=== PATIENT | male | born 1955 | race African-American/Black ===

== ENCOUNTER 2018-12-10 23:14 | Inpatient (IN) ==
[2018-12-10] MEDS: NOREPINEPHRINE 8 MG in SODIUM CHLORIDE 0.9% 242 ML IV PRN (23:37)
[2018-12-10] MEDS ORDERED: fentaNYL INJ 1,250 MCG in SODIUM CHLORIDE 0.9% 225 ML IV PRN (23:49)
[2018-12-10] MEDS ORDERED: SODIUM CHLORIDE 0.9% 500 ML IV STA (23:59)
[2018-12-11 00:20] LABS: ABG Oxygen Saturation 99.1 % (95-100); ABG PCO2 31.3 MM HG (35-48); ABG PH 7.444 (7.35-7.45); ABG PO2 181.8 MM HG (80-95); ABG TCO2 21.9 MMOL/L (23-27)
[2018-12-11] MEDS ORDERED: ASPIRIN 300 MG SUPP RECTAL ONE (00:48)
[2018-12-11] MEDS ORDERED: ASPIRIN 300 MG SUPP RECTAL STA (00:53)
[2018-12-11 00:58] LABS: Apearance,Urine Slightly Hazy (Clear); Bilirubin,Urine Negative (Negative); Blood, Urine Negative (Negative); Glucose,Urine (UA) >=500 mg/dL (Negative); Hyaline Casts,Urine 4 /LPF (0-3); Ketones,Urine 5 mg/dL (Negative); Mucus,Urine Occasional /LPF (Occasional); Nitrite,Urine Negative (Negative); Protein,Urine 30 MG/DL; RBC,Urine 1 /HPF (0-4); Squamous Epithelial Cell,Urine Occasional /HPF (0-10); Urine Color Yellow (Yellow); Urine Specific Gravity 1.026 (1.001-1.035); Urine Urobilinogen < 2.0 EU/DL (0.2-1.0); WBC,Urine 2 /HPF (0-6)
[2018-12-11] MEDS ORDERED: INSULIN LISPRO 100 UNIT/ML IV STA (01:01)
[2018-12-11] MEDS ORDERED: INSULIN LISPRO 100 UNIT/ML ONE (01:06)
[2018-12-11 01:17] LABS: Basophils % 0.3 % (0.0-0.8); Hematocrit 51.6 VOL% (42.0-52.0); Hemoglobin 15.5 GM/DL (14.0-18.0); Immature Granulocytes % 0.3 %; Immature Granulocytes Absolute 0.04 #; Lymphocytes # 1.5 10*3/uL (1.4-4.0); Lymphocytes % 12.3 % (21.2-54.2); Mean Corpuscular Hemoglobin 30 PG (27-34); Mean Corpuscular Volume 98.9 FL (87-102); Mean Platelet Volume 11.2 FL (9.6-12.0); Monocytes # 1.2 10*3/uL (0.11-0.8); Monocytes % 10.2 % (1.7-12.7); NRBC # 0.03 10*3/uL; Neutrophils # 9.3 10*3/uL (1.4-7.4); Neutrophils % 76.9 % (38.7-73.9); Platelet Count 426 T/CUMM (130-400); Red Blood Count 5.22 MC/CUMM (3.8-5.5); Red Cell Distribution Width 13.2 % (9.3-17.3); White Blood Count 12.2 T/CUMM (4-12)
[2018-12-11] MEDS ORDERED: LIDOCAINE 1% 20 ML VIAL ONE (01:19)
[2018-12-11 01:58] LABS: INR 1.1; PT Patient Result 11.4 SECS; Partial Thromboplastin Time 24.4 SECS (0-40)
[2018-12-11] MEDS ORDERED: ENOXAPARIN 30 MG/0.3 ML SYRINGE ONE (01:58)
[2018-12-11 02:06] LABS: Band Neutrophils 5 % (0-10); Lymphocytes 16 % (20-55); Metamyelocytes 1 %; Myelocytes 1 %; Segmented Neutrophils 68 % (50-85)
[2018-12-11 02:07] LABS: Platelet Estimate Increased
[2018-12-11 02:08] LABS: Total Cells Counted 100
[2018-12-11 02:15] LABS: Albumin 2.9 G/DL (3.4-5.0); Bilirubin,Total 0.5 MG/DL (0.2-1.0); Calcium 8.4 MG/DL (8.5-10.1); Osmolality,Calculated 336.3 MOS/KG (273-304); Thyroid Stimulating Hormone 4.03 uIU/ml (0.358-3.74); Total Protein 7.1 G/DL (6.4-8.3)
[2018-12-11] MEDS ORDERED: ALBUTEROL/IPRATROPIUM 3 ML NEB RESP TX PRN (02:17)
[2018-12-11 03:27] LABS: Risk Ratio 6.16; VLDL CHOLESTEROL 42.8 MG/DL
[2018-12-11 03:43] LABS: Troponin I 0.475 NG/ML (0.00-0.045)
[2018-12-11 03:44] LABS: ABG Base Excess -2.9 MMOL/L (-2.5-2.5); ABG Oxygen Saturation 99.7 % (95-100); ABG PCO2 32.4 MM HG (35-48); ABG PH 7.413 (7.35-7.45); ABG TCO2 17.7 MMOL/L (23-27)
[2018-12-11 04:06] LABS: Troponin I 0.491 NG/ML (0.00-0.045)
[2018-12-11 04:16] LABS: Basophils % 0.3 % (0.0-0.8); Eosinophils % 0.1 % (0.00-10.9); Hematocrit 45.6 VOL% (42.0-52.0); Hemoglobin 13.9 GM/DL (14.0-18.0); Immature Granulocytes % 0.4 %; Immature Granulocytes Absolute 0.05 #; Lymphocytes # 1.8 10*3/uL (1.4-4.0); Lymphocytes % 15.7 % (21.2-54.2); Mean Corpuscular HGB Conc 30.5 GM/DL (32-36); Mean Corpuscular Hemoglobin 30 PG (27-34); Mean Corpuscular Volume 99.6 FL (87-102); Mean Platelet Volume 10.7 FL (9.6-12.0); Monocytes # 1.1 10*3/uL (0.11-0.8); Monocytes % 9.9 % (1.7-12.7); NRBC # 0.03 10*3/uL; Neutrophils # 8.4 10*3/uL (1.4-7.4); Neutrophils % 73.6 % (38.7-73.9); Platelet Count 327 T/CUMM (130-400); Red Blood Count 4.58 MC/CUMM (3.8-5.5); Red Cell Distribution Width 12.8 % (9.3-17.3); White Blood Count 11.5 T/CUMM (4-12)
[2018-12-11 04:25] LABS: Albumin 2.8 G/DL (3.4-5.0); Bilirubin,Total 0.6 MG/DL (0.2-1.0); Calcium 7.9 MG/DL (8.5-10.1); Osmolality,Calculated 329.7 MOS/KG (273-304); Potassium 3.9 MMOL/L (3.5-5.1); Total Protein 6.8 G/DL (6.4-8.3)
[2018-12-11 04:30] LABS: Band Neutrophils 9 % (0-10); Lymphocytes 25 % (20-55); Segmented Neutrophils 60 % (50-85); Total Cells Counted 100
[2018-12-11] MEDS: SODIUM CHLORIDE 0.9% 1,000 ML IV SCH ×2 (04:30→13:31)
[2018-12-11 04:34] LABS: Platelet Estimate Normal; Polychromasia Few
[2018-12-11] MEDS ORDERED: INSULIN LISPRO 100 UNIT/ML SUBCUT SCH (06:00)
[2018-12-11 06:13] LABS: Apearance,Urine CLEAR (Clear); Bilirubin,Urine Negative (Negative); Blood, Urine Small mg/dL (Negative); Glucose,Urine (UA) >=500 mg/dL (Negative); Ketones,Urine Negative (Negative); Nitrite,Urine Negative (Negative); Protein,Urine 30 MG/DL; RBC,Urine 23 /HPF (0-4); Renal Epithelial Cells,Urine Occasional /HPF (<1); Urine Color Yellow (Yellow); Urine Specific Gravity > 1.060 (1.001-1.035); WBC,Urine 4 /HPF (0-6)
[2018-12-11] MEDS ORDERED: ASPIRIN EC 81 MG TABLET PO SCH (09:00)
[2018-12-11] MEDS ORDERED: DORZOLAMIDE/TIMOLOL OPH SOLN 10 ML BOTTLE BOTH EYES SCH (09:00)
[2018-12-11] MEDS ORDERED: CLINDAMYCIN 300 MG CAPSULE PO SCH (09:00)
[2018-12-11] MEDS ORDERED: CEFUROXIME 500 MG TABLET PO SCH (09:00)
[2018-12-11] MEDS: CLINDAMYCIN INJ 600 MG in PREMIX 1 EACH IV SCH ×3 (09:06→18:30)
[2018-12-11] MEDS: PIPERACILLIN/TAZOBACTAM 3,375 MG in SODIUM CHLORIDE 0.9% 100 ML IV SCH ×2 (09:07→17:36)
[2018-12-11] MEDS: methylPREDNISolone SOD SUC 40 MG/1 ML VIAL IV SCH ×2 (09:07→21:30)
[2018-12-11] MEDS: INSULIN GLARGINE 100 UNIT/ML SUBCUT SCH (09:07)
[2018-12-11] MEDS: ATORVASTATIN 80 MG TABLET PO SCH (09:08)
[2018-12-11] MEDS: OMEGA 3 ACID ETHYL ESTERS 1 GM CAPSULE PO SCH ×2 (09:08→21:30)
[2018-12-11] MEDS: PANTOPRAZOLE 40 MG VIAL IV SCH (09:08)
[2018-12-11] MEDS: METOPROLOL TARTRATE 25 MG TABLET PO SCH ×2 (09:08→21:30)
[2018-12-11 09:50] LABS: Calcium 7.9 MG/DL (8.5-10.1); Osmolality,Calculated 326.7 MOS/KG (273-304); Potassium 3.7 MMOL/L (3.5-5.1)
[2018-12-11] MEDS: INSULIN REGULAR DRIP 100 ML IV PRN (10:14)
[2018-12-11] MEDS: NOREPINEPHRINE 8 MG in SODIUM CHLORIDE 0.9% 242 ML IV PRN (10:56)
[2018-12-11] MEDS: INSULIN REGULAR 100 UNIT/ML IV PRN ×3 (11:51→16:15)
[2018-12-11] MEDS: ENOXAPARIN 30 MG/0.3 ML SYRINGE SUBCUT SCH (13:30)
[2018-12-11] MEDS: BRIMONIDINE 0.15% OPH SOLN 1 DROP/DROPS BOTTLE BOTH EYES SCH ×2 (13:30→21:30)
[2018-12-11] MEDS ORDERED: HEPARIN/NACL 0.9% 2 UNITS/ML 500 ML IV ONE (15:15)
[2018-12-11] MEDS: fentaNYL INJ 1,250 MCG in SODIUM CHLORIDE 0.9% 225 ML IV PRN (18:04)
[2018-12-11] MEDS: BIMATOPROST 0.01% OPH SOLN 2.5 ML BOTTLE BOTH EYES SCH (21:30)
[2018-12-12] MEDS: SODIUM CHLORIDE 0.9% 1,000 ML IV SCH
[2018-12-12] MEDS: PIPERACILLIN/TAZOBACTAM 3,375 MG in SODIUM CHLORIDE 0.9% 100 ML IV SCH ×4 (00:30→23:34)
[2018-12-12] MEDS: CLINDAMYCIN INJ 600 MG in PREMIX 1 EACH IV SCH ×4 (01:30→20:20)
[2018-12-12] MEDS: INSULIN REGULAR DRIP 100 ML IV PRN (05:58)
[2018-12-12] MEDS ORDERED: ADENOSINE 6 MG/2 ML VIAL ONE ×2 (06:34→06:43)
[2018-12-12] MEDS ORDERED: ADENOSINE 6 MG/2 ML VIAL IV ONE ×2 (06:41→06:44)
[2018-12-12 06:47] LABS: ABG Base Excess -1.7 MMOL/L (-2.5-2.5); ABG HCO3 22.9 MMOL/L (20-26); ABG Oxygen Saturation 94.4 % (95-100); ABG PCO2 29.8 MM HG (35-48); ABG PO2 65.7 MM HG (80-95)
[2018-12-12 07:10] LABS: Basophils % 0.2 % (0.0-0.8); Hematocrit 41.4 VOL% (42.0-52.0); Immature Granulocytes % 0.6 %; Immature Granulocytes Absolute 0.07 #; Lymphocytes # 2.3 10*3/uL (1.4-4.0); Lymphocytes % 18.5 % (21.2-54.2); Mean Corpuscular HGB Conc 29.7 GM/DL (32-36); Mean Corpuscular Hemoglobin 30 PG (27-34); Mean Platelet Volume 10.9 FL (9.6-12.0); Monocytes # 0.9 10*3/uL (0.11-0.8); Monocytes % 6.7 % (1.7-12.7); NRBC # 0.05 10*3/uL; Neutrophils # 9.4 10*3/uL (1.4-7.4); Platelet Count 205 T/CUMM (130-400); Red Cell Distribution Width 13.2 % (9.3-17.3); White Blood Count 12.6 T/CUMM (4-12)
[2018-12-12 07:11] LABS: Hemoglobin 12.3 GM/DL (14.0-18.0)
[2018-12-12 07:15] LABS: Albumin 2.1 G/DL (3.4-5.0); Bilirubin,Total 1.3 MG/DL (0.2-1.0); Calcium 7.5 MG/DL (8.5-10.1); Osmolality,Calculated 329.5 MOS/KG (273-304); Potassium 3.7 MMOL/L (3.5-5.1); Total Protein 6.3 G/DL (6.4-8.3)
[2018-12-12 07:30] LABS: Band Neutrophils 1 % (0-10); Hypochromasia Slight; Lymphocytes 16 % (20-55); Platelet Estimate Adequate; Segmented Neutrophils 79 % (50-85); Total Cells Counted 100
[2018-12-12] MEDS ORDERED: AMIODARONE 450 MG/9 ML VIAL IV ONE (07:44)
[2018-12-12] MEDS ORDERED: AMIODARONE INJ 150 MG in DEXTROSE 5% 100 ML IV ONE ×2 (07:45→07:49)
[2018-12-12] MEDS ORDERED: AMIODARONE 150 MG/3 ML VIAL ONE (07:58)
[2018-12-12] MEDS ORDERED: AMIODARONE INJ 450 MG in DEXTROSE 5% 241 ML IV SCH ×3 (08:00→14:00)
[2018-12-12] MEDS ORDERED: SODIUM CHLORIDE 0.45% 1,000 ML IV SCH (08:00)
[2018-12-12] MEDS ORDERED: ASPIRIN CHEW 81 MG TABLET PO ONE (08:02)
[2018-12-12] MEDS: METOPROLOL TARTRATE 25 MG TABLET PO SCH ×2 (08:13→21:10)
[2018-12-12] MEDS: ASPIRIN CHEW 81 MG TABLET PO SCH (08:14)
[2018-12-12] MEDS: ATORVASTATIN 80 MG TABLET PO SCH (08:14)
[2018-12-12] MEDS: OMEGA 3 ACID ETHYL ESTERS 1 GM CAPSULE PO SCH ×2 (08:14→21:10)
[2018-12-12] MEDS: methylPREDNISolone SOD SUC 40 MG/1 ML VIAL IV SCH ×2 (08:15→20:20)
[2018-12-12] MEDS: ENOXAPARIN 30 MG/0.3 ML SYRINGE SUBCUT SCH (08:15)
[2018-12-12] MEDS: INSULIN GLARGINE 100 UNIT/ML SUBCUT SCH (08:15)
[2018-12-12] MEDS: BRIMONIDINE 0.15% OPH SOLN 1 DROP/DROPS BOTTLE BOTH EYES SCH ×2 (08:16→21:10)
[2018-12-12] MEDS: PANTOPRAZOLE 40 MG VIAL IV SCH (08:18)
[2018-12-12] MEDS ORDERED: GLUCAGON 1 MG VIAL IM PRN (09:25)
[2018-12-12] MEDS ORDERED: DEXTROSE 5% 1,000 ML IV SCH (09:30)
[2018-12-12] MEDS: fentaNYL INJ 1,250 MCG in SODIUM CHLORIDE 0.9% 225 ML IV PRN (09:39)
[2018-12-12] MEDS: ACETAMINOPHEN 325 MG/10.15 ML UDCUP PO PRN ×2 (09:45→13:35)
[2018-12-12] MEDS ORDERED: DEXTROSE 50% 25 GM/50 ML VIAL IV PRN (11:23)
[2018-12-12] MEDS: INSULIN REGULAR 100 UNIT/ML SUBCUT SCH ×2 (11:51→18:09)
[2018-12-12] MEDS ORDERED: IBUPROFEN 100 MG/5 ML UDCUP PO ONE (14:09)
[2018-12-12] MEDS: AMIODARONE INJ 450 MG in DEXTROSE 5% 241 ML IV SCH (14:58)
[2018-12-12] MEDS: MENTHOL/ZINC OXIDE OINT 71 GM JAR TOP SCH ×2 (16:11→21:10)
[2018-12-12] MEDS: SODIUM CHLORIDE 0.45% 1,000 ML IV SCH (18:19)
[2018-12-12] MEDS ORDERED: INSULIN REGULAR 100 UNIT/ML SUBCUT ONE (21:08)
[2018-12-12] MEDS: BIMATOPROST 0.01% OPH SOLN 2.5 ML BOTTLE BOTH EYES SCH (21:22)
[2018-12-13] MEDS: INSULIN REGULAR 100 UNIT/ML SUBCUT SCH (00:13)
[2018-12-13] MEDS: INSULIN GLARGINE 100 UNIT/ML SUBCUT SCH ×3 (00:14→20:03)
[2018-12-13] MEDS: CLINDAMYCIN INJ 600 MG in PREMIX 1 EACH IV SCH ×4 (01:41→20:03)
[2018-12-13] MEDS: fentaNYL INJ 1,250 MCG in SODIUM CHLORIDE 0.9% 225 ML IV PRN ×2 (02:46→15:05)
[2018-12-13] MEDS: INSULIN REGULAR DRIP 100 ML IV PRN ×4 (04:36→23:13)
[2018-12-13 04:58] LABS: ABG Base Excess -5.4 MMOL/L (-2.5-2.5); ABG HCO3 18.5 MMOL/L (20-26); ABG Oxygen Saturation 97.5 % (95-100); ABG PCO2 30.5 MM HG (35-48); ABG PO2 107.2 MM HG (80-95); ABG TCO2 19.4 MMOL/L (23-27)
[2018-12-13 05:08] LABS: Albumin 1.9 G/DL (3.4-5.0); Bilirubin,Total 1.2 MG/DL (0.2-1.0); Calcium 6.6 MG/DL (8.5-10.1)
[2018-12-13 05:43] LABS: Basophils % 0.2 % (0.0-0.8); Immature Granulocytes % 1.1 %; Immature Granulocytes Absolute 0.13 #; Lymphocytes # 0.8 10*3/uL (1.4-4.0); Lymphocytes % 6.7 % (21.2-54.2); Mean Corpuscular HGB Conc 29.7 GM/DL (32-36); Mean Corpuscular Hemoglobin 31 PG (27-34); Mean Corpuscular Volume 102.7 FL (87-102); Monocytes # 0.7 10*3/uL (0.11-0.8); Monocytes % 5.9 % (1.7-12.7); NRBC # 0.12 10*3/uL; Neutrophils # 10.5 10*3/uL (1.4-7.4); Neutrophils % 86.1 % (38.7-73.9); Platelet Count 167 T/CUMM (130-400); Red Blood Count 3.31 MC/CUMM (3.8-5.5); Red Cell Distribution Width 13.3 % (9.3-17.3); White Blood Count 12.2 T/CUMM (4-12)
[2018-12-13 05:47] LABS: Hemoglobin 10.1 GM/DL (14.0-18.0)
[2018-12-13 05:57] LABS: Band Neutrophils 1 % (0-10); Hypochromasia 1+; Lymphocytes 7 % (20-55); Nucleated Red Blood Cells 1 (0-5); Platelet Estimate Adequate; Segmented Neutrophils 87 % (50-85); Total Cells Counted 100
[2018-12-13] MEDS: AMIODARONE INJ 450 MG in DEXTROSE 5% 241 ML IV SCH (06:14)
[2018-12-13] MEDS: PANTOPRAZOLE 40 MG VIAL IV SCH (08:04)
[2018-12-13] MEDS: ENOXAPARIN 30 MG/0.3 ML SYRINGE SUBCUT SCH (08:04)
[2018-12-13] MEDS: ACETAMINOPHEN 325 MG/10.15 ML UDCUP PO PRN ×4 (08:05→20:04)
[2018-12-13] MEDS: ASPIRIN CHEW 81 MG TABLET PO SCH (08:06)
[2018-12-13] MEDS: ATORVASTATIN 80 MG TABLET PO SCH (08:06)
[2018-12-13] MEDS: OMEGA 3 ACID ETHYL ESTERS 1 GM CAPSULE PO SCH ×2 (08:06→20:04)
[2018-12-13] MEDS: methylPREDNISolone SOD SUC 40 MG/1 ML VIAL IV SCH (08:07)
[2018-12-13] MEDS: METOPROLOL TARTRATE 25 MG TABLET PO SCH ×2 (08:07→20:10)
[2018-12-13] MEDS: BRIMONIDINE 0.15% OPH SOLN 1 DROP/DROPS BOTTLE BOTH EYES SCH ×2 (08:11→20:10)
[2018-12-13] MEDS: MENTHOL/ZINC OXIDE OINT 71 GM JAR TOP SCH ×2 (08:11→20:07)
[2018-12-13] MEDS: PIPERACILLIN/TAZOBACTAM 3,375 MG in SODIUM CHLORIDE 0.9% 100 ML IV SCH ×3 (08:16→23:20)
[2018-12-13] MEDS: SODIUM CHLORIDE 0.45% 1,000 ML IV SCH (09:39)
[2018-12-13] MEDS ORDERED: NOREPINEPHRINE 4 MG/4 ML VIAL IV ONE (09:51)
[2018-12-13] MEDS: NOREPINEPHRINE 8 MG in SODIUM CHLORIDE 0.9% 242 ML IV PRN ×2 (09:59→18:42)
[2018-12-13] MEDS: AMIODARONE 200 MG TABLET PO SCH (20:07)
[2018-12-13] MEDS: BIMATOPROST 0.01% OPH SOLN 2.5 ML BOTTLE BOTH EYES SCH (20:08)
[2018-12-14] MEDS: SODIUM CHLORIDE 0.45% 1,000 ML IV SCH ×2 (00:04→19:13)
[2018-12-14] MEDS: METOPROLOL TARTRATE 25 MG TABLET PO SCH ×3 (01:54→20:50)
[2018-12-14] MEDS ORDERED: IBUPROFEN 800 MG TABLET PO ONE (01:55)
[2018-12-14] MEDS: CLINDAMYCIN INJ 600 MG in PREMIX 1 EACH IV SCH ×4 (02:12→21:13)
[2018-12-14] MEDS: INSULIN REGULAR DRIP 100 ML IV PRN (03:30)
[2018-12-14 04:24] LABS: ABG HCO3 18.7 MMOL/L (20-26); ABG Oxygen Saturation 96.7 % (95-100); ABG PCO2 29.9 MM HG (35-48); ABG PH 7.415 (7.35-7.45); ABG PO2 90.8 MM HG (80-95); ABG TCO2 19.7 MMOL/L (23-27)
[2018-12-14 04:26] LABS: Basophils % 0.1 % (0.0-0.8); Hematocrit 29.8 VOL% (42.0-52.0); Hemoglobin 8.8 GM/DL (14.0-18.0); Immature Granulocytes % 0.8 %; Immature Granulocytes Absolute 0.11 #; Lymphocytes # 1.9 10*3/uL (1.4-4.0); Mean Corpuscular HGB Conc 29.5 GM/DL (32-36); Mean Corpuscular Hemoglobin 30 PG (27-34); Mean Corpuscular Volume 101.4 FL (87-102); Mean Platelet Volume 12.1 FL (9.6-12.0); Monocytes # 0.8 10*3/uL (0.11-0.8); NRBC # 0.03 10*3/uL; Neutrophils # 10.9 10*3/uL (1.4-7.4); Neutrophils % 79.1 % (38.7-73.9); Platelet Count 187 T/CUMM (130-400); Red Blood Count 2.94 MC/CUMM (3.8-5.5); Red Cell Distribution Width 12.9 % (9.3-17.3); White Blood Count 13.8 T/CUMM (4-12)
[2018-12-14 04:54] LABS: Albumin 1.9 G/DL (3.4-5.0); Band Neutrophils 1 % (0-10); Bilirubin,Total 1.1 MG/DL (0.2-1.0); Calcium 6.4 MG/DL (8.5-10.1); Hypochromasia 1+; Lymphocytes 23 % (20-55); Osmolality,Calculated 318.6 MOS/KG (273-304); Platelet Estimate Adequate; Potassium 3.6 MMOL/L (3.5-5.1); Segmented Neutrophils 72 % (50-85); Total Cells Counted 100; Total Protein 5.6 G/DL (6.4-8.3)
[2018-12-14] MEDS: PIPERACILLIN/TAZOBACTAM 3,375 MG in SODIUM CHLORIDE 0.9% 100 ML IV SCH ×2 (08:24→16:58)
[2018-12-14] MEDS: AMIODARONE 200 MG TABLET PO SCH ×2 (08:30→21:12)
[2018-12-14] MEDS: ASPIRIN CHEW 81 MG TABLET PO SCH (08:30)
[2018-12-14] MEDS: ATORVASTATIN 80 MG TABLET PO SCH (08:30)
[2018-12-14] MEDS: NOREPINEPHRINE 8 MG in SODIUM CHLORIDE 0.9% 242 ML IV PRN ×2 (08:31→17:55)
[2018-12-14] MEDS: OMEGA 3 ACID ETHYL ESTERS 1 GM CAPSULE PO SCH ×2 (08:33→21:12)
[2018-12-14] MEDS: PANTOPRAZOLE 40 MG VIAL IV SCH (08:51)
[2018-12-14] MEDS: ENOXAPARIN 30 MG/0.3 ML SYRINGE SUBCUT SCH (08:52)
[2018-12-14] MEDS: INSULIN GLARGINE 100 UNIT/ML SUBCUT SCH ×2 (08:53→21:13)
[2018-12-14] MEDS: BRIMONIDINE 0.15% OPH SOLN 1 DROP/DROPS BOTTLE BOTH EYES SCH ×2 (08:56→21:12)
[2018-12-14] MEDS: MENTHOL/ZINC OXIDE OINT 71 GM JAR TOP SCH ×2 (08:57→21:13)
[2018-12-14] MEDS: DEXTROSE 5% 1,000 ML IV SCH ×3 (12:55→23:15)
[2018-12-14] MEDS ORDERED: DIGOXIN 0.5 MG/2 ML AMP IV ONE (13:11)
[2018-12-14] MEDS ORDERED: ETOMIDATE 40 MG/20 ML VIAL IV ONE (15:14)
[2018-12-14] MEDS ORDERED: SUCCINYLCHOLINE 200 MG/10 ML VIAL ONE (15:15)
[2018-12-14] MEDS ORDERED: PROPOFOL 200 MG/20 ML VIAL IV ONE (15:30)
[2018-12-14] MEDS: fentaNYL INJ 1,250 MCG in SODIUM CHLORIDE 0.9% 225 ML IV PRN ×2 (15:30→20:49)
[2018-12-14] MEDS ORDERED: PROPOFOL 1,000 MG/100 ML BOTTLE IV ONE (15:32)
[2018-12-14 16:23] LABS: ABG Base Excess -6.7 MMOL/L (-2.5-2.5); ABG HCO3 18.9 MMOL/L (20-26); ABG Oxygen Saturation 98.6 % (95-100); ABG PH 7.315 (7.35-7.45); ABG PO2 179.3 MM HG (80-95); ABG TCO2 20.1 MMOL/L (23-27)
[2018-12-14] MEDS ORDERED: DEXTROSE 5% 500 ML IV SCH (17:00)
[2018-12-14] MEDS: PROPOFOL 1,000 MG/100 ML BOTTLE IV SCH ×2 (17:01→19:40)
[2018-12-14] MEDS: BIMATOPROST 0.01% OPH SOLN 2.5 ML BOTTLE BOTH EYES SCH (21:12)
[2018-12-14] MEDS: NOREPINEPHRINE 16 MG in SODIUM CHLORIDE 0.9% 234 ML IV PRN (21:57)
[2018-12-15] MEDS: PIPERACILLIN/TAZOBACTAM 3,375 MG in SODIUM CHLORIDE 0.9% 100 ML IV SCH ×3 (00:30→17:40)
[2018-12-15] MEDS: CLINDAMYCIN INJ 600 MG in PREMIX 1 EACH IV SCH ×4 (01:11→19:51)
[2018-12-15] MEDS: fentaNYL INJ 1,250 MCG in SODIUM CHLORIDE 0.9% 225 ML IV PRN ×3 (02:47→20:29)
[2018-12-15] MEDS: PROPOFOL 1,000 MG/100 ML BOTTLE IV SCH ×4 (04:41→22:36)
[2018-12-15 04:50] LABS: ABG Base Excess -5.1 MMOL/L (-2.5-2.5); ABG HCO3 20.2 MMOL/L (20-26); ABG PCO2 27.8 MM HG (35-48); ABG PH 7.422 (7.35-7.45); ABG TCO2 16.2 MMOL/L (23-27)
[2018-12-15 05:05] LABS: Basophils % 0.1 % (0.0-0.8); Eosinophils % 0.3 % (0.00-10.9); Hematocrit 24.6 VOL% (42.0-52.0); Hemoglobin 7.2 GM/DL (14.0-18.0); Immature Granulocytes % 1.8 %; Immature Granulocytes Absolute 0.21 #; Lymphocytes # 1.4 10*3/uL (1.4-4.0); Lymphocytes % 11.6 % (21.2-54.2); Mean Corpuscular HGB Conc 29.3 GM/DL (32-36); Mean Corpuscular Hemoglobin 30 PG (27-34); Mean Corpuscular Volume 103.4 FL (87-102); Mean Platelet Volume 12.8 FL (9.6-12.0); Monocytes # 0.7 10*3/uL (0.11-0.8); Monocytes % 6.1 % (1.7-12.7); Neutrophils # 9.3 10*3/uL (1.4-7.4); Neutrophils % 80.1 % (38.7-73.9); Platelet Count 172 T/CUMM (130-400); Red Blood Count 2.38 MC/CUMM (3.8-5.5); Red Cell Distribution Width 13.1 % (9.3-17.3); White Blood Count 11.6 T/CUMM (4-12)
[2018-12-15 05:29] LABS: Hypochromasia 1+; Lymphocytes 16 % (20-55); Nucleated Red Blood Cells 1 (0-5); Platelet Estimate Adequate; Segmented Neutrophils 80 % (50-85); Total Cells Counted 100
[2018-12-15 05:36] LABS: Albumin 1.6 G/DL (3.4-5.0); Bilirubin,Total 1.6 MG/DL (0.2-1.0); Calcium 6.8 MG/DL (8.5-10.1); Osmolality,Calculated 318.7 MOS/KG (273-304); Potassium 4.4 MMOL/L (3.5-5.1); Total Protein 5.1 G/DL (6.4-8.3)
[2018-12-15] MEDS ORDERED: SODIUM CHLORIDE 0.9% 1,000 ML IV PRN ×2 (07:22→09:43)
[2018-12-15] MEDS: METOPROLOL TARTRATE 25 MG TABLET PO SCH ×2 (09:22→20:13)
[2018-12-15] MEDS: ATORVASTATIN 80 MG TABLET PO SCH (09:22)
[2018-12-15] MEDS: OMEGA 3 ACID ETHYL ESTERS 1 GM CAPSULE PO SCH ×2 (09:22→20:27)
[2018-12-15] MEDS: AMIODARONE 200 MG TABLET PO SCH ×2 (09:22→20:27)
[2018-12-15] MEDS: ASPIRIN CHEW 81 MG TABLET PO SCH (09:23)
[2018-12-15] MEDS: BRIMONIDINE 0.15% OPH SOLN 1 DROP/DROPS BOTTLE BOTH EYES SCH ×2 (09:23→20:27)
[2018-12-15] MEDS: ENOXAPARIN 30 MG/0.3 ML SYRINGE SUBCUT SCH (09:23)
[2018-12-15] MEDS: MENTHOL/ZINC OXIDE OINT 71 GM JAR TOP SCH ×2 (09:24→20:27)
[2018-12-15] MEDS: PANTOPRAZOLE 40 MG VIAL IV SCH (09:24)
[2018-12-15] MEDS: INSULIN GLARGINE 100 UNIT/ML SUBCUT SCH ×2 (09:25→20:27)
[2018-12-15] MEDS: SODIUM CHLORIDE 0.9% 1,000 ML IV SCH (13:15)
[2018-12-15] MEDS: DEXTROSE 5% 1,000 ML IV SCH (14:54)
[2018-12-15] MEDS: NOREPINEPHRINE 16 MG in SODIUM CHLORIDE 0.9% 234 ML IV PRN (14:55)
[2018-12-15] MEDS ORDERED: INSULIN LISPRO 100 UNIT/ML SUBCUT SCH (18:00)
[2018-12-15] MEDS: BIMATOPROST 0.01% OPH SOLN 2.5 ML BOTTLE BOTH EYES SCH (20:27)
[2018-12-15] MEDS: INSULIN LISPRO 100 UNIT/ML SUBCUT SCH (20:27)
[2018-12-16] MEDS: PIPERACILLIN/TAZOBACTAM 3,375 MG in SODIUM CHLORIDE 0.9% 100 ML IV SCH ×4 (00:11→23:17)
[2018-12-16] MEDS: INSULIN LISPRO 100 UNIT/ML SUBCUT SCH ×7 (00:20→23:17)
[2018-12-16] MEDS: SODIUM CHLORIDE 0.9% 1,000 ML IV SCH (01:44)
[2018-12-16] MEDS: CLINDAMYCIN INJ 600 MG in PREMIX 1 EACH IV SCH ×3 (01:44→13:03)
[2018-12-16 04:13] LABS: ABG Base Excess -6.1 MMOL/L (-2.5-2.5); ABG HCO3 19.3 MMOL/L (20-26); ABG Oxygen Saturation 93.8 % (95-100); ABG PCO2 31.3 MM HG (35-48); ABG PH 7.375 (7.35-7.45); ABG PO2 67.4 MM HG (80-95); ABG TCO2 17.2 MMOL/L (23-27)
[2018-12-16] MEDS: fentaNYL INJ 1,250 MCG in SODIUM CHLORIDE 0.9% 225 ML IV PRN ×4 (04:19→21:50)
[2018-12-16 04:26] LABS: Basophils % 0.1 % (0.0-0.8); Eosinophils # 0.1 10*3/uL (0.0-0.87); Eosinophils % 0.7 % (0.00-10.9); Hematocrit 27.3 VOL% (42.0-52.0); Hemoglobin 8.3 GM/DL (14.0-18.0); Immature Granulocytes % 2.1 %; Immature Granulocytes Absolute 0.22 #; Lymphocytes # 1.7 10*3/uL (1.4-4.0); Lymphocytes % 15.8 % (21.2-54.2); Mean Corpuscular HGB Conc 30.4 GM/DL (32-36); Mean Corpuscular Hemoglobin 30 PG (27-34); Mean Corpuscular Volume 99.6 FL (87-102); Mean Platelet Volume 12.3 FL (9.6-12.0); Monocytes # 0.8 10*3/uL (0.11-0.8); Monocytes % 7.2 % (1.7-12.7); Neutrophils # 7.8 10*3/uL (1.4-7.4); Neutrophils % 74.1 % (38.7-73.9); Platelet Count 175 T/CUMM (130-400); Red Blood Count 2.74 MC/CUMM (3.8-5.5); White Blood Count 10.5 T/CUMM (4-12)
[2018-12-16 04:41] LABS: Calcium 7.1 MG/DL (8.5-10.1); Osmolality,Calculated 316.6 MOS/KG (273-304); Potassium 4.4 MMOL/L (3.5-5.1)
[2018-12-16 04:49] LABS: Hypochromasia 1+; Platelet Estimate Adequate
[2018-12-16] MEDS: PROPOFOL 1,000 MG/100 ML BOTTLE IV SCH ×3 (06:40→19:18)
[2018-12-16] MEDS: ACETAMINOPHEN 325 MG/10.15 ML UDCUP PO PRN (08:17)
[2018-12-16] MEDS: BRIMONIDINE 0.15% OPH SOLN 1 DROP/DROPS BOTTLE BOTH EYES SCH ×2 (08:17→20:00)
[2018-12-16] MEDS: ASPIRIN CHEW 81 MG TABLET PO SCH (08:17)
[2018-12-16] MEDS: PANTOPRAZOLE 40 MG VIAL IV SCH (08:17)
[2018-12-16] MEDS: OMEGA 3 ACID ETHYL ESTERS 1 GM CAPSULE PO SCH ×2 (08:18→21:06)
[2018-12-16] MEDS: AMIODARONE 200 MG TABLET PO SCH (08:18)
[2018-12-16] MEDS: ENOXAPARIN 30 MG/0.3 ML SYRINGE SUBCUT SCH (08:18)
[2018-12-16] MEDS: ATORVASTATIN 80 MG TABLET PO SCH (08:18)
[2018-12-16] MEDS: METOPROLOL TARTRATE 25 MG TABLET PO SCH ×2 (08:19→21:06)
[2018-12-16] MEDS: INSULIN GLARGINE 100 UNIT/ML SUBCUT SCH ×2 (08:19→20:03)
[2018-12-16] MEDS: MENTHOL/ZINC OXIDE OINT 71 GM JAR TOP SCH ×2 (08:19→20:00)
[2018-12-16] MEDS ORDERED: VANCOMYCIN INJ 1,000 MG in SODIUM CHLORIDE 0.9% 250 ML IV SCH (13:00)
[2018-12-16] MEDS: SODIUM CHLORIDE 0.45% 1,000 ML IV SCH (13:38)
[2018-12-16] MEDS: VANCOMYCIN INJ 1,500 MG in SODIUM CHLORIDE 0.9% 500 ML IV SCH (13:43)
[2018-12-16] MEDS: NOREPINEPHRINE 16 MG in SODIUM CHLORIDE 0.9% 234 ML IV PRN (15:32)
[2018-12-16] MEDS: DESITIN 4OZ/NYSTATIN 15 GRAM MIXTURE PASTE TOP SCH ×2 (16:28→20:00)
[2018-12-16] MEDS ORDERED: HEPARIN/NACL 0.9% 2 UNITS/ML 500 ML IV ONE (19:19)
[2018-12-16] MEDS: BIMATOPROST 0.01% OPH SOLN 2.5 ML BOTTLE BOTH EYES SCH (20:00)
[2018-12-16] MEDS: fentaNYL INJ 2,500 MCG in SODIUM CHLORIDE 0.9% 450 ML IV PRN (21:53)
[2018-12-17] MEDS: ACETAMINOPHEN 325 MG/10.15 ML UDCUP PO PRN ×2 (00:27→03:50)
[2018-12-17] MEDS: SODIUM CHLORIDE 0.45% 1,000 ML IV SCH ×2 (03:01→15:51)
[2018-12-17] MEDS: fentaNYL INJ 2,500 MCG in SODIUM CHLORIDE 0.9% 450 ML IV PRN ×3 (03:02→15:50)
[2018-12-17] MEDS: INSULIN LISPRO 100 UNIT/ML SUBCUT SCH ×5 (03:25→20:15)
[2018-12-17 03:46] LABS: ABG HCO3 19.5 MMOL/L (20-26); ABG Oxygen Saturation 95.5 % (95-100); ABG PCO2 36.9 MM HG (35-48); ABG PH 7.328 (7.35-7.45); ABG TCO2 17.5 MMOL/L (23-27)
[2018-12-17 04:12] LABS: Basophils % 0.2 % (0.0-0.8); Eosinophils # 0.1 10*3/uL (0.0-0.87); Eosinophils % 1.1 % (0.00-10.9); Hematocrit 34.7 VOL% (42.0-52.0); Hemoglobin 10.5 GM/DL (14.0-18.0); Immature Granulocytes % 1.3 %; Immature Granulocytes Absolute 0.11 #; Lymphocytes # 1.3 10*3/uL (1.4-4.0); Lymphocytes % 15.7 % (21.2-54.2); Mean Corpuscular HGB Conc 30.3 GM/DL (32-36); Mean Corpuscular Hemoglobin 30 PG (27-34); Mean Corpuscular Volume 99.1 FL (87-102); Mean Platelet Volume 11.8 FL (9.6-12.0); Monocytes # 0.6 10*3/uL (0.11-0.8); Monocytes % 7.6 % (1.7-12.7); Neutrophils # 6.2 10*3/uL (1.4-7.4); Neutrophils % 74.1 % (38.7-73.9); Platelet Count 186 T/CUMM (130-400); Red Cell Distribution Width 15.3 % (9.3-17.3); White Blood Count 8.4 T/CUMM (4-12)
[2018-12-17 04:21] LABS: Calcium 7.4 MG/DL (8.5-10.1); Osmolality,Calculated 315.9 MOS/KG (273-304); Potassium 4.2 MMOL/L (3.5-5.1)
[2018-12-17 06:20] LABS: Anisocytosis 1+; Band Neutrophils 2 % (0-10); Lymphocytes 13 % (20-55); Platelet Estimate Adequate; Segmented Neutrophils 78 % (50-85); Total Cells Counted 100
[2018-12-17] MEDS: METOPROLOL TARTRATE 25 MG TABLET PO SCH ×2 (08:33→20:17)
[2018-12-17] MEDS: AMIODARONE 200 MG TABLET PO SCH (08:34)
[2018-12-17] MEDS: ASPIRIN CHEW 81 MG TABLET PO SCH (08:34)
[2018-12-17] MEDS: OMEGA 3 ACID ETHYL ESTERS 1 GM CAPSULE PO SCH ×2 (08:34→20:17)
[2018-12-17] MEDS: ATORVASTATIN 80 MG TABLET PO SCH (08:34)
[2018-12-17] MEDS: INSULIN GLARGINE 100 UNIT/ML SUBCUT SCH ×2 (08:35→20:16)
[2018-12-17] MEDS: PANTOPRAZOLE 40 MG VIAL IV SCH (08:36)
[2018-12-17] MEDS: PIPERACILLIN/TAZOBACTAM 3,375 MG in SODIUM CHLORIDE 0.9% 100 ML IV SCH ×3 (08:36→22:32)
[2018-12-17] MEDS: ENOXAPARIN 30 MG/0.3 ML SYRINGE SUBCUT SCH (08:36)
[2018-12-17] MEDS: BRIMONIDINE 0.15% OPH SOLN 1 DROP/DROPS BOTTLE BOTH EYES SCH ×2 (08:37→20:16)
[2018-12-17] MEDS: DESITIN 4OZ/NYSTATIN 15 GRAM MIXTURE PASTE TOP SCH ×2 (08:38→20:19)
[2018-12-17] MEDS: MENTHOL/ZINC OXIDE OINT 71 GM JAR TOP SCH ×2 (08:38→21:40)
[2018-12-17] MEDS ORDERED: VECURONIUM 10 MG VIAL IV ONE (09:23)
[2018-12-17] MEDS ORDERED: ETOMIDATE 20 MG/10 ML VIAL IV ONE (09:23)
[2018-12-17] MEDS: VANCOMYCIN INJ 1,500 MG in SODIUM CHLORIDE 0.9% 500 ML IV SCH (13:22)
[2018-12-17] MEDS: PROPOFOL 1,000 MG/100 ML BOTTLE IV SCH (16:00)
[2018-12-17] MEDS: BIMATOPROST 0.01% OPH SOLN 2.5 ML BOTTLE BOTH EYES SCH (20:16)
[2018-12-18] MEDS: INSULIN LISPRO 100 UNIT/ML SUBCUT SCH ×6 (00:25→20:25)
[2018-12-18] MEDS: fentaNYL INJ 2,500 MCG in SODIUM CHLORIDE 0.9% 450 ML IV PRN ×4 (00:53→23:05)
[2018-12-18 04:02] LABS: ABG Base Excess -3.6 MMOL/L (-2.5-2.5); ABG HCO3 19.4 MMOL/L (20-26); ABG PCO2 29.7 MM HG (35-48); ABG PH 7.432 (7.35-7.45); ABG PO2 108.6 MM HG (80-95); ABG TCO2 20.3 MMOL/L (23-27)
[2018-12-18 04:07] LABS: Basophils % 0.1 % (0.0-0.8); Eosinophils # 0.2 10*3/uL (0.0-0.87); Eosinophils % 1.4 % (0.00-10.9); Hematocrit 23.5 VOL% (42.0-52.0); Hemoglobin 6.9 GM/DL (14.0-18.0); Immature Granulocytes % 1.4 %; Immature Granulocytes Absolute 0.17 #; Lymphocytes # 1.4 10*3/uL (1.4-4.0); Lymphocytes % 11.4 % (21.2-54.2); Mean Corpuscular HGB Conc 29.4 GM/DL (32-36); Mean Corpuscular Hemoglobin 30 PG (27-34); Mean Corpuscular Volume 101.7 FL (87-102); Mean Platelet Volume 11.2 FL (9.6-12.0); Monocytes # 0.8 10*3/uL (0.11-0.8); Monocytes % 6.2 % (1.7-12.7); Neutrophils # 9.8 10*3/uL (1.4-7.4); Neutrophils % 79.5 % (38.7-73.9); Platelet Count 318 T/CUMM (130-400); Red Blood Count 2.31 MC/CUMM (3.8-5.5); Red Cell Distribution Width 15.5 % (9.3-17.3); White Blood Count 12.3 T/CUMM (4-12)
[2018-12-18 04:22] LABS: Calcium 7.4 MG/DL (8.5-10.1); Osmolality,Calculated 311.7 MOS/KG (273-304); Potassium 4.4 MMOL/L (3.5-5.1)
[2018-12-18] MEDS: SODIUM CHLORIDE 0.45% 1,000 ML IV SCH ×2 (04:31→19:00)
[2018-12-18 04:32] LABS: Band Neutrophils 3 % (0-10); Eosinophils 2 % (0-10); Lymphocytes 8 % (20-55); Segmented Neutrophils 86 % (50-85); Total Cells Counted 100
[2018-12-18 04:33] LABS: Anisocytosis 1+; Hypochromasia 1+; Microcytosis 1+; Platelet Estimate Adequate
[2018-12-18 04:55] LABS: ABG Oxygen Saturation 98.2 % (95-100)
[2018-12-18 06:56] LABS: Hematocrit 21.9 VOL% (42.0-52.0); Hemoglobin 6.5 GM/DL (14.0-18.0)
[2018-12-18] MEDS: ENOXAPARIN 30 MG/0.3 ML SYRINGE SUBCUT SCH (08:06)
[2018-12-18] MEDS: INSULIN GLARGINE 100 UNIT/ML SUBCUT SCH ×2 (08:06→21:28)
[2018-12-18] MEDS: ACETAMINOPHEN 325 MG/10.15 ML UDCUP PO PRN (08:06)
[2018-12-18] MEDS: METOPROLOL TARTRATE 25 MG TABLET PO SCH ×2 (08:07→21:27)
[2018-12-18] MEDS: ATORVASTATIN 80 MG TABLET PO SCH (08:07)
[2018-12-18] MEDS: PANTOPRAZOLE 40 MG VIAL IV SCH (08:07)
[2018-12-18] MEDS: PIPERACILLIN/TAZOBACTAM 3,375 MG in SODIUM CHLORIDE 0.9% 100 ML IV SCH ×2 (08:07→14:41)
[2018-12-18] MEDS: AMIODARONE 200 MG TABLET PO SCH (08:07)
[2018-12-18] MEDS: OMEGA 3 ACID ETHYL ESTERS 1 GM CAPSULE PO SCH ×2 (08:07→21:27)
[2018-12-18] MEDS: BRIMONIDINE 0.15% OPH SOLN 1 DROP/DROPS BOTTLE BOTH EYES SCH ×2 (08:08→21:42)
[2018-12-18] MEDS: MENTHOL/ZINC OXIDE OINT 71 GM JAR TOP SCH ×2 (08:08→21:42)
[2018-12-18] MEDS: ASPIRIN CHEW 81 MG TABLET PO SCH (08:08)
[2018-12-18] MEDS: DESITIN 4OZ/NYSTATIN 15 GRAM MIXTURE PASTE TOP SCH ×2 (08:08→21:42)
[2018-12-18] MEDS ORDERED: NOREPINEPHRINE 4 MG/4 ML VIAL IV ONE (08:49)
[2018-12-18] MEDS: VANCOMYCIN INJ 1,500 MG in SODIUM CHLORIDE 0.9% 500 ML IV SCH (13:46)
[2018-12-18 15:12] LABS: Hematocrit 29.7 VOL% (42.0-52.0)
[2018-12-18 15:14] LABS: Hemoglobin 9.3 GM/DL (14.0-18.0)
[2018-12-18] MEDS: PROPOFOL 1,000 MG/100 ML BOTTLE IV SCH (16:32)
[2018-12-18] MEDS: BIMATOPROST 0.01% OPH SOLN 2.5 ML BOTTLE BOTH EYES SCH (21:42)
[2018-12-19] MEDS: INSULIN LISPRO 100 UNIT/ML SUBCUT SCH ×6 (00:42→20:25)
[2018-12-19] MEDS: ACETAMINOPHEN 325 MG/10.15 ML UDCUP PO PRN (00:42)
[2018-12-19] MEDS: SODIUM CHLORIDE 0.45% 1,000 ML IV SCH ×2 (04:07→20:25)
[2018-12-19] MEDS: fentaNYL INJ 2,500 MCG in SODIUM CHLORIDE 0.9% 450 ML IV PRN ×4 (04:43→21:20)
[2018-12-19 04:48] LABS: ABG Base Excess -4.4 MMOL/L (-2.5-2.5); ABG HCO3 20.8 MMOL/L (20-26); ABG Oxygen Saturation 93.2 % (95-100); ABG PCO2 35.8 MM HG (35-48); ABG PH 7.362 (7.35-7.45); ABG PO2 67.2 MM HG (80-95); ABG TCO2 16.7 MMOL/L (23-27)
[2018-12-19 05:07] LABS: Basophils % 0.1 % (0.0-0.8); Eosinophils # 0.2 10*3/uL (0.0-0.87); Eosinophils % 1.5 % (0.00-10.9); Hematocrit 28.4 VOL% (42.0-52.0); Hemoglobin 8.8 GM/DL (14.0-18.0); Immature Granulocytes % 2.1 %; Immature Granulocytes Absolute 0.27 #; Lymphocytes # 1.6 10*3/uL (1.4-4.0); Lymphocytes % 12.7 % (21.2-54.2); Mean Corpuscular Hemoglobin 30 PG (27-34); Mean Corpuscular Volume 98.3 FL (87-102); Monocytes # 0.7 10*3/uL (0.11-0.8); Monocytes % 5.3 % (1.7-12.7); NRBC # 0.02 10*3/uL; Neutrophils # 9.9 10*3/uL (1.4-7.4); Neutrophils % 78.3 % (38.7-73.9); Platelet Count 386 T/CUMM (130-400); Red Blood Count 2.89 MC/CUMM (3.8-5.5); Red Cell Distribution Width 16.5 % (9.3-17.3); White Blood Count 12.6 T/CUMM (4-12)
[2018-12-19 05:32] LABS: Prealbumin 12.1 MG/DL (20-40)
[2018-12-19 05:35] LABS: Hypochromasia 1+
[2018-12-19 05:36] LABS: Platelet Estimate Adequate
[2018-12-19 06:00] LABS: Calcium 7.4 MG/DL (8.5-10.1); Potassium 4.3 MMOL/L (3.5-5.1)
[2018-12-19] MEDS: LEVOFLOXACIN INJ 750 MG in PREMIX 1 EACH IV SCH (09:05)
[2018-12-19] MEDS: PANTOPRAZOLE 40 MG VIAL IV SCH (09:06)
[2018-12-19] MEDS: INSULIN GLARGINE 100 UNIT/ML SUBCUT SCH ×2 (09:07→23:13)
[2018-12-19] MEDS: ENOXAPARIN 40 MG/0.4 ML SYRINGE SUBCUT SCH (09:08)
[2018-12-19] MEDS: ASPIRIN CHEW 81 MG TABLET PO SCH (09:08)
[2018-12-19] MEDS: AMIODARONE 200 MG TABLET PO SCH (09:09)
[2018-12-19] MEDS: METOPROLOL TARTRATE 25 MG TABLET PO SCH ×2 (09:09→21:52)
[2018-12-19] MEDS: ATORVASTATIN 80 MG TABLET PO SCH (09:09)
[2018-12-19] MEDS: OMEGA 3 ACID ETHYL ESTERS 1 GM CAPSULE PO SCH ×2 (09:09→21:52)
[2018-12-19] MEDS: MENTHOL/ZINC OXIDE OINT 71 GM JAR TOP SCH ×2 (10:11→21:52)
[2018-12-19] MEDS: BRIMONIDINE 0.15% OPH SOLN 1 DROP/DROPS BOTTLE BOTH EYES SCH ×2 (10:11→21:50)
[2018-12-19] MEDS: DESITIN 4OZ/NYSTATIN 15 GRAM MIXTURE PASTE TOP SCH ×2 (12:20→21:52)
[2018-12-19] MEDS: POLYVINYL ALCOHOL 1.4% OPH SOLN 15 ML BOTTLE BOTH EYES PRN ×2 (16:00→17:22)
[2018-12-19] MEDS: VANCOMYCIN INJ 1,250 MG in SODIUM CHLORIDE 0.9% 250 ML IV SCH (16:00)
[2018-12-19] MEDS: PROPOFOL 1,000 MG/100 ML BOTTLE IV SCH (17:18)
[2018-12-19 18:21] LABS: ABG Base Excess -4.5 MMOL/L (-2.5-2.5); ABG HCO3 20.6 MMOL/L (20-26); ABG Oxygen Saturation 93.1 % (95-100); ABG PCO2 33.6 MM HG (35-48); ABG PH 7.383 (7.35-7.45); ABG PO2 64.5 MM HG (80-95); ABG TCO2 18.5 MMOL/L (23-27)
[2018-12-19] MEDS: POLYVINYL ALCOHOL 1.4% OPH SOLN 15 ML BOTTLE BOTH EYES SCH ×2 (19:41→21:52)
[2018-12-19] MEDS: BIMATOPROST 0.01% OPH SOLN 2.5 ML BOTTLE BOTH EYES SCH (21:52)
[2018-12-20] MEDS: INSULIN LISPRO 100 UNIT/ML SUBCUT SCH ×7 (00:49→20:35)
[2018-12-20] MEDS: fentaNYL INJ 2,500 MCG in SODIUM CHLORIDE 0.9% 450 ML IV PRN ×4 (03:00→19:45)
[2018-12-20 05:18] LABS: Basophils % 0.1 % (0.0-0.8); Eosinophils # 0.1 10*3/uL (0.0-0.87); Eosinophils % 0.9 % (0.00-10.9); Hematocrit 25.8 VOL% (42.0-52.0); Hemoglobin 7.8 GM/DL (14.0-18.0); Immature Granulocytes % 1.6 %; Immature Granulocytes Absolute 0.17 #; Lymphocytes # 1.9 10*3/uL (1.4-4.0); Lymphocytes % 18.1 % (21.2-54.2); Mean Corpuscular HGB Conc 30.2 GM/DL (32-36); Mean Corpuscular Hemoglobin 30 PG (27-34); Mean Corpuscular Volume 99.6 FL (87-102); Mean Platelet Volume 10.5 FL (9.6-12.0); Monocytes # 0.6 10*3/uL (0.11-0.8); Monocytes % 5.5 % (1.7-12.7); NRBC # 0.04 10*3/uL; Neutrophils # 7.8 10*3/uL (1.4-7.4); Neutrophils % 73.8 % (38.7-73.9); Platelet Count 428 T/CUMM (130-400); Red Blood Count 2.59 MC/CUMM (3.8-5.5); White Blood Count 10.5 T/CUMM (4-12)
[2018-12-20 05:31] LABS: Calcium 7.3 MG/DL (8.5-10.1)
[2018-12-20 05:32] LABS: Osmolality,Calculated 304.9 MOS/KG (273-304); Potassium 4.2 MMOL/L (3.5-5.1)
[2018-12-20 05:48] LABS: Band Neutrophils 1 % (0-10); Hypochromasia 1+; Lymphocytes 17 % (20-55); Nucleated Red Blood Cells 1 (0-5); Platelet Estimate Adequate; Segmented Neutrophils 77 % (50-85); Total Cells Counted 100
[2018-12-20 05:49] LABS: Microcytosis Slight
[2018-12-20] MEDS: VANCOMYCIN INJ 1,500 MG in SODIUM CHLORIDE 0.9% 500 ML IV SCH (07:28)
[2018-12-20] MEDS: LEVOFLOXACIN INJ 750 MG in PREMIX 1 EACH IV SCH (09:33)
[2018-12-20] MEDS: INSULIN GLARGINE 100 UNIT/ML SUBCUT SCH ×2 (09:53→20:58)
[2018-12-20] MEDS: PANTOPRAZOLE 40 MG VIAL IV SCH (09:54)
[2018-12-20] MEDS: ENOXAPARIN 40 MG/0.4 ML SYRINGE SUBCUT SCH (09:54)
[2018-12-20] MEDS: ATORVASTATIN 80 MG TABLET PO SCH (09:59)
[2018-12-20] MEDS: METOPROLOL TARTRATE 25 MG TABLET PO SCH ×2 (09:59→21:38)
[2018-12-20] MEDS: AMIODARONE 200 MG TABLET PO SCH (10:00)
[2018-12-20] MEDS: ASPIRIN CHEW 81 MG TABLET PO SCH (10:00)
[2018-12-20] MEDS: OMEGA 3 ACID ETHYL ESTERS 1 GM CAPSULE PO SCH ×2 (10:02→21:38)
[2018-12-20 10:11] LABS: ABG Base Excess -3.8 MMOL/L (-2.5-2.5); ABG HCO3 19.9 MMOL/L (20-26); ABG PCO2 31.1 MM HG (35-48); ABG PH 7.424 (7.35-7.45); ABG TCO2 20.9 MMOL/L (23-27); Allen Test Positive; Pt O2 Delivery Device Ventilator
[2018-12-20] MEDS: MENTHOL/ZINC OXIDE OINT 71 GM JAR TOP SCH ×2 (10:20→20:58)
[2018-12-20] MEDS: POLYVINYL ALCOHOL 1.4% OPH SOLN 15 ML BOTTLE BOTH EYES PRN (10:21)
[2018-12-20] MEDS: DESITIN 4OZ/NYSTATIN 15 GRAM MIXTURE PASTE TOP SCH ×2 (10:21→20:58)
[2018-12-20] MEDS: POLYVINYL ALCOHOL 1.4% OPH SOLN 15 ML BOTTLE BOTH EYES SCH ×3 (10:22→20:58)
[2018-12-20] MEDS: BRIMONIDINE 0.15% OPH SOLN 1 DROP/DROPS BOTTLE BOTH EYES SCH ×2 (10:23→20:58)
[2018-12-20] MEDS: PROPOFOL 1,000 MG/100 ML BOTTLE IV SCH ×2 (10:31→23:00)
[2018-12-20] MEDS ORDERED: SODIUM CHLORIDE 0.9% 250 ML IV PRN (12:51)
[2018-12-20] MEDS: VANCOMYCIN INJ 1,250 MG in SODIUM CHLORIDE 0.9% 250 ML IV SCH (16:54)
[2018-12-20] MEDS ORDERED: FUROSEMIDE 40 MG/4 ML VIAL IV ONE (18:25)
[2018-12-20] MEDS: SODIUM CHLORIDE 0.45% 1,000 ML IV SCH (18:53)
[2018-12-20] MEDS: DEXTROSE 50% 25 GM/50 ML SYRINGE IV PRN (20:36)
[2018-12-20] MEDS: BIMATOPROST 0.01% OPH SOLN 2.5 ML BOTTLE BOTH EYES SCH (20:58)
[2018-12-21] MEDS: fentaNYL INJ 2,500 MCG in SODIUM CHLORIDE 0.9% 450 ML IV PRN ×4 (00:15→16:04)
[2018-12-21] MEDS: INSULIN LISPRO 100 UNIT/ML SUBCUT SCH ×6 (00:37→20:49)
[2018-12-21] MEDS ORDERED: FUROSEMIDE 40 MG/4 ML VIAL IV ONE (01:00)
[2018-12-21 03:33] LABS: ABG Base Excess -5.4 MMOL/L (-2.5-2.5); ABG HCO3 19.9 MMOL/L (20-26); ABG Oxygen Saturation 95.7 % (95-100); ABG PCO2 37.3 MM HG (35-48); ABG PH 7.336 (7.35-7.45); ABG PO2 79.9 MM HG (80-95); ABG TCO2 18.2 MMOL/L (23-27); Allen Test Positive; Pt O2 Delivery Device Ventilator
[2018-12-21] MEDS: PROPOFOL 1,000 MG/100 ML BOTTLE IV SCH ×3 (05:00→19:00)
[2018-12-21] MEDS: PANTOPRAZOLE 40 MG VIAL IV SCH (08:39)
[2018-12-21] MEDS: INSULIN GLARGINE 100 UNIT/ML SUBCUT SCH ×2 (08:40→20:53)
[2018-12-21] MEDS: ENOXAPARIN 40 MG/0.4 ML SYRINGE SUBCUT SCH (08:41)
[2018-12-21] MEDS: ATORVASTATIN 80 MG TABLET PO SCH (08:43)
[2018-12-21] MEDS: OMEGA 3 ACID ETHYL ESTERS 1 GM CAPSULE PO SCH ×2 (08:43→20:54)
[2018-12-21] MEDS: METOPROLOL TARTRATE 25 MG TABLET PO SCH ×2 (08:44→20:54)
[2018-12-21] MEDS: ASPIRIN CHEW 81 MG TABLET PO SCH (08:44)
[2018-12-21] MEDS: AMIODARONE 200 MG TABLET PO SCH (08:44)
[2018-12-21 08:45] LABS: Basophils % 0.2 % (0.0-0.8); Eosinophils # 0.1 10*3/uL (0.0-0.87); Eosinophils % 0.9 % (0.00-10.9); Hematocrit 35.4 VOL% (42.0-52.0); Hemoglobin 10.5 GM/DL (14.0-18.0); Immature Granulocytes Absolute 0.13 #; Lymphocytes # 1.4 10*3/uL (1.4-4.0); Lymphocytes % 10.9 % (21.2-54.2); Mean Corpuscular HGB Conc 29.7 GM/DL (32-36); Mean Corpuscular Hemoglobin 29 PG (27-34); Mean Corpuscular Volume 98.9 FL (87-102); Mean Platelet Volume 9.7 FL (9.6-12.0); Monocytes # 0.7 10*3/uL (0.11-0.8); Monocytes % 5.2 % (1.7-12.7); NRBC # 0.02 10*3/uL; Neutrophils # 10.3 10*3/uL (1.4-7.4); Neutrophils % 81.8 % (38.7-73.9); Platelet Count 465 T/CUMM (130-400); Red Blood Count 3.58 MC/CUMM (3.8-5.5); White Blood Count 12.6 T/CUMM (4-12)
[2018-12-21] MEDS: BRIMONIDINE 0.15% OPH SOLN 1 DROP/DROPS BOTTLE BOTH EYES SCH ×2 (08:45→20:50)
[2018-12-21] MEDS: POLYVINYL ALCOHOL 1.4% OPH SOLN 15 ML BOTTLE BOTH EYES PRN ×2 (08:45→16:05)
[2018-12-21] MEDS: LEVOFLOXACIN INJ 750 MG in PREMIX 1 EACH IV SCH (08:55)
[2018-12-21] MEDS: MENTHOL/ZINC OXIDE OINT 71 GM JAR TOP SCH (09:11)
[2018-12-21] MEDS: DESITIN 4OZ/NYSTATIN 15 GRAM MIXTURE PASTE TOP SCH ×2 (09:11→20:55)
[2018-12-21 09:12] LABS: Calcium 7.6 MG/DL (8.5-10.1); Osmolality,Calculated 293.7 MOS/KG (273-304); Potassium 4.2 MMOL/L (3.5-5.1)
[2018-12-21 09:18] LABS: Anisocytosis 1+; Band Neutrophils 14 % (0-10); Lymphocytes 8 % (20-55); Nucleated Red Blood Cells 1 (0-5); Platelet Estimate Normal; Polychromasia Slight; Segmented Neutrophils 71 % (50-85); Total Cells Counted 100
[2018-12-21] MEDS: POLYVINYL ALCOHOL 1.4% OPH SOLN 15 ML BOTTLE BOTH EYES SCH ×3 (10:58→20:51)
[2018-12-21] MEDS: FUROSEMIDE 40 MG/4 ML VIAL IV SCH ×2 (12:17→16:20)
[2018-12-21] MEDS: VANCOMYCIN INJ 1,250 MG in SODIUM CHLORIDE 0.9% 250 ML IV SCH (16:21)
[2018-12-21] MEDS: BIMATOPROST 0.01% OPH SOLN 2.5 ML BOTTLE BOTH EYES SCH (20:51)
[2018-12-21] MEDS: ACETAMINOPHEN 325 MG/10.15 ML UDCUP PO PRN (20:57)
[2018-12-21] MEDS: VANCOMYCIN INJ 1,000 MG in SODIUM CHLORIDE 0.9% 250 ML IV SCH (21:09)
[2018-12-22] MEDS: INSULIN LISPRO 100 UNIT/ML SUBCUT SCH ×6 (00:18→20:40)
[2018-12-22] MEDS: fentaNYL INJ 2,500 MCG in SODIUM CHLORIDE 0.9% 450 ML IV PRN ×2 (00:48→14:04)
[2018-12-22] MEDS: SODIUM CHLORIDE 0.45% 1,000 ML IV SCH (00:49)
[2018-12-22] MEDS: PROPOFOL 1,000 MG/100 ML BOTTLE IV SCH ×5 (03:40→21:46)
[2018-12-22 04:17] LABS: Basophils % 0.1 % (0.0-0.8); Eosinophils # 0.1 10*3/uL (0.0-0.87); Eosinophils % 0.9 % (0.00-10.9); Hematocrit 31.3 VOL% (42.0-52.0); Hemoglobin 9.2 GM/DL (14.0-18.0); Immature Granulocytes Absolute 0.09 #; Lymphocytes # 1.3 10*3/uL (1.4-4.0); Lymphocytes % 13.8 % (21.2-54.2); Mean Corpuscular HGB Conc 29.4 GM/DL (32-36); Mean Corpuscular Hemoglobin 29 PG (27-34); Mean Corpuscular Volume 98.4 FL (87-102); Mean Platelet Volume 10.4 FL (9.6-12.0); Monocytes # 0.5 10*3/uL (0.11-0.8); Monocytes % 5.3 % (1.7-12.7); NRBC # 0.02 10*3/uL; Neutrophils # 7.4 10*3/uL (1.4-7.4); Neutrophils % 78.9 % (38.7-73.9); Platelet Count 343 T/CUMM (130-400); Red Blood Count 3.18 MC/CUMM (3.8-5.5); Red Cell Distribution Width 16.7 % (9.3-17.3); White Blood Count 9.4 T/CUMM (4-12)
[2018-12-22 04:37] LABS: Calcium 8.1 MG/DL (8.5-10.1); Osmolality,Calculated 295.6 MOS/KG (273-304); Potassium 3.9 MMOL/L (3.5-5.1)
[2018-12-22 04:45] LABS: Anisocytosis 1+; Platelet Estimate Normal
[2018-12-22 04:48] LABS: Prealbumin 13.3 MG/DL (20-40)
[2018-12-22 04:58] LABS: ABG Base Excess -3.5 MMOL/L (-2.5-2.5); ABG HCO3 21.2 MMOL/L (20-26); ABG Oxygen Saturation 77.8 % (95-100); ABG PCO2 31.4 MM HG (35-48); ABG PH 7.418 (7.35-7.45); ABG PO2 41.8 MM HG (80-95); ABG TCO2 18.5 MMOL/L (23-27); Allen Test Positive; Pt O2 Delivery Device Ventilator
[2018-12-22] MEDS: ATORVASTATIN 80 MG TABLET PO SCH (08:34)
[2018-12-22] MEDS: LEVOFLOXACIN INJ 750 MG in PREMIX 1 EACH IV SCH (08:34)
[2018-12-22] MEDS: ENOXAPARIN 40 MG/0.4 ML SYRINGE SUBCUT SCH (08:35)
[2018-12-22] MEDS: OMEGA 3 ACID ETHYL ESTERS 1 GM CAPSULE PO SCH ×2 (08:35→22:04)
[2018-12-22] MEDS: PANTOPRAZOLE 40 MG VIAL IV SCH (08:35)
[2018-12-22] MEDS: ASPIRIN CHEW 81 MG TABLET PO SCH (08:35)
[2018-12-22] MEDS: INSULIN GLARGINE 100 UNIT/ML SUBCUT SCH ×2 (08:40→21:56)
[2018-12-22] MEDS: METOPROLOL TARTRATE 25 MG TABLET PO SCH ×2 (08:40→20:53)
[2018-12-22] MEDS: POLYVINYL ALCOHOL 1.4% OPH SOLN 15 ML BOTTLE BOTH EYES SCH ×3 (08:41→21:57)
[2018-12-22] MEDS: AMIODARONE 200 MG TABLET PO SCH (08:42)
[2018-12-22] MEDS: BRIMONIDINE 0.15% OPH SOLN 1 DROP/DROPS BOTTLE BOTH EYES SCH ×2 (08:43→21:54)
[2018-12-22] MEDS: FUROSEMIDE 40 MG/4 ML VIAL IV SCH ×2 (09:24→16:12)
[2018-12-22] MEDS: DESITIN 4OZ/NYSTATIN 15 GRAM MIXTURE PASTE TOP SCH ×2 (09:28→21:58)
[2018-12-22] MEDS ORDERED: GLUCAGON 1 MG VIAL IM PRN (11:34)
[2018-12-22] MEDS ORDERED: DEXTROSE 50% 25 GM/50 ML VIAL IV PRN (11:34)
[2018-12-22] MEDS: BIMATOPROST 0.01% OPH SOLN 2.5 ML BOTTLE BOTH EYES SCH (21:54)
[2018-12-22] MEDS: DEXTROSE 50% 25 GM/50 ML SYRINGE IV PRN (21:54)
[2018-12-22] MEDS: VANCOMYCIN INJ 1,000 MG in SODIUM CHLORIDE 0.9% 250 ML IV SCH (21:55)
[2018-12-22] MEDS: POLYVINYL ALCOHOL 1.4% OPH SOLN 15 ML BOTTLE BOTH EYES PRN (21:57)
[2018-12-23] MEDS: INSULIN LISPRO 100 UNIT/ML SUBCUT SCH ×4 (00:41→13:03)
[2018-12-23] MEDS: fentaNYL INJ 2,500 MCG in SODIUM CHLORIDE 0.9% 450 ML IV PRN (02:27)
[2018-12-23 04:16] LABS: ABG Base Excess -0.8 MMOL/L (-2.5-2.5); ABG HCO3 23.7 MMOL/L (20-26); ABG Oxygen Saturation 92.8 % (95-100); ABG PCO2 34.5 MM HG (35-48); ABG PO2 64.9 MM HG (80-95); ABG TCO2 19.9 MMOL/L (23-27)
[2018-12-23 04:17] LABS: Allen Test Positive; Pt O2 Delivery Device Ventilator
[2018-12-23 04:55] LABS: Basophils % 0.2 % (0.0-0.8); Eosinophils # 0.1 10*3/uL (0.0-0.87); Eosinophils % 0.9 % (0.00-10.9); Hematocrit 30.5 VOL% (42.0-52.0); Hemoglobin 9.2 GM/DL (14.0-18.0); Immature Granulocytes % 0.9 %; Lymphocytes # 1.4 10*3/uL (1.4-4.0); Lymphocytes % 11.7 % (21.2-54.2); Mean Corpuscular HGB Conc 30.2 GM/DL (32-36); Mean Corpuscular Hemoglobin 29 PG (27-34); Mean Corpuscular Volume 97.1 FL (87-102); Mean Platelet Volume 9.5 FL (9.6-12.0); Monocytes # 0.6 10*3/uL (0.11-0.8); Monocytes % 5.3 % (1.7-12.7); Neutrophils # 9.4 10*3/uL (1.4-7.4); Platelet Count 462 T/CUMM (130-400); Red Blood Count 3.14 MC/CUMM (3.8-5.5); Red Cell Distribution Width 16.2 % (9.3-17.3); White Blood Count 11.6 T/CUMM (4-12)
[2018-12-23 04:57] LABS: Osmolality,Calculated 298.4 MOS/KG (273-304); Potassium 3.5 MMOL/L (3.5-5.1)
[2018-12-23] MEDS: PROPOFOL 1,000 MG/100 ML BOTTLE IV SCH (05:30)
[2018-12-23 06:06] VITALS: BP 92/63
[2018-12-23 06:15] LABS: Anisocytosis 1+; Eosinophils 2 % (0-10); Lymphocytes 16 % (20-55); Macrocytosis 1+; Platelet Estimate Increased; Segmented Neutrophils 74 % (50-85); Total Cells Counted 100
[2018-12-23] MEDS ORDERED: MULTIVITAMIN LIQUID (CENTRUM) 60 ML BOTTLE PO SCH (09:00)
[2018-12-23] MEDS: LEVOFLOXACIN INJ 750 MG in PREMIX 1 EACH IV SCH (09:27)
[2018-12-23] MEDS: OMEGA 3 ACID ETHYL ESTERS 1 GM CAPSULE PO SCH (09:28)
[2018-12-23] MEDS: ENOXAPARIN 40 MG/0.4 ML SYRINGE SUBCUT SCH (09:28)
[2018-12-23] MEDS: ASPIRIN CHEW 81 MG TABLET PO SCH (09:29)
[2018-12-23] MEDS: AMIODARONE 200 MG TABLET PO SCH (09:29)
[2018-12-23] MEDS: POLYVINYL ALCOHOL 1.4% OPH SOLN 15 ML BOTTLE BOTH EYES PRN (09:29)
[2018-12-23] MEDS: ATORVASTATIN 80 MG TABLET PO SCH (09:29)
[2018-12-23] MEDS: BRIMONIDINE 0.15% OPH SOLN 1 DROP/DROPS BOTTLE BOTH EYES SCH (09:29)
[2018-12-23] MEDS: DESITIN 4OZ/NYSTATIN 15 GRAM MIXTURE PASTE TOP SCH (09:30)
[2018-12-23] MEDS: PANTOPRAZOLE 40 MG VIAL IV SCH (09:31)
[2018-12-23] MEDS: FUROSEMIDE 40 MG/4 ML VIAL IV SCH (09:33)
[2018-12-23] MEDS: POLYVINYL ALCOHOL 1.4% OPH SOLN 15 ML BOTTLE BOTH EYES SCH (09:38)
[2018-12-23] MEDS: INSULIN GLARGINE 100 UNIT/ML SUBCUT SCH (09:39)
[2018-12-23] MEDS: METOPROLOL TARTRATE 25 MG TABLET PO SCH (09:40)
== END 2018-12-23 12:18 | DRG 207 ==
LOC: EDUNIT# → EDBD → N.ED 23:14 → N.ICU 12-11 01:10 → SUATTDRO 12-11 02:17 → N.EDINP 12-11 02:17 → N.ICU 12-11 02:44
PROVIDERS: ADMIT Internal Medicine Cardiovascular Disease; ATTEND Internal Medicine Cardiovascular Disease
PROC: CLCCHCL (ICD-10-PCS; 2018-12-11 01:45)

== ENCOUNTER 2019-02-04 11:12 | Inpatient (IN) ==
[2019-02-04] MEDS ORDERED: SODIUM CHLORIDE 0.9% 500 ML IV STA (11:37)
[2019-02-04] MEDS ORDERED: VANCOMYCIN INJ 1,000 MG in SODIUM CHLORIDE 0.9% 250 ML IV STA (11:39)
[2019-02-04] MEDS ORDERED: MEROPENEM 1,000 MG in SODIUM CHLORIDE 0.9% 100 ML IV STA (11:39)
[2019-02-04 11:56] LABS: Albumin 3.3 G/DL (3.4-5.0); Bilirubin,Total 0.9 MG/DL (0.2-1.0); Calcium 9.6 MG/DL (8.5-10.1); Osmolality,Calculated 343.4 MOS/KG (273-304); Total Protein 8.9 G/DL (6.4-8.3)
[2019-02-04 12:04] LABS: ABG Base Excess 4.3 MMOL/L (-2.5-2.5); ABG HCO3 26.9 MMOL/L (20-26); ABG Oxygen Saturation 98.2 % (95-100); ABG PH 7.516 (7.35-7.45); ABG TCO2 27.9 MMOL/L (23-27); Allen Test Positive
[2019-02-04] MEDS ORDERED: SODIUM CHLORIDE 0.9% 1,000 ML IV STA (12:24)
[2019-02-04] MEDS ORDERED: MEROPENEM 1,000 MG VIAL IV ONE (12:24)
[2019-02-04 12:27] LABS: Basophils % 0.2 % (0.0-0.8); Immature Granulocytes % 0.6 %; Immature Granulocytes Absolute 0.11 #; Lymphocytes # 2.3 10*3/uL (1.4-4.0); Lymphocytes % 12.4 % (21.2-54.2); Mean Corpuscular HGB Conc 29.4 GM/DL (32-36); Mean Corpuscular Volume 96.3 FL (87-102); Mean Platelet Volume 11.2 FL (9.6-12.0); Monocytes % 7.4 % (1.7-12.7); Neutrophils % 79.4 % (38.7-73.9); Platelet Count 304 T/CUMM (130-400); Red Blood Count 4.88 MC/CUMM (3.8-5.5); Red Cell Distribution Width 16.6 % (9.3-17.3); White Blood Count 18.4 T/CUMM (4-12)
[2019-02-04 12:34] LABS: Hemoglobin 13.8 GM/DL (14.0-18.0)
[2019-02-04] MEDS ORDERED: INSULIN LISPRO 100 UNIT/ML SUBCUT STA (12:44)
[2019-02-04 12:47] LABS: Hypochromasia 1+; Platelet Estimate Normal
[2019-02-04 13:28] LABS: Apearance,Urine CLOUDY (Clear); Bacteria,Urine Many /HPF (Few); Bilirubin,Urine Negative (Negative); Blood, Urine Small mg/dL (Negative); Glucose,Urine (UA) >=500 mg/dL (Negative); Ketones,Urine Negative (Negative); Mucus,Urine Occasional /LPF (Occasional); Nitrite,Urine Negative (Negative); Protein,Urine 100 MG/DL; Squamous Epithelial Cell,Urine Occasional /HPF (0-10); Urine Color Yellow (Yellow); Urine Specific Gravity 1.022 (1.001-1.035); Urine Urobilinogen < 2.0 EU/DL (0.2-1.0); WBC,Urine 4094 /HPF (0-6)
[2019-02-04] MEDS ORDERED: ALBUTEROL 2.5 MG/3 ML NEB RESP TX PRN (13:59)
[2019-02-04] MEDS ORDERED: ACETAMINOPHEN 325 MG TABLET PO PRN (14:05)
[2019-02-04] MEDS ORDERED: ONDANSETRON 4 MG/2 ML VIAL IV PRN (14:05)
[2019-02-04] MEDS ORDERED: NOREPINEPHRINE 8 MG in SODIUM CHLORIDE 0.9% 242 ML IV PRN (14:11)
[2019-02-04] MEDS ORDERED: INSULIN REGULAR DRIP 100 ML IV PRN (15:30)
[2019-02-04] MEDS: ALBUTEROL/IPRATROPIUM 3 ML NEB RESP TX SCH ×2 (15:35→19:56)
[2019-02-04] MEDS: ENOXAPARIN 30 MG/0.3 ML SYRINGE SUBCUT SCH (15:41)
[2019-02-04] MEDS: SODIUM CHLORIDE 0.9% 1,000 ML IV SCH (15:41)
[2019-02-04] MEDS: PANTOPRAZOLE 40 MG VIAL IV SCH (15:42)
[2019-02-04] MEDS: LINEZOLID INJ 600 MG in PREMIX 1 EACH IV SCH (17:28)
[2019-02-04] MEDS: NYSTATIN 500,000 UNIT/5 ML UDCUP PO SCH ×2 (17:28→20:04)
[2019-02-04 17:49] LABS: Apearance,Urine CLOUDY (Clear); Bacteria,Urine Many /HPF (Few); Bilirubin,Urine Negative (Negative); Blood, Urine Large mg/dL (Negative); Glucose,Urine (UA) >=500 mg/dL (Negative); Ketones,Urine Negative (Negative); Nitrite,Urine Negative (Negative); Protein,Urine 30 MG/DL; RBC,Urine 86 /HPF (0-4); Urine Color Amber (Yellow); Urine Specific Gravity 1.014 (1.001-1.035); Urine Urobilinogen < 2.0 EU/DL (0.2-1.0); WBC,Urine 1210 /HPF (0-6)
[2019-02-04] MEDS: BRIMONIDINE 0.15% OPH SOLN 1 DROP/DROPS BOTTLE BOTH EYES SCH (18:16)
[2019-02-04] MEDS: LATANOPROST 0.005% OPH SOLN 2.5 ML BOTTLE BOTH EYES SCH (18:16)
[2019-02-04] MEDS: TIMOLOL 0.5% OPH SOLN 5 ML BOTTLE BOTH EYES SCH (20:04)
[2019-02-04] MEDS ORDERED: GLUCAGON 1 MG VIAL IM PRN (23:02)
[2019-02-04] MEDS ORDERED: DEXTROSE 50% 25 GM/50 ML SYRINGE IV PRN (23:02)
[2019-02-05] MEDS: MEROPENEM 1,000 MG in SODIUM CHLORIDE 0.9% 100 ML IV SCH ×2 (00:24→13:47)
[2019-02-05] MEDS: INSULIN REGULAR 100 UNIT/ML SUBCUT SCH ×6 (00:24→20:09)
[2019-02-05] MEDS: ALBUTEROL/IPRATROPIUM 3 ML NEB RESP TX SCH ×7 (00:26→23:45)
[2019-02-05] MEDS: SODIUM CHLORIDE 0.9% 1,000 ML IV SCH ×2 (01:41→11:28)
[2019-02-05 04:56] LABS: Calcium 8.6 MG/DL (8.5-10.1); Osmolality,Calculated 328.2 MOS/KG (273-304); Risk Ratio 2.72; Thyroid Stimulating Hormone 2.92 uIU/ml (0.358-3.74); VLDL CHOLESTEROL 29.2 MG/DL
[2019-02-05 05:08] LABS: Basophils % 0.2 % (0.0-0.8); Eosinophils % 0.1 % (0.00-10.9); Hematocrit 37.4 VOL% (42.0-52.0); Immature Granulocytes % 0.3 %; Immature Granulocytes Absolute 0.04 #; Mean Corpuscular HGB Conc 29.4 GM/DL (32-36); Mean Corpuscular Volume 97.4 FL (87-102); Mean Platelet Volume 11.1 FL (9.6-12.0); Monocytes % 7.5 % (1.7-12.7); Neutrophils % 70.9 % (38.7-73.9); Red Cell Distribution Width 16.5 % (9.3-17.3); White Blood Count 14.1 T/CUMM (4-12)
[2019-02-05 05:09] LABS: Platelet Count 222 T/CUMM (130-400); Red Blood Count 3.84 MC/CUMM (3.8-5.5)
[2019-02-05] MEDS: LINEZOLID INJ 600 MG in PREMIX 1 EACH IV SCH ×2 (05:54→17:35)
[2019-02-05] MEDS: NYSTATIN 500,000 UNIT/5 ML UDCUP PO SCH ×4 (09:30→20:10)
[2019-02-05] MEDS: MULTIVITAMIN LIQUID (CENTRUM) 60 ML BOTTLE PEG SCH (09:31)
[2019-02-05] MEDS: BRIMONIDINE 0.15% OPH SOLN 1 DROP/DROPS BOTTLE BOTH EYES SCH ×2 (09:31→20:06)
[2019-02-05] MEDS: TIMOLOL 0.5% OPH SOLN 5 ML BOTTLE BOTH EYES SCH ×2 (09:31→20:10)
[2019-02-05] MEDS: ASPIRIN CHEW 81 MG TABLET PO SCH (09:31)
[2019-02-05] MEDS: ASCORBIC ACID 500 MG TABLET PEG SCH (09:31)
[2019-02-05] MEDS: AMIODARONE 200 MG TABLET PEG SCH (09:31)
[2019-02-05 11:45] LABS: ABG Base Excess 3.9 MMOL/L (-2.5-2.5); ABG HCO3 27.8 MMOL/L (20-26); ABG Oxygen Saturation 93.5 % (95-100); ABG PCO2 40.6 MM HG (35-48); ABG PO2 65.8 MM HG (80-95); ABG TCO2 24.8 MMOL/L (23-27); Allen Test Positive
[2019-02-05] MEDS: ENOXAPARIN 30 MG/0.3 ML SYRINGE SUBCUT SCH (13:48)
[2019-02-05] MEDS: PANTOPRAZOLE 40 MG VIAL IV SCH (13:48)
[2019-02-05] MEDS: LATANOPROST 0.005% OPH SOLN 2.5 ML BOTTLE BOTH EYES SCH (20:06)
[2019-02-06] MEDS: INSULIN REGULAR 100 UNIT/ML SUBCUT SCH ×6 (02:03→20:43)
[2019-02-06] MEDS: MEROPENEM 1,000 MG in SODIUM CHLORIDE 0.9% 100 ML IV SCH ×2 (02:03→12:55)
[2019-02-06] MEDS: ALBUTEROL/IPRATROPIUM 3 ML NEB RESP TX SCH ×6 (03:17→23:37)
[2019-02-06 04:08] LABS: Basophils % 0.2 % (0.0-0.8); Eosinophils # 0.1 10*3/uL (0.0-0.87); Eosinophils % 0.9 % (0.00-10.9); Hematocrit 41.4 VOL% (42.0-52.0); Hemoglobin 11.5 GM/DL (14.0-18.0); Immature Granulocytes % 0.4 %; Immature Granulocytes Absolute 0.04 #; Lymphocytes # 2.8 10*3/uL (1.4-4.0); Lymphocytes % 28.1 % (21.2-54.2); Mean Corpuscular HGB Conc 27.8 GM/DL (32-36); Monocytes % 6.3 % (1.7-12.7); Neutrophils % 64.1 % (38.7-73.9); Platelet Count 187 T/CUMM (130-400); Red Blood Count 4.06 MC/CUMM (3.8-5.5); Red Cell Distribution Width 16.1 % (9.3-17.3); White Blood Count 9.8 T/CUMM (4-12)
[2019-02-06 04:28] LABS: Calcium 8.8 MG/DL (8.5-10.1); Osmolality,Calculated 319.4 MOS/KG (273-304)
[2019-02-06 04:56] LABS: Anisocytosis 1+; Hypochromasia 1+; Microcytosis 1+; Platelet Estimate Normal
[2019-02-06 06:06] LABS: ABG Base Excess 2.7 MMOL/L (-2.5-2.5); ABG HCO3 26.1 MMOL/L (20-26); ABG Oxygen Saturation 94.5 % (95-100); ABG PCO2 35.7 MM HG (35-48); ABG PH 7.482 (7.35-7.45); ABG PO2 72.7 MM HG (80-95); ABG TCO2 27.2 MMOL/L (23-27)
[2019-02-06] MEDS: LINEZOLID INJ 600 MG in PREMIX 1 EACH IV SCH ×2 (06:56→17:18)
[2019-02-06] MEDS: AMIODARONE 200 MG TABLET PEG SCH (09:57)
[2019-02-06] MEDS: ASCORBIC ACID 500 MG TABLET PEG SCH (09:57)
[2019-02-06] MEDS: ASPIRIN CHEW 81 MG TABLET PO SCH (09:57)
[2019-02-06] MEDS: NYSTATIN 500,000 UNIT/5 ML UDCUP PO SCH ×4 (09:59→20:44)
[2019-02-06] MEDS: TIMOLOL 0.5% OPH SOLN 5 ML BOTTLE BOTH EYES SCH ×2 (10:06→20:44)
[2019-02-06] MEDS: BRIMONIDINE 0.15% OPH SOLN 1 DROP/DROPS BOTTLE BOTH EYES SCH ×2 (10:06→18:26)
[2019-02-06] MEDS: MULTIVITAMIN LIQUID (CENTRUM) 60 ML BOTTLE PEG SCH (10:10)
[2019-02-06] MEDS: DESITIN 4OZ/NYSTATIN 15 GRAM MIXTURE PASTE TOP SCH ×2 (12:55→21:32)
[2019-02-06] MEDS: PANTOPRAZOLE 40 MG VIAL IV SCH (16:14)
[2019-02-06] MEDS: ENOXAPARIN 30 MG/0.3 ML SYRINGE SUBCUT SCH (16:14)
[2019-02-06] MEDS: DEXTROSE 5% 1,000 ML IV SCH (17:07)
[2019-02-06] MEDS: LATANOPROST 0.005% OPH SOLN 2.5 ML BOTTLE BOTH EYES SCH (18:26)
[2019-02-07] MEDS: MEROPENEM 1,000 MG in SODIUM CHLORIDE 0.9% 100 ML IV SCH ×2 (01:03→13:29)
[2019-02-07] MEDS: INSULIN REGULAR 100 UNIT/ML SUBCUT SCH ×4 (01:03→13:29)
[2019-02-07] MEDS: ALBUTEROL/IPRATROPIUM 3 ML NEB RESP TX SCH ×4 (02:01→14:44)
[2019-02-07] MEDS: LINEZOLID INJ 600 MG in PREMIX 1 EACH IV SCH ×2 (05:05→18:30)
[2019-02-07 06:00] LABS: Calcium 8.4 MG/DL (8.5-10.1); Osmolality,Calculated 302.4 MOS/KG (273-304)
[2019-02-07 06:16] LABS: Prealbumin 16.7 MG/DL (20-40)
[2019-02-07] MEDS: DEXTROSE 5% 1,000 ML IV SCH ×2 (06:25→21:19)
[2019-02-07] MEDS: AMIODARONE 200 MG TABLET PEG SCH (09:39)
[2019-02-07] MEDS: NYSTATIN 500,000 UNIT/5 ML UDCUP PO SCH ×4 (09:39→21:18)
[2019-02-07] MEDS: MULTIVITAMIN LIQUID (CENTRUM) 60 ML BOTTLE PEG SCH (09:40)
[2019-02-07] MEDS: ASPIRIN CHEW 81 MG TABLET PO SCH (09:40)
[2019-02-07] MEDS: ASCORBIC ACID 500 MG TABLET PEG SCH (09:40)
[2019-02-07] MEDS: BRIMONIDINE 0.15% OPH SOLN 1 DROP/DROPS BOTTLE BOTH EYES SCH ×3 (09:41→21:29)
[2019-02-07] MEDS: TIMOLOL 0.5% OPH SOLN 5 ML BOTTLE BOTH EYES SCH ×2 (09:41→21:28)
[2019-02-07] MEDS: DESITIN 4OZ/NYSTATIN 15 GRAM MIXTURE PASTE TOP SCH ×2 (09:41→21:19)
[2019-02-07] MEDS ORDERED: ACETAMINOPHEN 325 MG TABLET PEG PRN (11:53)
[2019-02-07] MEDS ORDERED: ACETAMINOPHEN 640 MG PO PRN (11:53)
[2019-02-07] MEDS ORDERED: ALBUTEROL/IPRATROPIUM 3 ML NEB RESP TX PRN (13:00)
[2019-02-07] MEDS: INSULIN LISPRO 100 UNIT/ML SUBCUT SCH ×2 (13:23→18:25)
[2019-02-07] MEDS: ENOXAPARIN 30 MG/0.3 ML SYRINGE SUBCUT SCH (15:00)
[2019-02-07] MEDS: POTASSIUM PHOS/SOD PHOS POWDER 250 MG PACK PO SCH ×2 (15:59→21:19)
[2019-02-07] MEDS: METOPROLOL TARTRATE 50 MG TABLET PEG SCH (17:24)
[2019-02-07] MEDS: INSULIN GLARGINE 100 UNIT/ML SUBCUT SCH (18:20)
[2019-02-07] MEDS: LATANOPROST 0.005% OPH SOLN 2.5 ML BOTTLE BOTH EYES SCH ×2 (21:19→21:29)
[2019-02-07] MEDS: POLYVINYL ALCOHOL 1.4% OPH SOLN 15 ML BOTTLE BOTH EYES PRN (21:19)
[2019-02-08] MEDS: MEROPENEM 1,000 MG in SODIUM CHLORIDE 0.9% 100 ML IV SCH ×3 (01:18→18:02)
[2019-02-08 06:01] LABS: Calcium 7.8 MG/DL (8.5-10.1); Osmolality,Calculated 286.4 MOS/KG (273-304)
[2019-02-08] MEDS: INSULIN LISPRO 100 UNIT/ML SUBCUT SCH ×4 (06:27→18:03)
[2019-02-08] MEDS: INSULIN GLARGINE 100 UNIT/ML SUBCUT SCH ×2 (06:27→22:48)
[2019-02-08] MEDS: LINEZOLID INJ 600 MG in PREMIX 1 EACH IV SCH (06:30)
[2019-02-08] MEDS: LANSOPRAZOLE ODT 30 MG TABLET PEG SCH (09:29)
[2019-02-08] MEDS: AMIODARONE 200 MG TABLET PEG SCH (09:29)
[2019-02-08] MEDS: ASPIRIN CHEW 81 MG TABLET PO SCH (09:29)
[2019-02-08] MEDS: METOPROLOL TARTRATE 50 MG TABLET PEG SCH ×2 (09:30→18:05)
[2019-02-08] MEDS: NYSTATIN 500,000 UNIT/5 ML UDCUP PO SCH ×4 (09:30→22:50)
[2019-02-08] MEDS: POTASSIUM CHLORIDE 20 MEQ PACK PEG SCH (09:30)
[2019-02-08] MEDS: TIMOLOL 0.5% OPH SOLN 5 ML BOTTLE BOTH EYES SCH ×2 (09:31→22:51)
[2019-02-08] MEDS: ENOXAPARIN 40 MG/0.4 ML SYRINGE SUBCUT SCH (09:33)
[2019-02-08] MEDS: FUROSEMIDE 40 MG/5 ML UDCUP PEG SCH (11:04)
[2019-02-08] MEDS: ASCORBIC ACID 500 MG TABLET PEG SCH (12:15)
[2019-02-08] MEDS: DESITIN 4OZ/NYSTATIN 15 GRAM MIXTURE PASTE TOP SCH ×2 (12:23→22:50)
[2019-02-08] MEDS: BRIMONIDINE 0.15% OPH SOLN 1 DROP/DROPS BOTTLE BOTH EYES SCH ×2 (12:24→22:51)
[2019-02-08] MEDS: POTASSIUM PHOS/SOD PHOS POWDER 250 MG PACK PO SCH ×3 (15:18→22:50)
[2019-02-08] MEDS: MULTIVITAMIN LIQUID (CENTRUM) 60 ML BOTTLE PEG SCH (15:57)
[2019-02-08] MEDS: LATANOPROST 0.005% OPH SOLN 2.5 ML BOTTLE BOTH EYES SCH (22:52)
[2019-02-09] MEDS: MEROPENEM 1,000 MG in SODIUM CHLORIDE 0.9% 100 ML IV SCH ×3 (01:09→16:35)
[2019-02-09] MEDS: INSULIN LISPRO 100 UNIT/ML SUBCUT SCH ×4 (01:10→17:50)
[2019-02-09 06:08] LABS: Calcium 8.2 MG/DL (8.5-10.1); Osmolality,Calculated 290.1 MOS/KG (273-304); Prealbumin 17.9 MG/DL (20-40)
[2019-02-09] MEDS: INSULIN GLARGINE 100 UNIT/ML SUBCUT SCH ×2 (09:45→21:58)
[2019-02-09] MEDS: FUROSEMIDE 40 MG/5 ML UDCUP PEG SCH (09:45)
[2019-02-09] MEDS: NYSTATIN 500,000 UNIT/5 ML UDCUP PO SCH ×2 (09:46→13:23)
[2019-02-09] MEDS: POTASSIUM CHLORIDE 20 MEQ PACK PEG SCH (09:46)
[2019-02-09] MEDS: LANSOPRAZOLE ODT 30 MG TABLET PEG SCH (09:46)
[2019-02-09] MEDS: ASPIRIN CHEW 81 MG TABLET PO SCH (09:46)
[2019-02-09] MEDS: ASCORBIC ACID 500 MG TABLET PEG SCH (09:47)
[2019-02-09] MEDS: MULTIVITAMIN LIQUID (CENTRUM) 60 ML BOTTLE PEG SCH (09:48)
[2019-02-09] MEDS: DESITIN 4OZ/NYSTATIN 15 GRAM MIXTURE PASTE TOP SCH ×2 (09:48→21:10)
[2019-02-09] MEDS: POLYVINYL ALCOHOL 1.4% OPH SOLN 15 ML BOTTLE BOTH EYES PRN ×2 (09:49→21:58)
[2019-02-09] MEDS: BRIMONIDINE 0.15% OPH SOLN 1 DROP/DROPS BOTTLE BOTH EYES SCH ×2 (09:49→21:58)
[2019-02-09] MEDS: POTASSIUM PHOS/SOD PHOS POWDER 250 MG PACK PO SCH ×3 (09:54→21:57)
[2019-02-09] MEDS: ENOXAPARIN 40 MG/0.4 ML SYRINGE SUBCUT SCH (09:55)
[2019-02-09] MEDS: AMIODARONE 200 MG TABLET PEG SCH (10:03)
[2019-02-09] MEDS: METOPROLOL TARTRATE 50 MG TABLET PEG SCH ×2 (10:03→16:34)
[2019-02-09] MEDS: TIMOLOL 0.5% OPH SOLN 5 ML BOTTLE BOTH EYES SCH ×2 (13:19→21:58)
[2019-02-09] MEDS: LATANOPROST 0.005% OPH SOLN 2.5 ML BOTTLE BOTH EYES SCH (21:10)
[2019-02-10] MEDS: INSULIN LISPRO 100 UNIT/ML SUBCUT SCH ×2 (00:18→06:19)
[2019-02-10] MEDS: MEROPENEM 1,000 MG in SODIUM CHLORIDE 0.9% 100 ML IV SCH (00:48)
[2019-02-10] MEDS ORDERED: ERTAPENEM 1,000 MG in SODIUM CHLORIDE 0.9% 100 ML IV ONE (09:00)
[2019-02-10] MEDS: MULTIVITAMIN LIQUID (CENTRUM) 60 ML BOTTLE PEG SCH (09:03)
[2019-02-10] MEDS: POTASSIUM CHLORIDE 20 MEQ PACK PEG SCH (09:04)
[2019-02-10] MEDS: INSULIN GLARGINE 100 UNIT/ML SUBCUT SCH (09:04)
[2019-02-10] MEDS: ENOXAPARIN 40 MG/0.4 ML SYRINGE SUBCUT SCH (09:04)
[2019-02-10] MEDS: LANSOPRAZOLE ODT 30 MG TABLET PEG SCH (09:05)
[2019-02-10] MEDS: METOPROLOL TARTRATE 50 MG TABLET PEG SCH (09:05)
[2019-02-10] MEDS: AMIODARONE 200 MG TABLET PEG SCH (09:05)
[2019-02-10] MEDS: POTASSIUM PHOS/SOD PHOS POWDER 250 MG PACK PO SCH (09:05)
[2019-02-10] MEDS: ASPIRIN CHEW 81 MG TABLET PO SCH (09:05)
[2019-02-10] MEDS: ASCORBIC ACID 500 MG TABLET PEG SCH (09:05)
[2019-02-10] MEDS: FUROSEMIDE 40 MG/5 ML UDCUP PEG SCH (09:05)
[2019-02-10] MEDS: POLYVINYL ALCOHOL 1.4% OPH SOLN 15 ML BOTTLE BOTH EYES PRN (09:06)
[2019-02-10] MEDS: BRIMONIDINE 0.15% OPH SOLN 1 DROP/DROPS BOTTLE BOTH EYES SCH (09:06)
[2019-02-10] MEDS: TIMOLOL 0.5% OPH SOLN 5 ML BOTTLE BOTH EYES SCH (09:06)
[2019-02-10] MEDS: DESITIN 4OZ/NYSTATIN 15 GRAM MIXTURE PASTE TOP SCH (09:07)
[2019-02-10 11:30] VITALS: BP 124/59
== END 2019-02-10 12:35 | DRG 698 ==
LOC: EDBD → EDUNIT# → N.ED 11:12 → SUATTDRO 14:00 → N.EDINP 14:37 → N.CC 14:48 → N.2E 02-08 00:51
PROVIDERS: ADMIT Internal Medicine; ATTEND Internal Medicine

== ENCOUNTER 2019-02-17 10:03 | Inpatient (IN) ==
[2019-02-17] MEDS ORDERED: ALBUTEROL/IPRATROPIUM 3 ML NEB RESP TX STA (10:27)
[2019-02-17] MEDS ORDERED: FUROSEMIDE 40 MG/4 ML VIAL IV STA (10:28)
[2019-02-17 10:38] LABS: Basophils # 0.1 10*3/uL (0.0-0.2); Basophils % 0.5 % (0.0-0.8); Eosinophils # 0.5 10*3/uL (0.0-0.87); Eosinophils % 4.2 % (0.00-10.9); Hematocrit 38.1 VOL% (42.0-52.0); Hemoglobin 11.7 GM/DL (14.0-18.0); Immature Granulocytes % 0.4 %; Immature Granulocytes Absolute 0.05 #; Lymphocytes # 3.9 10*3/uL (1.4-4.0); Lymphocytes % 32.4 % (21.2-54.2); Mean Corpuscular HGB Conc 30.7 GM/DL (32-36); Mean Corpuscular Volume 94.3 FL (87-102); Mean Platelet Volume 9.5 FL (9.6-12.0); Monocytes % 4.5 % (1.7-12.7); Platelet Count 525 T/CUMM (130-400); Red Blood Count 4.04 MC/CUMM (3.8-5.5); Red Cell Distribution Width 16.7 % (9.3-17.3); White Blood Count 12.1 T/CUMM (4-12)
[2019-02-17 10:49] LABS: Alanine Aminotransferase 58 U/L (16-61); Albumin 2.7 G/DL (3.4-5.0); Alkaline Phosphatase 169 U/L (45-117); Aspartate Amino Transferase 30 U/L (0-37); Blood Urea Nitrogen 43 MG/DL (7-18); Calcium 9.4 MG/DL (8.5-10.1); Glucose 155 MG/DL (74-106); Total Protein 8.5 G/DL (6.4-8.3)
[2019-02-17 11:12] LABS: Apearance,Urine Slightly Hazy (Clear); Bilirubin,Urine Negative (Negative); Blood, Urine Negative (Negative); Glucose,Urine (UA) Negative (Negative); Ketones,Urine Negative (Negative); Mucus,Urine Occasional /LPF (Occasional); Nitrite,Urine Negative (Negative); Protein,Urine Negative; RBC,Urine 4 /HPF (0-4); Squamous Epithelial Cell,Urine Occasional /HPF (0-10); Urine Color Amber (Yellow); Urine Specific Gravity 1.012 (1.001-1.035); Urine Urobilinogen < 2.0 EU/DL (0.2-1.0); WBC,Urine 3 /HPF (0-6)
[2019-02-17] MEDS ORDERED: CEFEPIME 1,000 MG in SODIUM CHLORIDE 0.9% 100 ML IV STA (11:38)
[2019-02-17 11:55] LABS: ABG Base Excess 2.1 MMOL/L (-2.5-2.5); ABG HCO3 26.1 MMOL/L (20-26); ABG Oxygen Saturation 88.2 % (95-100); ABG PCO2 37.8 MM HG (35-48); ABG PH 7.447 (7.35-7.45); ABG PO2 57.3 MM HG (80-95); ABG TCO2 23.2 MMOL/L (23-27)
[2019-02-17] MEDS ORDERED: SODIUM CHLORIDE 0.9% 1,000 ML IV STA ×2 (11:59→14:04)
[2019-02-17] MEDS ORDERED: ACETAMINOPHEN 325 MG TABLET PEG PRN (12:46)
[2019-02-17] MEDS ORDERED: ONDANSETRON 4 MG/2 ML VIAL IV PRN (12:46)
[2019-02-17] MEDS ORDERED: ALBUTEROL 2.5 MG/3 ML NEB RESP TX PRN (13:00)
[2019-02-17] MEDS ORDERED: PIPERACILLIN/TAZOBACTAM 3,375 MG in SODIUM CHLORIDE 0.9% 100 ML IV SCH (13:00)
[2019-02-17] MEDS ORDERED: VANCOMYCIN INJ 1,500 MG in SODIUM CHLORIDE 0.9% 250 ML IV SCH (13:00)
[2019-02-17] MEDS ORDERED: POLYVINYL ALCOHOL 1.4% OPH SOLN 15 ML BOTTLE BOTH EYES PRN (13:04)
[2019-02-17] MEDS ORDERED: GLUCAGON 1 MG VIAL IM PRN (13:09)
[2019-02-17] MEDS ORDERED: DEXTROSE 50% 25 GM/50 ML VIAL IV PRN (13:09)
[2019-02-17] MEDS: ALBUTEROL/IPRATROPIUM 3 ML NEB RESP TX SCH ×2 (13:13→19:34)
[2019-02-17] MEDS: LEVOFLOXACIN INJ 750 MG in PREMIX 1 EACH IV SCH (14:03)
[2019-02-17] MEDS: ENOXAPARIN 40 MG/0.4 ML SYRINGE SUBCUT SCH (14:12)
[2019-02-17] MEDS: SODIUM CHLORIDE 0.9% 1,000 ML IV SCH ×2 (14:12→16:30)
[2019-02-17] MEDS: MEROPENEM 500 MG in SYRINGE 1 EACH IV SCH ×2 (16:34→21:40)
[2019-02-17] MEDS: METOPROLOL TARTRATE 50 MG TABLET PEG SCH (16:34)
[2019-02-17] MEDS: VANCOMYCIN INJ 1,750 MG in SODIUM CHLORIDE 0.9% 500 ML IV SCH (16:41)
[2019-02-17] MEDS: INSULIN LISPRO 100 UNIT/ML SUBCUT SCH (17:30)
[2019-02-17] MEDS: LATANOPROST 0.005% OPH SOLN 2.5 ML BOTTLE BOTH EYES SCH (18:19)
[2019-02-17] MEDS: BRIMONIDINE 0.15% OPH SOLN 1 DROP/DROPS BOTTLE BOTH EYES SCH (18:19)
[2019-02-17] MEDS ORDERED: INSULIN GLARGINE 100 UNIT/ML SUBCUT SCH (21:00)
[2019-02-17] MEDS: TIMOLOL 0.5% OPH SOLN 5 ML BOTTLE BOTH EYES SCH (21:40)
[2019-02-17] MEDS: DESITIN 4OZ/NYSTATIN 15 GRAM MIXTURE PASTE TOP SCH (21:40)
[2019-02-18] MEDS: ALBUTEROL/IPRATROPIUM 3 ML NEB RESP TX SCH ×4 (01:27→19:30)
[2019-02-18] MEDS: INSULIN LISPRO 100 UNIT/ML SUBCUT SCH ×4 (02:54→18:08)
[2019-02-18 02:58] LABS: Basophils % 0.3 % (0.0-0.8); Eosinophils # 0.5 10*3/uL (0.0-0.87); Eosinophils % 3.6 % (0.00-10.9); Hematocrit 33.6 VOL% (42.0-52.0); Immature Granulocytes % 0.3 %; Immature Granulocytes Absolute 0.04 #; Lymphocytes # 4.7 10*3/uL (1.4-4.0); Lymphocytes % 35.2 % (21.2-54.2); Mean Corpuscular HGB Conc 29.8 GM/DL (32-36); Mean Corpuscular Volume 97.1 FL (87-102); Mean Platelet Volume 9.4 FL (9.6-12.0); Neutrophils % 53.6 % (38.7-73.9); Platelet Count 493 T/CUMM (130-400); Red Blood Count 3.46 MC/CUMM (3.8-5.5); White Blood Count 13.3 T/CUMM (4-12)
[2019-02-18 03:17] LABS: Hypochromasia 1+; Platelet Estimate Increased; Polychromasia Few
[2019-02-18 03:20] LABS: Calcium 8.5 MG/DL (8.5-10.1); Osmolality,Calculated 296.7 MOS/KG (273-304)
[2019-02-18] MEDS: MEROPENEM 500 MG in SYRINGE 1 EACH IV SCH ×4 (03:55→21:57)
[2019-02-18] MEDS: VANCOMYCIN INJ 1,750 MG in SODIUM CHLORIDE 0.9% 500 ML IV SCH ×2 (04:37→15:42)
[2019-02-18] MEDS: ASPIRIN CHEW 81 MG TABLET PO SCH (08:35)
[2019-02-18] MEDS: ASCORBIC ACID 500 MG TABLET PEG SCH (08:36)
[2019-02-18] MEDS: POTASSIUM CHLORIDE 20 MEQ PACK PEG SCH (08:36)
[2019-02-18] MEDS: METOPROLOL TARTRATE 50 MG TABLET PEG SCH ×2 (08:36→16:20)
[2019-02-18] MEDS: BRIMONIDINE 0.15% OPH SOLN 1 DROP/DROPS BOTTLE BOTH EYES SCH ×2 (08:36→18:09)
[2019-02-18] MEDS: LANSOPRAZOLE ODT 30 MG TABLET PEG SCH (08:36)
[2019-02-18] MEDS: MULTIVITAMIN LIQUID (CENTRUM) 60 ML BOTTLE PEG SCH (08:36)
[2019-02-18] MEDS: AMIODARONE 200 MG TABLET PEG SCH (08:36)
[2019-02-18] MEDS: DESITIN 4OZ/NYSTATIN 15 GRAM MIXTURE PASTE TOP SCH ×2 (08:36→22:05)
[2019-02-18] MEDS: TIMOLOL 0.5% OPH SOLN 5 ML BOTTLE BOTH EYES SCH ×3 (08:41→22:06)
[2019-02-18] MEDS ORDERED: INSULIN GLARGINE 100 UNIT/ML SUBCUT SCH (09:00)
[2019-02-18] MEDS: ENOXAPARIN 40 MG/0.4 ML SYRINGE SUBCUT SCH (12:25)
[2019-02-18] MEDS ORDERED: SODIUM CHLORIDE 3% 4 ML NEB RESP TX SCH (13:55)
[2019-02-18] MEDS: LEVOFLOXACIN INJ 750 MG in PREMIX 1 EACH IV SCH (14:34)
[2019-02-18] MEDS: DEXTROSE 5% NACL 0.45% 1,000 ML IV SCH (15:42)
[2019-02-18] MEDS: LATANOPROST 0.005% OPH SOLN 2.5 ML BOTTLE BOTH EYES SCH (18:09)
[2019-02-18] MEDS: SODIUM CHLORIDE 3% 4 ML NEB RESP TX SCH (19:30)
[2019-02-19] MEDS: INSULIN LISPRO 100 UNIT/ML SUBCUT SCH ×5 (00:12→23:25)
[2019-02-19] MEDS: ALBUTEROL/IPRATROPIUM 3 ML NEB RESP TX SCH ×4 (00:22→19:01)
[2019-02-19] MEDS: VANCOMYCIN INJ 1,750 MG in SODIUM CHLORIDE 0.9% 500 ML IV SCH ×2 (03:00→17:27)
[2019-02-19] MEDS: MEROPENEM 500 MG in SYRINGE 1 EACH IV SCH ×5 (03:00→21:25)
[2019-02-19] MEDS: DEXTROSE 5% NACL 0.45% 1,000 ML IV SCH (05:35)
[2019-02-19 06:07] LABS: Calcium 8.5 MG/DL (8.5-10.1); Osmolality,Calculated 294.7 MOS/KG (273-304)
[2019-02-19 06:18] LABS: Basophils % 0.3 % (0.0-0.8); Eosinophils # 0.6 10*3/uL (0.0-0.87); Eosinophils % 4.7 % (0.00-10.9); Immature Granulocytes % 0.6 %; Immature Granulocytes Absolute 0.07 #; Lymphocytes # 2.9 10*3/uL (1.4-4.0); Lymphocytes % 23.9 % (21.2-54.2); Mean Corpuscular HGB Conc 29.1 GM/DL (32-36); Mean Corpuscular Volume 99.4 FL (87-102); Mean Platelet Volume 9.2 FL (9.6-12.0); Monocytes % 6.7 % (1.7-12.7); Neutrophils % 63.8 % (38.7-73.9); Platelet Count 415 T/CUMM (130-400); Red Blood Count 3.22 MC/CUMM (3.8-5.5); White Blood Count 12.1 T/CUMM (4-12)
[2019-02-19 06:19] LABS: Hemoglobin 9.3 GM/DL (14.0-18.0)
[2019-02-19] MEDS: SODIUM CHLORIDE 3% 4 ML NEB RESP TX SCH ×2 (07:15→19:59)
[2019-02-19] MEDS: POTASSIUM CHLORIDE 20 MEQ PACK PEG SCH (08:16)
[2019-02-19] MEDS: ASCORBIC ACID 500 MG TABLET PEG SCH (08:16)
[2019-02-19] MEDS: METOPROLOL TARTRATE 50 MG TABLET PEG SCH ×2 (08:16→17:05)
[2019-02-19] MEDS: AMIODARONE 200 MG TABLET PEG SCH (08:16)
[2019-02-19] MEDS: ASPIRIN CHEW 81 MG TABLET PO SCH (08:16)
[2019-02-19] MEDS: LANSOPRAZOLE ODT 30 MG TABLET PEG SCH (08:16)
[2019-02-19] MEDS: DESITIN 4OZ/NYSTATIN 15 GRAM MIXTURE PASTE TOP SCH ×2 (08:17→20:10)
[2019-02-19] MEDS: BRIMONIDINE 0.15% OPH SOLN 1 DROP/DROPS BOTTLE BOTH EYES SCH ×2 (08:18→18:33)
[2019-02-19] MEDS: MULTIVITAMIN LIQUID (CENTRUM) 60 ML BOTTLE PEG SCH (08:18)
[2019-02-19] MEDS: TIMOLOL 0.5% OPH SOLN 5 ML BOTTLE BOTH EYES SCH ×3 (09:21→23:03)
[2019-02-19] MEDS: ENOXAPARIN 40 MG/0.4 ML SYRINGE SUBCUT SCH (12:05)
[2019-02-19] MEDS: FLUCONAZOLE INJ 200 MG in PREMIX 1 EACH IV SCH (12:05)
[2019-02-19] MEDS: LEVOFLOXACIN INJ 750 MG in PREMIX 1 EACH IV SCH (13:48)
[2019-02-19] MEDS: LATANOPROST 0.005% OPH SOLN 2.5 ML BOTTLE BOTH EYES SCH (18:33)
[2019-02-20] MEDS: ALBUTEROL/IPRATROPIUM 3 ML NEB RESP TX SCH ×3 (00:51→14:00)
[2019-02-20] MEDS: MEROPENEM 500 MG in SYRINGE 1 EACH IV SCH ×3 (04:47→14:52)
[2019-02-20 05:58] LABS: Basophils % 0.4 % (0.0-0.8); Eosinophils # 0.5 10*3/uL (0.0-0.87); Eosinophils % 5.2 % (0.00-10.9); Hematocrit 32.1 VOL% (42.0-52.0); Hemoglobin 9.5 GM/DL (14.0-18.0); Immature Granulocytes % 0.5 %; Immature Granulocytes Absolute 0.05 #; Lymphocytes # 3.2 10*3/uL (1.4-4.0); Lymphocytes % 31.9 % (21.2-54.2); Mean Corpuscular HGB Conc 29.6 GM/DL (32-36); Mean Corpuscular Volume 96.4 FL (87-102); Mean Platelet Volume 9.3 FL (9.6-12.0); Monocytes % 7.2 % (1.7-12.7); Neutrophils % 54.8 % (38.7-73.9); Platelet Count 402 T/CUMM (130-400); Red Blood Count 3.33 MC/CUMM (3.8-5.5); Red Cell Distribution Width 16.7 % (9.3-17.3)
[2019-02-20 06:17] LABS: Calcium 8.6 MG/DL (8.5-10.1); Osmolality,Calculated 285.5 MOS/KG (273-304); Prealbumin 29.8 MG/DL (20-40)
[2019-02-20] MEDS: INSULIN LISPRO 100 UNIT/ML SUBCUT SCH ×2 (06:25→13:32)
[2019-02-20] MEDS: SODIUM CHLORIDE 3% 4 ML NEB RESP TX SCH (07:51)
[2019-02-20] MEDS: ASPIRIN CHEW 81 MG TABLET PO SCH (09:19)
[2019-02-20] MEDS: ASCORBIC ACID 500 MG TABLET PEG SCH (09:19)
[2019-02-20] MEDS: POTASSIUM CHLORIDE 20 MEQ PACK PEG SCH (09:20)
[2019-02-20] MEDS: LANSOPRAZOLE ODT 30 MG TABLET PEG SCH (09:20)
[2019-02-20] MEDS: DESITIN 4OZ/NYSTATIN 15 GRAM MIXTURE PASTE TOP SCH (09:20)
[2019-02-20] MEDS: TIMOLOL 0.5% OPH SOLN 5 ML BOTTLE BOTH EYES SCH (09:20)
[2019-02-20] MEDS: BRIMONIDINE 0.15% OPH SOLN 1 DROP/DROPS BOTTLE BOTH EYES SCH (09:20)
[2019-02-20] MEDS: MULTIVITAMIN LIQUID (CENTRUM) 60 ML BOTTLE PEG SCH (09:27)
[2019-02-20] MEDS: AMIODARONE 200 MG TABLET PEG SCH (09:35)
[2019-02-20] MEDS: METOPROLOL TARTRATE 50 MG TABLET PEG SCH (11:54)
[2019-02-20] MEDS: FLUCONAZOLE INJ 200 MG in PREMIX 1 EACH IV SCH (11:54)
[2019-02-20 12:19] VITALS: BP 149/62
[2019-02-20] MEDS ORDERED: LEVOFLOXACIN 750 MG TABLET PO ONE ×2 (13:25→13:27)
[2019-02-20] MEDS: ENOXAPARIN 40 MG/0.4 ML SYRINGE SUBCUT SCH (13:32)
[2019-02-20] MEDS ORDERED: VANCOMYCIN INJ 1,750 MG in SODIUM CHLORIDE 0.9% 500 ML IV SCH (18:00)
[2019-02-20] MEDS ORDERED: VANCOMYCIN INJ 1,500 MG in SODIUM CHLORIDE 0.9% 500 ML IV SCH (21:00)
== END 2019-02-20 15:46 | DRG 193 ==
LOC: EDBD → EDUNIT# → N.ED 10:03 → N.EDINP 12:26 → SUATTDRO 12:26 → N.5E 14:42
PROVIDERS: ADMIT Family Medicine; ATTEND Internal Medicine

== ENCOUNTER 2019-03-02 01:24 | Inpatient (IN) ==
[2019-03-02] MEDS ORDERED: ONDANSETRON 4 MG/2 ML VIAL IV STA (01:59)
[2019-03-02] MEDS ORDERED: methylPREDNISolone SOD SUC 125 MG/2 ML VIAL IV STA (01:59)
[2019-03-02] MEDS ORDERED: SODIUM CHLORIDE 0.9% 500 ML IV STA (01:59)
[2019-03-02] MEDS ORDERED: PIPERACILLIN/TAZOBACTAM 3,375 MG in SODIUM CHLORIDE 0.9% 100 ML IV STA (01:59)
[2019-03-02] MEDS ORDERED: VANCOMYCIN INJ 1,000 MG in SODIUM CHLORIDE 0.9% 250 ML IV STA (01:59)
[2019-03-02 02:28] LABS: Alanine Aminotransferase 14 U/L (16-61); Albumin 3.3 G/DL (3.4-5.0); Alkaline Phosphatase 176 U/L (45-117); Aspartate Amino Transferase 9 U/L (0-37); Blood Urea Nitrogen 66 MG/DL (7-18); Calcium 10.3 MG/DL (8.5-10.1); Glucose 459 MG/DL (74-106); Osmolality,Calculated 315.5 MOS/KG (273-304); Total Protein 9.8 G/DL (6.4-8.3); Troponin I < 0.015 NG/ML (0.00-0.045)
[2019-03-02 02:38] LABS: INR 0.9; PT Patient Result 10.2 SECS
[2019-03-02 02:45] LABS: Basophils % 0.1 % (0.0-0.8); Hematocrit 52.4 VOL% (42.0-52.0); Hemoglobin 16.3 GM/DL (14.0-18.0); Immature Granulocytes % 0.4 %; Immature Granulocytes Absolute 0.06 #; Lymphocytes # 0.9 10*3/uL (1.4-4.0); Lymphocytes % 5.6 % (21.2-54.2); Mean Corpuscular HGB Conc 31.1 GM/DL (32-36); Mean Corpuscular Volume 92.3 FL (87-102); Mean Platelet Volume 9.6 FL (9.6-12.0); Monocytes % 7.8 % (1.7-12.7); Neutrophils % 86.1 % (38.7-73.9); Platelet Count 419 T/CUMM (130-400); Red Blood Count 5.68 MC/CUMM (3.8-5.5); Red Cell Distribution Width 18.1 % (9.3-17.3); White Blood Count 15.4 T/CUMM (4-12)
[2019-03-02 03:04] LABS: ABG Oxygen Saturation 96.4 % (95-100); ABG PCO2 44.1 MM HG (35-48); ABG PH 7.413 (7.35-7.45); ABG TCO2 24.3 MMOL/L (23-27); Allen Test Positive; Pt O2 Delivery Device Ventilator
[2019-03-02] MEDS ORDERED: POLYVINYL ALCOHOL 1.4% OPH SOLN 15 ML BOTTLE BOTH EYES PRN (03:33)
[2019-03-02] MEDS ORDERED: ACETAMINOPHEN 325 MG TABLET PEG PRN (03:33)
[2019-03-02 03:35] LABS: Apearance,Urine Slightly Hazy (Clear); Bilirubin,Urine Negative (Negative); Blood, Urine Negative (Negative); Glucose,Urine (UA) >=500 mg/dL (Negative); Ketones,Urine Negative (Negative); Mucus,Urine Occasional /LPF (Occasional); Nitrite,Urine Negative (Negative); Protein,Urine 30 MG/DL; RBC,Urine 1 /HPF (0-4); Squamous Epithelial Cell,Urine Occasional /HPF (0-10); Urine Color Yellow (Yellow); Urine Specific Gravity 1.018 (1.001-1.035); Urine Urobilinogen < 2.0 EU/DL (0.2-1.0); WBC,Urine 2 /HPF (0-6)
[2019-03-02] MEDS ORDERED: ALBUTEROL 2.5 MG/3 ML NEB RESP TX PRN (03:40)
[2019-03-02] MEDS: PROPOFOL 1,000 MG/100 ML BOTTLE IV SCH ×2 (03:46→17:03)
[2019-03-02] MEDS ORDERED: DEXTROSE 50% 25 GM/50 ML VIAL IV PRN (03:46)
[2019-03-02] MEDS ORDERED: PANTOPRAZOLE 40 MG VIAL IV SCH (04:00)
[2019-03-02] MEDS: ALBUTEROL/IPRATROPIUM 3 ML NEB RESP TX SCH ×4 (04:45→19:39)
[2019-03-02 05:24] LABS: ABG Base Excess -2.5 MMOL/L (-2.5-2.5); ABG HCO3 22.3 MMOL/L (20-26); ABG Oxygen Saturation 99.7 % (95-100); ABG PCO2 37.4 MM HG (35-48); ABG TCO2 19.7 MMOL/L (23-27); Allen Test Positive; Pt O2 Delivery Device Ventilator
[2019-03-02] MEDS ORDERED: ETOMIDATE 20 MG/10 ML VIAL IV ONE (05:44)
[2019-03-02] MEDS ORDERED: VECURONIUM 10 MG VIAL IV ONE (05:45)
[2019-03-02] MEDS: SODIUM CHLORIDE 0.9% 1,000 ML IV SCH ×3 (05:51→21:34)
[2019-03-02] MEDS ORDERED: INSULIN LISPRO 100 UNIT/ML SUBCUT SCH (06:00)
[2019-03-02 06:42] LABS: Albumin 2.9 G/DL (3.4-5.0); Bilirubin,Total 0.8 MG/DL (0.2-1.0); Calcium 9.3 MG/DL (8.5-10.1); Osmolality,Calculated 322.8 MOS/KG (273-304); Total Protein 8.5 G/DL (6.4-8.3)
[2019-03-02] MEDS ORDERED: SODIUM CHLORIDE 0.9% 1,000 ML IV ONE (06:55)
[2019-03-02 07:26] LABS: Basophils % 0.1 % (0.0-0.8); Eosinophils % 0.1 % (0.00-10.9); Immature Granulocytes % 0.6 %; Immature Granulocytes Absolute 0.09 #; Lymphocytes # 1.8 10*3/uL (1.4-4.0); Lymphocytes % 10.9 % (21.2-54.2); Mean Corpuscular HGB Conc 30.5 GM/DL (32-36); Mean Corpuscular Volume 95.1 FL (87-102); Mean Platelet Volume 9.6 FL (9.6-12.0); Neutrophils % 77.3 % (38.7-73.9); Platelet Count 469 T/CUMM (130-400); Red Cell Distribution Width 16.8 % (9.3-17.3); White Blood Count 16.3 T/CUMM (4-12)
[2019-03-02 07:27] LABS: Hemoglobin 12.5 GM/DL (14.0-18.0); Red Blood Count 4.31 MC/CUMM (3.8-5.5)
[2019-03-02] MEDS: ASPIRIN CHEW 81 MG TABLET PO SCH (08:25)
[2019-03-02] MEDS: AMIODARONE 200 MG TABLET PEG SCH (08:25)
[2019-03-02] MEDS: FAMOTIDINE 20 MG/2 ML VIAL IV SCH ×2 (08:26→20:21)
[2019-03-02] MEDS ORDERED: ENOXAPARIN 40 MG/0.4 ML SYRINGE SUBCUT SCH (09:00)
[2019-03-02] MEDS ORDERED: INSULIN GLARGINE 100 UNIT/ML SUBCUT SCH ×2 (09:00→21:00)
[2019-03-02] MEDS ORDERED: METOPROLOL TARTRATE 50 MG TABLET PEG SCH (09:00)
[2019-03-02] MEDS: MEROPENEM 1,000 MG in SODIUM CHLORIDE 0.9% 100 ML IV SCH ×2 (10:14→20:14)
[2019-03-02] MEDS: ENOXAPARIN 30 MG/0.3 ML SYRINGE SUBCUT SCH (10:16)
[2019-03-02] MEDS ORDERED: SODIUM CHLORIDE 0.9% 500 ML IV ONE (10:51)
[2019-03-02] MEDS: PHENYLEPHRINE DRIP 40 MG/250 ML PREMIX IV PRN ×2 (11:01→20:18)
[2019-03-02] MEDS ORDERED: VANCOMYCIN INJ 1,500 MG in SODIUM CHLORIDE 0.9% 500 ML IV SCH (12:00)
[2019-03-02] MEDS: INSULIN LISPRO 100 UNIT/ML SUBCUT SCH ×3 (12:28→20:14)
[2019-03-02] MEDS ORDERED: PIPERACILLIN/TAZOBACTAM 3,375 MG in SODIUM CHLORIDE 0.9% 100 ML IV SCH (14:00)
[2019-03-03] MEDS: INSULIN LISPRO 100 UNIT/ML SUBCUT SCH ×6 (00:04→20:26)
[2019-03-03] MEDS: ALBUTEROL/IPRATROPIUM 3 ML NEB RESP TX SCH ×4 (01:34→20:52)
[2019-03-03] MEDS: PHENYLEPHRINE DRIP 40 MG/250 ML PREMIX IV PRN (02:00)
[2019-03-03] MEDS: VANCOMYCIN INJ 1,000 MG in SODIUM CHLORIDE 0.9% 250 ML IV SCH (04:09)
[2019-03-03] MEDS: GLUCAGON 1 MG VIAL IM PRN ×2 (04:22→16:30)
[2019-03-03 04:24] LABS: ABG Base Excess -0.1 MMOL/L (-2.5-2.5); ABG HCO3 24.4 MMOL/L (20-26); ABG Oxygen Saturation 99.6 % (95-100); ABG PCO2 36.8 MM HG (35-48); ABG PH 7.423 (7.35-7.45); ABG TCO2 21.9 MMOL/L (23-27); Allen Test Positive; Pt O2 Delivery Device Ventilator
[2019-03-03 05:01] LABS: Basophils % 0.2 % (0.0-0.8); Red Blood Count 3.66 MC/CUMM (3.8-5.5)
[2019-03-03 05:26] LABS: Hematocrit 36.6 VOL% (42.0-52.0); Immature Granulocytes % 0.7 %; Immature Granulocytes Absolute 0.14 #; Lymphocytes # 5.1 10*3/uL (1.4-4.0); Mean Corpuscular HGB Conc 28.4 GM/DL (32-36); Mean Platelet Volume 9.6 FL (9.6-12.0); Monocytes % 14.3 % (1.7-12.7); Neutrophils % 58.8 % (38.7-73.9); Platelet Count 417 T/CUMM (130-400); White Blood Count 19.5 T/CUMM (4-12)
[2019-03-03 05:29] LABS: Hemoglobin 10.4 GM/DL (14.0-18.0)
[2019-03-03 05:33] LABS: Platelet Estimate Normal
[2019-03-03 05:34] LABS: Polychromasia Few
[2019-03-03 05:39] LABS: Calcium 8.5 MG/DL (8.5-10.1); Osmolality,Calculated 310.7 MOS/KG (273-304)
[2019-03-03] MEDS: PROPOFOL 1,000 MG/100 ML BOTTLE IV SCH (06:04)
[2019-03-03] MEDS: SODIUM CHLORIDE 0.9% 1,000 ML IV SCH (06:28)
[2019-03-03] MEDS: POTASSIUM CHLORIDE RIDER 10 MEQ in PREMIX 1 EACH IV PRN ×2 (06:38→07:39)
[2019-03-03] MEDS ORDERED: INSULIN GLARGINE 100 UNIT/ML SUBCUT SCH ×2 (09:00→21:00)
[2019-03-03] MEDS: ENOXAPARIN 30 MG/0.3 ML SYRINGE SUBCUT SCH (09:00)
[2019-03-03] MEDS: AMIODARONE 200 MG TABLET PEG SCH (09:00)
[2019-03-03] MEDS: ASPIRIN CHEW 81 MG TABLET PO SCH (09:00)
[2019-03-03] MEDS: FAMOTIDINE 20 MG/2 ML VIAL IV SCH (09:01)
[2019-03-03] MEDS: MEROPENEM 1,000 MG in SODIUM CHLORIDE 0.9% 100 ML IV SCH ×2 (09:01→20:25)
[2019-03-03] MEDS: SODIUM CHLORIDE 0.45% 1,000 ML IV SCH ×2 (09:05→19:05)
[2019-03-03 13:44] LABS: HIV Antigen/Antibody Result Nonreactive (Nonreactive); Hepatitis B Surface Ag Quant < 0.10 Index; Hepatitis B Surface Ag Result Negative (Negative); Hepatitis C Virus Ab Quant 0.27 Index; Hepatitis C Virus Ab Result Negative (Negative)
[2019-03-03] MEDS ORDERED: DEXTROSE 50% 25 GM/50 ML VIAL IV PRN (15:12)
[2019-03-03] MEDS: INSULIN GLARGINE 100 UNIT/ML SUBCUT SCH (20:25)
[2019-03-03] MEDS: RANITIDINE 150 MG/10 ML 30 ML BOTTLE PEG SCH (20:25)
[2019-03-04] MEDS: INSULIN LISPRO 100 UNIT/ML SUBCUT SCH ×7 (00:07→23:36)
[2019-03-04] MEDS: ALBUTEROL/IPRATROPIUM 3 ML NEB RESP TX SCH ×4 (01:16→20:11)
[2019-03-04] MEDS: PROPOFOL 1,000 MG/100 ML BOTTLE IV SCH ×3 (02:03→20:58)
[2019-03-04] MEDS: VANCOMYCIN INJ 1,000 MG in SODIUM CHLORIDE 0.9% 250 ML IV SCH ×2 (03:23→16:58)
[2019-03-04 03:52] LABS: ABG HCO3 24.4 MMOL/L (20-26); ABG Oxygen Saturation 98.4 % (95-100); ABG PCO2 35.2 MM HG (35-48); ABG PH 7.437 (7.35-7.45); ABG TCO2 21.2 MMOL/L (23-27); Allen Test Positive; Pt O2 Delivery Device Ventilator
[2019-03-04 04:10] LABS: Calcium 8.2 MG/DL (8.5-10.1); Osmolality,Calculated 298.4 MOS/KG (273-304)
[2019-03-04] MEDS: SODIUM CHLORIDE 0.45% 1,000 ML IV SCH ×2 (05:30→16:46)
[2019-03-04] MEDS: POTASSIUM CHLORIDE RIDER 10 MEQ in PREMIX 1 EACH IV PRN ×2 (06:00→07:05)
[2019-03-04 06:26] LABS: Basophils % 0.3 % (0.0-0.8); Eosinophils % 0.2 % (0.00-10.9); Hematocrit 29.7 VOL% (42.0-52.0); Hemoglobin 8.9 GM/DL (14.0-18.0); Immature Granulocytes % 0.6 %; Immature Granulocytes Absolute 0.06 #; Lymphocytes # 3.2 10*3/uL (1.4-4.0); Lymphocytes % 32.7 % (21.2-54.2); Mean Platelet Volume 9.7 FL (9.6-12.0); Monocytes % 10.3 % (1.7-12.7); Neutrophils % 55.9 % (38.7-73.9); Red Blood Count 3.03 MC/CUMM (3.8-5.5); Red Cell Distribution Width 16.8 % (9.3-17.3)
[2019-03-04 06:29] LABS: White Blood Count 9.8 T/CUMM (4-12)
[2019-03-04 06:30] LABS: Platelet Count 289 T/CUMM (130-400)
[2019-03-04] MEDS: ASPIRIN CHEW 81 MG TABLET PO SCH (08:58)
[2019-03-04] MEDS: AMIODARONE 200 MG TABLET PEG SCH (08:58)
[2019-03-04] MEDS: ENOXAPARIN 40 MG/0.4 ML SYRINGE SUBCUT SCH (08:59)
[2019-03-04] MEDS: INSULIN GLARGINE 100 UNIT/ML SUBCUT SCH ×2 (08:59→20:37)
[2019-03-04] MEDS: MEROPENEM 1,000 MG in SODIUM CHLORIDE 0.9% 100 ML IV SCH ×2 (08:59→20:38)
[2019-03-04] MEDS: RANITIDINE 150 MG/10 ML 30 ML BOTTLE PEG SCH ×2 (09:00→20:38)
[2019-03-05] MEDS: ALBUTEROL/IPRATROPIUM 3 ML NEB RESP TX SCH ×4 (00:53→19:50)
[2019-03-05] MEDS: SODIUM CHLORIDE 0.45% 1,000 ML IV SCH ×2 (02:30→11:42)
[2019-03-05 03:06] LABS: ABG Base Excess -0.5 MMOL/L (-2.5-2.5); ABG HCO3 23.4 MMOL/L (20-26); ABG Oxygen Saturation 98.4 % (95-100); ABG PCO2 35.4 MM HG (35-48); ABG PH 7.439 (7.35-7.45); ABG TCO2 24.5 MMOL/L (23-27); Allen Test Positive
[2019-03-05 03:46] LABS: Basophils % 0.2 % (0.0-0.8); Eosinophils # 0.4 10*3/uL (0.0-0.87); Eosinophils % 4.3 % (0.00-10.9); Hemoglobin 8.7 GM/DL (14.0-18.0); Immature Granulocytes % 0.5 %; Immature Granulocytes Absolute 0.04 #; Lymphocytes # 2.9 10*3/uL (1.4-4.0); Lymphocytes % 33.5 % (21.2-54.2); Mean Corpuscular Volume 96.3 FL (87-102); Mean Platelet Volume 9.5 FL (9.6-12.0); Monocytes % 9.7 % (1.7-12.7); Neutrophils % 51.8 % (38.7-73.9); Platelet Count 274 T/CUMM (130-400); Red Blood Count 3.01 MC/CUMM (3.8-5.5); Red Cell Distribution Width 16.4 % (9.3-17.3); White Blood Count 8.7 T/CUMM (4-12)
[2019-03-05 04:04] LABS: Calcium 8.3 MG/DL (8.5-10.1); Osmolality,Calculated 288.1 MOS/KG (273-304)
[2019-03-05] MEDS: INSULIN LISPRO 100 UNIT/ML SUBCUT SCH ×5 (05:47→20:30)
[2019-03-05] MEDS: VANCOMYCIN INJ 1,000 MG in SODIUM CHLORIDE 0.9% 250 ML IV SCH (05:53)
[2019-03-05] MEDS: PROPOFOL 1,000 MG/100 ML BOTTLE IV SCH ×2 (06:10→08:41)
[2019-03-05] MEDS: ASPIRIN CHEW 81 MG TABLET PO SCH (08:44)
[2019-03-05] MEDS: AMIODARONE 200 MG TABLET PEG SCH (08:44)
[2019-03-05] MEDS: ENOXAPARIN 40 MG/0.4 ML SYRINGE SUBCUT SCH (08:44)
[2019-03-05] MEDS: RANITIDINE 150 MG/10 ML 30 ML BOTTLE PEG SCH ×2 (08:45→21:32)
[2019-03-05] MEDS: MEROPENEM 1,000 MG in SODIUM CHLORIDE 0.9% 100 ML IV SCH ×2 (08:45→21:31)
[2019-03-05] MEDS: INSULIN GLARGINE 100 UNIT/ML SUBCUT SCH ×2 (08:54→21:31)
[2019-03-05] MEDS: VANCOMYCIN INJ 750 MG in SODIUM CHLORIDE 0.9% 250 ML IV SCH (19:19)
[2019-03-06] MEDS: ALBUTEROL/IPRATROPIUM 3 ML NEB RESP TX SCH ×4 (00:27→19:19)
[2019-03-06] MEDS: INSULIN LISPRO 100 UNIT/ML SUBCUT SCH ×6 (00:34→20:57)
[2019-03-06] MEDS: SODIUM CHLORIDE 0.45% 1,000 ML IV SCH ×2 (00:40→21:01)
[2019-03-06] MEDS: PROPOFOL 1,000 MG/100 ML BOTTLE IV SCH ×3 (01:02→22:41)
[2019-03-06 03:25] LABS: ABG Base Excess -0.2 MMOL/L (-2.5-2.5); ABG HCO3 24.3 MMOL/L (20-26); ABG Oxygen Saturation 99.4 % (95-100); ABG PCO2 37.2 MM HG (35-48); ABG PH 7.419 (7.35-7.45); ABG TCO2 22.2 MMOL/L (23-27); Allen Test Positive; Pt O2 Delivery Device Ventilator
[2019-03-06 05:09] LABS: Basophils % 0.2 % (0.0-0.8); Eosinophils # 0.6 10*3/uL (0.0-0.87); Eosinophils % 6.8 % (0.00-10.9); Hematocrit 27.8 VOL% (42.0-52.0); Hemoglobin 8.5 GM/DL (14.0-18.0); Immature Granulocytes % 0.6 %; Immature Granulocytes Absolute 0.05 #; Lymphocytes # 2.5 10*3/uL (1.4-4.0); Mean Corpuscular HGB Conc 30.6 GM/DL (32-36); Mean Corpuscular Volume 94.9 FL (87-102); Mean Platelet Volume 9.7 FL (9.6-12.0); Monocytes % 9.4 % (1.7-12.7); Platelet Count 292 T/CUMM (130-400); Red Blood Count 2.93 MC/CUMM (3.8-5.5); Red Cell Distribution Width 15.9 % (9.3-17.3); White Blood Count 8.7 T/CUMM (4-12)
[2019-03-06 05:43] LABS: Calcium 8.2 MG/DL (8.5-10.1); Osmolality,Calculated 286.3 MOS/KG (273-304)
[2019-03-06] MEDS: ASPIRIN CHEW 81 MG TABLET PO SCH (09:18)
[2019-03-06] MEDS: ENOXAPARIN 40 MG/0.4 ML SYRINGE SUBCUT SCH (09:18)
[2019-03-06] MEDS: AMIODARONE 200 MG TABLET PEG SCH (09:18)
[2019-03-06] MEDS: INSULIN GLARGINE 100 UNIT/ML SUBCUT SCH ×2 (09:18→20:57)
[2019-03-06] MEDS: VANCOMYCIN INJ 750 MG in SODIUM CHLORIDE 0.9% 250 ML IV SCH ×2 (09:19→18:27)
[2019-03-06] MEDS: MEROPENEM 1,000 MG in SODIUM CHLORIDE 0.9% 100 ML IV SCH ×2 (09:19→20:58)
[2019-03-06] MEDS: RANITIDINE 150 MG/10 ML 30 ML BOTTLE PEG SCH ×2 (09:20→22:48)
[2019-03-07] MEDS: INSULIN LISPRO 100 UNIT/ML SUBCUT SCH ×4 (00:15→12:39)
[2019-03-07] MEDS: ALBUTEROL/IPRATROPIUM 3 ML NEB RESP TX SCH ×3 (00:33→13:15)
[2019-03-07 04:20] LABS: Basophils % 0.2 % (0.0-0.8); Eosinophils # 0.6 10*3/uL (0.0-0.87); Eosinophils % 6.2 % (0.00-10.9); Hematocrit 27.8 VOL% (42.0-52.0); Hemoglobin 8.5 GM/DL (14.0-18.0); Immature Granulocytes % 0.5 %; Immature Granulocytes Absolute 0.05 #; Lymphocytes # 2.5 10*3/uL (1.4-4.0); Lymphocytes % 26.2 % (21.2-54.2); Mean Corpuscular HGB Conc 30.6 GM/DL (32-36); Mean Corpuscular Volume 94.6 FL (87-102); Mean Platelet Volume 9.9 FL (9.6-12.0); Monocytes % 9.3 % (1.7-12.7); Neutrophils % 57.6 % (38.7-73.9); Platelet Count 276 T/CUMM (130-400); Red Blood Count 2.94 MC/CUMM (3.8-5.5); Red Cell Distribution Width 16.1 % (9.3-17.3); White Blood Count 9.4 T/CUMM (4-12)
[2019-03-07 04:28] LABS: ABG Base Excess 1.9 MMOL/L (-2.5-2.5); ABG HCO3 25.9 MMOL/L (20-26); ABG PH 7.452 (7.35-7.45); ABG PO2 96.1 MM HG (80-95); ABG TCO2 27.1 MMOL/L (23-27); Allen Test Positive; Pt O2 Delivery Device Ventilator
[2019-03-07 04:33] LABS: Calcium 8.2 MG/DL (8.5-10.1); Osmolality,Calculated 288.8 MOS/KG (273-304)
[2019-03-07] MEDS: VANCOMYCIN INJ 750 MG in SODIUM CHLORIDE 0.9% 250 ML IV SCH (05:53)
[2019-03-07] MEDS: PROPOFOL 1,000 MG/100 ML BOTTLE IV SCH (07:26)
[2019-03-07] MEDS: AMIODARONE 200 MG TABLET PEG SCH (08:26)
[2019-03-07] MEDS: ASPIRIN CHEW 81 MG TABLET PO SCH (08:26)
[2019-03-07] MEDS: MEROPENEM 1,000 MG in SODIUM CHLORIDE 0.9% 100 ML IV SCH (08:26)
[2019-03-07] MEDS: RANITIDINE 150 MG/10 ML 30 ML BOTTLE PEG SCH (08:26)
[2019-03-07] MEDS: INSULIN GLARGINE 100 UNIT/ML SUBCUT SCH (08:26)
[2019-03-07] MEDS: ENOXAPARIN 40 MG/0.4 ML SYRINGE SUBCUT SCH (08:26)
[2019-03-07] MEDS: POTASSIUM CHLORIDE RIDER 10 MEQ in PREMIX 1 EACH IV PRN (08:27)
[2019-03-07] MEDS: SODIUM CHLORIDE 0.45% 1,000 ML IV SCH (08:38)
[2019-03-07 09:06] VITALS: BP 118/47
== END 2019-03-07 15:00 | DRG 870 ==
LOC: EDUNIT# → EDBD → N.ED 01:24 → SUATTDRO 03:40 → N.EDINP 03:40 → N.CC 05:11
PROVIDERS: ADMIT Internal Medicine; ATTEND Internal Medicine Geriatric Medicine

== ENCOUNTER 2019-04-12 22:23 | Inpatient (IN) ==
[2019-04-12] MEDS ORDERED: ALBUTEROL/IPRATROPIUM 3 ML NEB RESP TX STA (23:09)
[2019-04-12] MEDS ORDERED: SODIUM CHLORIDE 0.9% 500 ML IV STA (23:09)
[2019-04-12] MEDS ORDERED: methylPREDNISolone SOD SUC 125 MG/2 ML VIAL IV STA (23:15)
[2019-04-12] MEDS ORDERED: AMPICILLIN/SULBACTAM 3,000 MG in SODIUM CHLORIDE 0.9% 100 ML IV STA (23:15)
[2019-04-12 23:27] LABS: PT Patient Result 11.2 SECS
[2019-04-12 23:35] LABS: Alanine Aminotransferase 18 U/L (16-61); Albumin 2.8 G/DL (3.4-5.0); Alkaline Phosphatase 106 U/L (45-117); Aspartate Amino Transferase 11 U/L (0-37); Blood Urea Nitrogen 49 MG/DL (7-18); Calcium 9.3 MG/DL (8.5-10.1); Glucose 309 MG/DL (74-106); Osmolality,Calculated 316.4 MOS/KG (273-304); Troponin I 0.065 NG/ML (0.00-0.045)
[2019-04-12 23:36] LABS: Basophils % 0.3 % (0.0-0.8); Eosinophils % 0.2 % (0.00-10.9); Hematocrit 47.6 VOL% (42.0-52.0); Immature Granulocytes % 0.5 %; Immature Granulocytes Absolute 0.03 #; Lymphocytes # 1.3 10*3/uL (1.4-4.0); Lymphocytes % 21.7 % (21.2-54.2); Mean Corpuscular Volume 95.6 FL (87-102); Mean Platelet Volume 10.9 FL (9.6-12.0); Monocytes % 9.4 % (1.7-12.7); Neutrophils % 67.9 % (38.7-73.9); Platelet Count 173 T/CUMM (130-400); Red Blood Count 4.98 MC/CUMM (3.8-5.5); Red Cell Distribution Width 15.3 % (9.3-17.3); White Blood Count 5.8 T/CUMM (4-12)
[2019-04-12 23:37] LABS: Hemoglobin 14.3 GM/DL (14.0-18.0)
[2019-04-13 00:35] LABS: Apearance,Urine CLOUDY (Clear); Bacteria,Urine Many /HPF (Few); Bilirubin,Urine Negative (Negative); Blood, Urine Negative (Negative); Glucose,Urine (UA) >=500 mg/dL (Negative); Ketones,Urine Negative (Negative); Mucus,Urine Occasional /LPF (Occasional); Nitrite,Urine Negative (Negative); Protein,Urine 30 MG/DL; RBC,Urine 10 /HPF (0-4); Squamous Epithelial Cell,Urine Occasional /HPF (0-10); Urine Color Amber (Yellow); Urine Specific Gravity 1.016 (1.001-1.035); Urine Urobilinogen < 2.0 EU/DL (0.2-1.0); WBC,Urine 771 /HPF (0-6)
[2019-04-13 01:04] LABS: Anisocytosis 1+; Platelet Estimate Adequate
[2019-04-13] MEDS ORDERED: BISACODYL 5 MG TABLET PO PRN (01:44)
[2019-04-13] MEDS ORDERED: ONDANSETRON 4 MG/2 ML VIAL IV PRN (01:44)
[2019-04-13] MEDS ORDERED: diphenhydrAMINE CAP 25 MG CAPSULE PO PRN (01:44)
[2019-04-13] MEDS ORDERED: NICOTINE 21 MG/24 HR PATCH TRANSDERM PRN (01:44)
[2019-04-13] MEDS: SODIUM CHLORIDE 0.9% 1,000 ML IV SCH ×3 (02:50→23:32)
[2019-04-13 03:57] LABS: Basophils % 0.3 % (0.0-0.8); Hematocrit 37.9 VOL% (42.0-52.0); Immature Granulocytes % 0.3 %; Immature Granulocytes Absolute 0.02 #; Lymphocytes # 0.7 10*3/uL (1.4-4.0); Lymphocytes % 11.4 % (21.2-54.2); Mean Corpuscular HGB Conc 29.6 GM/DL (32-36); Mean Corpuscular Volume 96.7 FL (87-102); Mean Platelet Volume 11.1 FL (9.6-12.0); Monocytes % 4.2 % (1.7-12.7); Neutrophils % 83.8 % (38.7-73.9); Platelet Count 211 T/CUMM (130-400); Red Blood Count 3.92 MC/CUMM (3.8-5.5); Red Cell Distribution Width 15.3 % (9.3-17.3); White Blood Count 5.9 T/CUMM (4-12)
[2019-04-13 03:58] LABS: Hemoglobin 11.2 GM/DL (14.0-18.0)
[2019-04-13 04:01] LABS: Albumin 2.5 G/DL (3.4-5.0); Bilirubin,Total 0.8 MG/DL (0.2-1.0); Calcium 8.7 MG/DL (8.5-10.1); Osmolality,Calculated 318.4 MOS/KG (273-304); Total Protein 7.7 G/DL (6.4-8.3)
[2019-04-13 04:52] LABS: Hypochromasia 1+; Platelet Estimate Adequate
[2019-04-13] MEDS: CEFEPIME 1,000 MG in SODIUM CHLORIDE 0.9% 100 ML IV SCH ×4 (04:59→23:29)
[2019-04-13] MEDS: metroNIDAZOLE INJ 500 MG in PREMIX 1 EACH IV SCH ×3 (06:04→22:24)
[2019-04-13] MEDS: ALBUTEROL/IPRATROPIUM 3 ML NEB RESP TX SCH ×3 (07:53→19:06)
[2019-04-13] MEDS ORDERED: AMPICILLIN/SULBACTAM 3,000 MG in SODIUM CHLORIDE 0.9% 100 ML IV SCH (09:00)
[2019-04-13] MEDS: INSULIN GLARGINE 100 UNIT/ML SUBCUT SCH (10:08)
[2019-04-13] MEDS: PANTOPRAZOLE 40 MG TABLET PO SCH (10:09)
[2019-04-13] MEDS: methylPREDNISolone SOD SUC 40 MG/1 ML VIAL IV SCH ×2 (10:37→20:44)
[2019-04-13] MEDS: VANCOMYCIN INJ 1,250 MG in SODIUM CHLORIDE 0.9% 250 ML IV SCH ×2 (10:38→20:45)
[2019-04-13] MEDS ORDERED: INSULIN GLARGINE 100 UNIT/ML SUBCUT SCH (21:00)
[2019-04-14] MEDS: ALBUTEROL/IPRATROPIUM 3 ML NEB RESP TX SCH ×4 (00:21→19:42)
[2019-04-14] MEDS: CEFEPIME 1,000 MG in SODIUM CHLORIDE 0.9% 100 ML IV SCH ×3 (04:39→18:33)
[2019-04-14 05:29] LABS: Calcium 9.2 MG/DL (8.5-10.1); Osmolality,Calculated 341.3 MOS/KG (273-304)
[2019-04-14] MEDS: metroNIDAZOLE INJ 500 MG in PREMIX 1 EACH IV SCH ×3 (05:34→23:38)
[2019-04-14 05:52] LABS: Basophils % 0.1 % (0.0-0.8); Hematocrit 37.9 VOL% (42.0-52.0); Hemoglobin 11.3 GM/DL (14.0-18.0); Immature Granulocytes % 0.6 %; Immature Granulocytes Absolute 0.04 #; Lymphocytes # 0.6 10*3/uL (1.4-4.0); Mean Corpuscular HGB Conc 29.8 GM/DL (32-36); Mean Corpuscular Volume 98.2 FL (87-102); Mean Platelet Volume 11.7 FL (9.6-12.0); Monocytes % 6.5 % (1.7-12.7); Neutrophils % 84.8 % (38.7-73.9); Platelet Count 253 T/CUMM (130-400); Red Blood Count 3.86 MC/CUMM (3.8-5.5); Red Cell Distribution Width 14.9 % (9.3-17.3); White Blood Count 7.3 T/CUMM (4-12)
[2019-04-14] MEDS: INSULIN GLARGINE 100 UNIT/ML SUBCUT SCH ×3 (05:55→22:15)
[2019-04-14 06:11] LABS: Atypical Lymphocytes Few; Band Neutrophils 2 % (0-10); Hypochromasia 1+; Lymphocytes 10 % (20-55); Microcytosis Slight; Segmented Neutrophils 81 % (50-85); Total Cells Counted 100
[2019-04-14] MEDS: SODIUM CHLORIDE 0.45% 1,000 ML IV SCH ×2 (06:17→16:30)
[2019-04-14] MEDS: ENOXAPARIN 40 MG/0.4 ML SYRINGE SUBCUT SCH (07:17)
[2019-04-14] MEDS ORDERED: DEXTROSE 50% 25 GM/50 ML VIAL IV PRN (07:55)
[2019-04-14] MEDS ORDERED: GLUCAGON 1 MG VIAL IM PRN (07:55)
[2019-04-14] MEDS ORDERED: NON-FORMULARY MEDICATION (Pantoprazole [Protonix] 40 MG) PEG SCH (09:00)
[2019-04-14] MEDS: ASPIRIN CHEW 81 MG TABLET PO SCH (09:08)
[2019-04-14] MEDS: TIMOLOL 0.5% OPH SOLN 5 ML BOTTLE BOTH EYES SCH ×2 (09:08→22:17)
[2019-04-14] MEDS: PANTOPRAZOLE 40 MG TABLET PO SCH (09:09)
[2019-04-14] MEDS: VANCOMYCIN INJ 1,250 MG in SODIUM CHLORIDE 0.9% 250 ML IV SCH ×2 (09:09→22:14)
[2019-04-14] MEDS: AMIODARONE 200 MG TABLET PEG SCH (09:09)
[2019-04-14] MEDS: INSULIN REGULAR 100 UNIT/ML SUBCUT SCH ×2 (13:00→18:33)
[2019-04-14] MEDS: LATANOPROST 0.005% OPH SOLN 2.5 ML BOTTLE BOTH EYES SCH (19:38)
[2019-04-14 20:56] LABS: ABG Base Excess -2.1 MMOL/L (-2.5-2.5); ABG HCO3 22.7 MMOL/L (20-26); ABG Oxygen Saturation 97.3 % (95-100); ABG PH 7.407 (7.35-7.45); ABG PO2 95.7 MM HG (80-95); ABG TCO2 19.4 MMOL/L (23-27); Allen Test Positive; Pt O2 Delivery Device Simple Mask
[2019-04-14] MEDS ORDERED: FUROSEMIDE 20 MG/2 ML VIAL IV ONE (21:37)
[2019-04-14] MEDS ORDERED: AZITHROMYCIN INJ 500 MG in SODIUM CHLORIDE 0.9% 250 ML IV SCH (23:00)
[2019-04-15] MEDS: INSULIN REGULAR 100 UNIT/ML SUBCUT SCH ×4 (01:15→18:58)
[2019-04-15] MEDS: CEFEPIME 1,000 MG in SODIUM CHLORIDE 0.9% 100 ML IV SCH ×4 (02:27→17:54)
[2019-04-15] MEDS: SODIUM CHLORIDE 0.45% 1,000 ML IV SCH ×2 (04:12→16:17)
[2019-04-15] MEDS: metroNIDAZOLE INJ 500 MG in PREMIX 1 EACH IV SCH (05:28)
[2019-04-15 06:31] LABS: Calcium 9.2 MG/DL (8.5-10.1); Osmolality,Calculated 331.7 MOS/KG (273-304)
[2019-04-15 06:32] LABS: Basophils % 0.2 % (0.0-0.8); Hemoglobin 12.4 GM/DL (14.0-18.0); Immature Granulocytes % 0.7 %; Immature Granulocytes Absolute 0.08 #; Lymphocytes # 2.2 10*3/uL (1.4-4.0); Lymphocytes % 18.8 % (21.2-54.2); Mean Corpuscular HGB Conc 30.2 GM/DL (32-36); Mean Corpuscular Volume 98.6 FL (87-102); Mean Platelet Volume 11.4 FL (9.6-12.0); Monocytes % 10.6 % (1.7-12.7); Neutrophils % 69.7 % (38.7-73.9); Platelet Count 272 T/CUMM (130-400); Red Blood Count 4.16 MC/CUMM (3.8-5.5); White Blood Count 11.6 T/CUMM (4-12)
[2019-04-15] MEDS: ENOXAPARIN 40 MG/0.4 ML SYRINGE SUBCUT SCH (06:49)
[2019-04-15 06:53] LABS: Platelet Estimate Normal
[2019-04-15 06:54] LABS: Anisocytosis Slight; Macrocytosis Slight
[2019-04-15] MEDS: ALBUTEROL/IPRATROPIUM 3 ML NEB RESP TX SCH ×4 (07:45→20:17)
[2019-04-15] MEDS: AMIODARONE 200 MG TABLET PEG SCH (10:54)
[2019-04-15] MEDS: VANCOMYCIN INJ 1,250 MG in SODIUM CHLORIDE 0.9% 250 ML IV SCH (10:54)
[2019-04-15] MEDS: TIMOLOL 0.5% OPH SOLN 5 ML BOTTLE BOTH EYES SCH ×2 (10:55→21:22)
[2019-04-15] MEDS: ASPIRIN CHEW 81 MG TABLET PO SCH (10:55)
[2019-04-15] MEDS: PANTOPRAZOLE 40 MG TABLET PO SCH (10:55)
[2019-04-15] MEDS: INSULIN GLARGINE 100 UNIT/ML SUBCUT SCH ×2 (10:55→21:22)
[2019-04-15] MEDS: ACETAMINOPHEN 325 MG TABLET PO PRN (11:40)
[2019-04-15] MEDS: POTASSIUM CHLORIDE INJ 20 MEQ, SODIUM CHLORIDE 23.4% CONC INJ 38.5 MEQ in STERILE WATER... IV SCH (17:54)
[2019-04-15] MEDS: LATANOPROST 0.005% OPH SOLN 2.5 ML BOTTLE BOTH EYES SCH (21:22)
[2019-04-16] MEDS: ALBUTEROL/IPRATROPIUM 3 ML NEB RESP TX SCH ×4 (00:36→20:12)
[2019-04-16] MEDS: INSULIN REGULAR 100 UNIT/ML SUBCUT SCH ×5 (00:44→23:33)
[2019-04-16] MEDS: CEFEPIME 1,000 MG in SODIUM CHLORIDE 0.9% 100 ML IV SCH ×2 (00:47→06:11)
[2019-04-16] MEDS: POTASSIUM CHLORIDE INJ 20 MEQ, SODIUM CHLORIDE 23.4% CONC INJ 38.5 MEQ in STERILE WATER... IV SCH ×2 (05:28→17:47)
[2019-04-16 05:46] LABS: Calcium 8.6 MG/DL (8.5-10.1); Osmolality,Calculated 324.3 MOS/KG (273-304)
[2019-04-16] MEDS: ENOXAPARIN 40 MG/0.4 ML SYRINGE SUBCUT SCH (06:11)
[2019-04-16] MEDS ORDERED: VANCOMYCIN INJ 1,250 MG in SODIUM CHLORIDE 0.9% 250 ML IV SCH (09:00)
[2019-04-16] MEDS: INSULIN GLARGINE 100 UNIT/ML SUBCUT SCH ×2 (10:25→22:12)
[2019-04-16] MEDS: AMIODARONE 200 MG TABLET PEG SCH (10:25)
[2019-04-16] MEDS: ASPIRIN CHEW 81 MG TABLET PO SCH (10:25)
[2019-04-16] MEDS: PANTOPRAZOLE 40 MG TABLET PO SCH (10:26)
[2019-04-16] MEDS: TIMOLOL 0.5% OPH SOLN 5 ML BOTTLE BOTH EYES SCH ×2 (10:26→22:12)
[2019-04-16] MEDS ORDERED: metroNIDAZOLE INJ 500 MG in PREMIX 1 EACH IV SCH (11:00)
[2019-04-16] MEDS: CLINDAMYCIN INJ 600 MG in PREMIX 1 EACH IV SCH ×2 (12:33→22:13)
[2019-04-16] MEDS: INSULIN LISPRO 100 UNIT/ML SUBCUT SCH ×3 (13:02→23:33)
[2019-04-16] MEDS: cefTRIAXone 2,000 MG in SYRINGE 1 EACH IV SCH (13:18)
[2019-04-16] MEDS: LATANOPROST 0.005% OPH SOLN 2.5 ML BOTTLE BOTH EYES SCH (22:12)
[2019-04-17] MEDS: ALBUTEROL/IPRATROPIUM 3 ML NEB RESP TX SCH ×4 (00:50→19:21)
[2019-04-17] MEDS: POTASSIUM CHLORIDE INJ 20 MEQ, SODIUM CHLORIDE 23.4% CONC INJ 38.5 MEQ in STERILE WATER... IV SCH ×2 (03:02→14:16)
[2019-04-17] MEDS: CLINDAMYCIN INJ 600 MG in PREMIX 1 EACH IV SCH ×3 (03:03→18:36)
[2019-04-17] MEDS: INSULIN REGULAR 100 UNIT/ML SUBCUT SCH ×3 (05:05→17:54)
[2019-04-17 05:11] LABS: Calcium 8.2 MG/DL (8.5-10.1); Osmolality,Calculated 309.7 MOS/KG (273-304); Prealbumin 20.5 MG/DL (20-40)
[2019-04-17] MEDS: ENOXAPARIN 40 MG/0.4 ML SYRINGE SUBCUT SCH (06:09)
[2019-04-17] MEDS: INSULIN LISPRO 100 UNIT/ML SUBCUT SCH ×3 (06:09→17:55)
[2019-04-17] MEDS: AMIODARONE 200 MG TABLET PEG SCH (09:00)
[2019-04-17] MEDS: PANTOPRAZOLE 40 MG TABLET PO SCH (09:00)
[2019-04-17] MEDS: ASPIRIN CHEW 81 MG TABLET PO SCH (09:00)
[2019-04-17] MEDS: TIMOLOL 0.5% OPH SOLN 5 ML BOTTLE BOTH EYES SCH ×2 (09:00→22:19)
[2019-04-17] MEDS: cefTRIAXone 2,000 MG in SYRINGE 1 EACH IV SCH (11:59)
[2019-04-17] MEDS: POTASSIUM PHOS/SOD PHOS POWDER 250 MG PACK PER TUBE SCH ×2 (15:51→22:08)
[2019-04-17] MEDS: LATANOPROST 0.005% OPH SOLN 2.5 ML BOTTLE BOTH EYES SCH (18:40)
[2019-04-17] MEDS: INSULIN GLARGINE 100 UNIT/ML SUBCUT SCH (22:19)
[2019-04-18] MEDS: MORPHINE 4 MG/1 ML VIAL IV PRN (00:55)
[2019-04-18] MEDS: ALBUTEROL/IPRATROPIUM 3 ML NEB RESP TX SCH ×4 (00:57→18:30)
[2019-04-18] MEDS: INSULIN LISPRO 100 UNIT/ML SUBCUT SCH ×4 (02:11→17:59)
[2019-04-18] MEDS: INSULIN REGULAR 100 UNIT/ML SUBCUT SCH ×4 (02:11→18:06)
[2019-04-18] MEDS: CLINDAMYCIN INJ 600 MG in PREMIX 1 EACH IV SCH ×3 (02:48→18:38)
[2019-04-18 05:44] LABS: Osmolality,Calculated 293.8 MOS/KG (273-304)
[2019-04-18] MEDS: ENOXAPARIN 40 MG/0.4 ML SYRINGE SUBCUT SCH (07:10)
[2019-04-18] MEDS: cefTRIAXone 2,000 MG in SYRINGE 1 EACH IV SCH (10:29)
[2019-04-18] MEDS: AMIODARONE 200 MG TABLET PEG SCH (10:30)
[2019-04-18] MEDS: POTASSIUM PHOS/SOD PHOS POWDER 250 MG PACK PER TUBE SCH ×3 (10:30→22:04)
[2019-04-18] MEDS: ASPIRIN CHEW 81 MG TABLET PO SCH (10:30)
[2019-04-18] MEDS: TIMOLOL 0.5% OPH SOLN 5 ML BOTTLE BOTH EYES SCH ×2 (10:30→22:04)
[2019-04-18] MEDS: PANTOPRAZOLE 40 MG TABLET PO SCH (10:30)
[2019-04-18] MEDS: POTASSIUM CHLORIDE INJ 20 MEQ, SODIUM CHLORIDE 23.4% CONC INJ 38.5 MEQ in STERILE WATER... IV SCH ×2 (15:22→15:23)
[2019-04-18] MEDS: LATANOPROST 0.005% OPH SOLN 2.5 ML BOTTLE BOTH EYES SCH (18:24)
[2019-04-18] MEDS: INSULIN GLARGINE 100 UNIT/ML SUBCUT SCH (22:04)
[2019-04-19] MEDS: ALBUTEROL/IPRATROPIUM 3 ML NEB RESP TX SCH ×4 (00:10→19:15)
[2019-04-19] MEDS: INSULIN REGULAR 100 UNIT/ML SUBCUT SCH ×4 (00:16→18:22)
[2019-04-19] MEDS: INSULIN LISPRO 100 UNIT/ML SUBCUT SCH ×4 (00:16→18:19)
[2019-04-19] MEDS: CLINDAMYCIN INJ 600 MG in PREMIX 1 EACH IV SCH ×4 (02:59→18:56)
[2019-04-19] MEDS: MORPHINE 4 MG/1 ML VIAL IV PRN (05:26)
[2019-04-19 05:46] LABS: Basophils % 0.2 % (0.0-0.8); Eosinophils # 0.9 10*3/uL (0.0-0.87); Eosinophils % 7.3 % (0.00-10.9); Hematocrit 30.9 VOL% (42.0-52.0); Hemoglobin 9.2 GM/DL (14.0-18.0); Immature Granulocytes % 1.3 %; Immature Granulocytes Absolute 0.17 #; Lymphocytes # 2.8 10*3/uL (1.4-4.0); Lymphocytes % 21.6 % (21.2-54.2); Mean Corpuscular HGB Conc 29.8 GM/DL (32-36); Mean Corpuscular Volume 96.3 FL (87-102); Mean Platelet Volume 10.4 FL (9.6-12.0); Monocytes % 6.7 % (1.7-12.7); Neutrophils % 62.9 % (38.7-73.9); Platelet Count 355 T/CUMM (130-400); Red Blood Count 3.21 MC/CUMM (3.8-5.5); Red Cell Distribution Width 14.8 % (9.3-17.3); White Blood Count 12.7 T/CUMM (4-12)
[2019-04-19 06:13] LABS: Calcium 8.2 MG/DL (8.5-10.1); Osmolality,Calculated 285.1 MOS/KG (273-304)
[2019-04-19] MEDS: AMIODARONE 200 MG TABLET PEG SCH (08:52)
[2019-04-19] MEDS: TIMOLOL 0.5% OPH SOLN 5 ML BOTTLE BOTH EYES SCH ×2 (08:52→21:18)
[2019-04-19] MEDS: ASPIRIN CHEW 81 MG TABLET PO SCH (08:52)
[2019-04-19] MEDS: PANTOPRAZOLE 40 MG TABLET PO SCH (08:52)
[2019-04-19] MEDS: POTASSIUM PHOS/SOD PHOS POWDER 250 MG PACK PER TUBE SCH ×3 (08:53→21:18)
[2019-04-19] MEDS: ENOXAPARIN 40 MG/0.4 ML SYRINGE SUBCUT SCH (08:53)
[2019-04-19] MEDS: cefTRIAXone 2,000 MG in SYRINGE 1 EACH IV SCH (11:03)
[2019-04-19] MEDS: LATANOPROST 0.005% OPH SOLN 2.5 ML BOTTLE BOTH EYES SCH (19:30)
[2019-04-19] MEDS: INSULIN GLARGINE 100 UNIT/ML SUBCUT SCH (21:18)
[2019-04-20] MEDS: ALBUTEROL/IPRATROPIUM 3 ML NEB RESP TX SCH ×4 (01:37→19:21)
[2019-04-20] MEDS: CLINDAMYCIN INJ 600 MG in PREMIX 1 EACH IV SCH ×2 (02:50→16:22)
[2019-04-20] MEDS: INSULIN REGULAR 100 UNIT/ML SUBCUT SCH ×4 (06:43→18:04)
[2019-04-20] MEDS: INSULIN LISPRO 100 UNIT/ML SUBCUT SCH ×4 (06:46→18:03)
[2019-04-20 07:04] LABS: Calcium 7.6 MG/DL (8.5-10.1); Osmolality,Calculated 279.7 MOS/KG (273-304)
[2019-04-20] MEDS: ENOXAPARIN 40 MG/0.4 ML SYRINGE SUBCUT SCH (09:00)
[2019-04-20] MEDS: POTASSIUM PHOS/SOD PHOS POWDER 250 MG PACK PER TUBE SCH ×3 (09:00→21:27)
[2019-04-20] MEDS: ASPIRIN CHEW 81 MG TABLET PO SCH (09:00)
[2019-04-20] MEDS: AMIODARONE 200 MG TABLET PEG SCH (09:00)
[2019-04-20] MEDS: PANTOPRAZOLE 40 MG TABLET PO SCH (09:00)
[2019-04-20] MEDS: TIMOLOL 0.5% OPH SOLN 5 ML BOTTLE BOTH EYES SCH ×2 (09:02→21:27)
[2019-04-20] MEDS: cefTRIAXone 2,000 MG in SYRINGE 1 EACH IV SCH (16:16)
[2019-04-20] MEDS: LATANOPROST 0.005% OPH SOLN 2.5 ML BOTTLE BOTH EYES SCH (18:03)
[2019-04-20] MEDS: INSULIN GLARGINE 100 UNIT/ML SUBCUT SCH (21:26)
[2019-04-21] MEDS: ALBUTEROL/IPRATROPIUM 3 ML NEB RESP TX SCH ×5 (00:53→18:50)
[2019-04-21] MEDS: INSULIN LISPRO 100 UNIT/ML SUBCUT SCH ×4 (00:59→17:51)
[2019-04-21] MEDS: CLINDAMYCIN INJ 600 MG in PREMIX 1 EACH IV SCH ×3 (00:59→15:51)
[2019-04-21] MEDS: INSULIN REGULAR 100 UNIT/ML SUBCUT SCH ×4 (01:00→17:52)
[2019-04-21] MEDS: ENOXAPARIN 40 MG/0.4 ML SYRINGE SUBCUT SCH (07:25)
[2019-04-21] MEDS: PANTOPRAZOLE 40 MG TABLET PO SCH (09:22)
[2019-04-21] MEDS: AMIODARONE 200 MG TABLET PEG SCH (09:22)
[2019-04-21] MEDS: POTASSIUM PHOS/SOD PHOS POWDER 250 MG PACK PER TUBE SCH ×3 (09:23→21:20)
[2019-04-21] MEDS: ASPIRIN CHEW 81 MG TABLET PO SCH (09:23)
[2019-04-21] MEDS: TIMOLOL 0.5% OPH SOLN 5 ML BOTTLE BOTH EYES SCH ×2 (09:33→21:10)
[2019-04-21] MEDS: cefTRIAXone 2,000 MG in SYRINGE 1 EACH IV SCH ×2 (15:23→15:43)
[2019-04-21] MEDS: LATANOPROST 0.005% OPH SOLN 2.5 ML BOTTLE BOTH EYES SCH (20:51)
[2019-04-21] MEDS: INSULIN GLARGINE 100 UNIT/ML SUBCUT SCH (21:09)
[2019-04-22] MEDS: INSULIN LISPRO 100 UNIT/ML SUBCUT SCH ×5 (00:34→23:29)
[2019-04-22] MEDS: CLINDAMYCIN INJ 600 MG in PREMIX 1 EACH IV SCH ×3 (00:34→16:07)
[2019-04-22] MEDS: INSULIN REGULAR 100 UNIT/ML SUBCUT SCH ×5 (00:38→23:29)
[2019-04-22] MEDS: ALBUTEROL/IPRATROPIUM 3 ML NEB RESP TX SCH ×4 (00:50→19:20)
[2019-04-22 05:39] LABS: Basophils % 0.1 % (0.0-0.8); Eosinophils # 0.4 10*3/uL (0.0-0.87); Eosinophils % 3.6 % (0.00-10.9); Hematocrit 29.8 VOL% (42.0-52.0); Immature Granulocytes % 1.2 %; Immature Granulocytes Absolute 0.13 #; Lymphocytes # 3.4 10*3/uL (1.4-4.0); Lymphocytes % 30.7 % (21.2-54.2); Mean Corpuscular HGB Conc 30.2 GM/DL (32-36); Mean Corpuscular Volume 96.4 FL (87-102); Mean Platelet Volume 9.6 FL (9.6-12.0); Monocytes % 7.5 % (1.7-12.7); Neutrophils % 56.9 % (38.7-73.9); Platelet Count 554 T/CUMM (130-400); Red Blood Count 3.09 MC/CUMM (3.8-5.5); Red Cell Distribution Width 15.5 % (9.3-17.3); White Blood Count 11.1 T/CUMM (4-12)
[2019-04-22 05:58] LABS: Calcium 8.8 MG/DL (8.5-10.1); Osmolality,Calculated 285.1 MOS/KG (273-304)
[2019-04-22] MEDS: ENOXAPARIN 40 MG/0.4 ML SYRINGE SUBCUT SCH (06:56)
[2019-04-22] MEDS: AMIODARONE 200 MG TABLET PEG SCH (09:49)
[2019-04-22] MEDS: TIMOLOL 0.5% OPH SOLN 5 ML BOTTLE BOTH EYES SCH ×2 (09:49→20:56)
[2019-04-22] MEDS: POTASSIUM PHOS/SOD PHOS POWDER 250 MG PACK PER TUBE SCH ×3 (09:49→20:56)
[2019-04-22] MEDS: ASPIRIN CHEW 81 MG TABLET PO SCH (09:49)
[2019-04-22] MEDS: PANTOPRAZOLE 40 MG TABLET PO SCH (09:49)
[2019-04-22] MEDS: ACETAMINOPHEN 325 MG TABLET PO PRN (10:25)
[2019-04-22] MEDS: cefTRIAXone 2,000 MG in SYRINGE 1 EACH IV SCH (16:02)
[2019-04-22] MEDS: LATANOPROST 0.005% OPH SOLN 2.5 ML BOTTLE BOTH EYES SCH (19:19)
[2019-04-22] MEDS: INSULIN GLARGINE 100 UNIT/ML SUBCUT SCH (20:56)
[2019-04-23] MEDS: CLINDAMYCIN INJ 600 MG in PREMIX 1 EACH IV SCH ×3 (00:41→15:05)
[2019-04-23] MEDS: ALBUTEROL/IPRATROPIUM 3 ML NEB RESP TX SCH ×4 (00:56→19:05)
[2019-04-23 05:47] LABS: Basophils % 0.2 % (0.0-0.8); Eosinophils # 0.4 10*3/uL (0.0-0.87); Eosinophils % 3.4 % (0.00-10.9); Hematocrit 29.6 VOL% (42.0-52.0); Hemoglobin 9.1 GM/DL (14.0-18.0); Immature Granulocytes Absolute 0.12 #; Lymphocytes # 3.4 10*3/uL (1.4-4.0); Lymphocytes % 28.5 % (21.2-54.2); Mean Corpuscular HGB Conc 30.7 GM/DL (32-36); Mean Corpuscular Volume 95.5 FL (87-102); Mean Platelet Volume 9.6 FL (9.6-12.0); Monocytes % 7.5 % (1.7-12.7); Neutrophils % 59.4 % (38.7-73.9); Platelet Count 602 T/CUMM (130-400); Red Cell Distribution Width 15.7 % (9.3-17.3); White Blood Count 11.8 T/CUMM (4-12)
[2019-04-23] MEDS: ENOXAPARIN 40 MG/0.4 ML SYRINGE SUBCUT SCH (06:12)
[2019-04-23] MEDS: INSULIN LISPRO 100 UNIT/ML SUBCUT SCH ×4 (06:12→23:32)
[2019-04-23] MEDS: INSULIN REGULAR 100 UNIT/ML SUBCUT SCH ×4 (06:12→23:33)
[2019-04-23 06:15] LABS: Calcium 8.8 MG/DL (8.5-10.1); Osmolality,Calculated 280.5 MOS/KG (273-304)
[2019-04-23] MEDS: PANTOPRAZOLE 40 MG TABLET PO SCH (08:45)
[2019-04-23] MEDS: POTASSIUM PHOS/SOD PHOS POWDER 250 MG PACK PER TUBE SCH ×3 (08:45→20:50)
[2019-04-23] MEDS: AMIODARONE 200 MG TABLET PEG SCH (08:45)
[2019-04-23] MEDS: ASPIRIN CHEW 81 MG TABLET PO SCH (08:45)
[2019-04-23] MEDS: TIMOLOL 0.5% OPH SOLN 5 ML BOTTLE BOTH EYES SCH ×2 (08:46→20:44)
[2019-04-23] MEDS: cefTRIAXone 2,000 MG in SYRINGE 1 EACH IV SCH (15:02)
[2019-04-23] MEDS: LATANOPROST 0.005% OPH SOLN 2.5 ML BOTTLE BOTH EYES SCH (18:35)
[2019-04-23] MEDS: INSULIN GLARGINE 100 UNIT/ML SUBCUT SCH (20:50)
[2019-04-24] MEDS: ALBUTEROL/IPRATROPIUM 3 ML NEB RESP TX SCH ×4 (00:16→19:23)
[2019-04-24] MEDS: INSULIN REGULAR 100 UNIT/ML SUBCUT SCH ×3 (05:55→18:00)
[2019-04-24] MEDS: ENOXAPARIN 40 MG/0.4 ML SYRINGE SUBCUT SCH (06:09)
[2019-04-24] MEDS: INSULIN LISPRO 100 UNIT/ML SUBCUT SCH ×3 (06:09→18:00)
[2019-04-24] MEDS: POTASSIUM PHOS/SOD PHOS POWDER 250 MG PACK PER TUBE SCH ×3 (10:08→20:50)
[2019-04-24] MEDS: PANTOPRAZOLE 40 MG TABLET PO SCH (10:08)
[2019-04-24] MEDS: AMIODARONE 200 MG TABLET PEG SCH (10:08)
[2019-04-24] MEDS: ASPIRIN CHEW 81 MG TABLET PO SCH (10:08)
[2019-04-24] MEDS: TIMOLOL 0.5% OPH SOLN 5 ML BOTTLE BOTH EYES SCH ×2 (10:14→20:50)
[2019-04-24] MEDS: MENTHOL/ZINC OXIDE OINT 71 GM JAR TOP SCH ×2 (12:58→20:50)
[2019-04-24] MEDS: LATANOPROST 0.005% OPH SOLN 2.5 ML BOTTLE BOTH EYES SCH (19:33)
[2019-04-24] MEDS: INSULIN GLARGINE 100 UNIT/ML SUBCUT SCH (20:48)
[2019-04-25] MEDS: ALBUTEROL/IPRATROPIUM 3 ML NEB RESP TX SCH ×2 (00:35→07:10)
[2019-04-25] MEDS: INSULIN LISPRO 100 UNIT/ML SUBCUT SCH ×2 (00:55→05:53)
[2019-04-25] MEDS: INSULIN REGULAR 100 UNIT/ML SUBCUT SCH ×2 (00:55→05:54)
[2019-04-25] MEDS: ENOXAPARIN 40 MG/0.4 ML SYRINGE SUBCUT SCH (08:40)
[2019-04-25 08:54] VITALS: BP 102/65
== END 2019-04-25 08:40 | DRG 177 ==
LOC: EDBD → EDUNIT# → N.EDINP 22:23 → N.ED 22:23 → N.3E 04-13 03:40 → SUATTDRO 04-13 12:32
PROVIDERS: ADMIT Family Medicine; ATTEND Internal Medicine

== ENCOUNTER 2019-10-02 19:55 | Inpatient (IN) ==
[2019-10-02] MEDS ORDERED: SODIUM CHLORIDE 0.9% 1,000 ML IV STA ×2 (20:34→21:07)
[2019-10-02] MEDS ORDERED: ALBUTEROL/IPRATROPIUM 3 ML NEB RESP TX STA (20:34)
[2019-10-02 21:00] LABS: Basophils % 0.3 % (0.0-0.8); Eosinophils % 0.1 % (0.00-10.9); Hematocrit 45.6 VOL% (42.0-52.0); Hemoglobin 13.7 GM/DL (14.0-18.0); Immature Granulocytes % 0.4 %; Immature Granulocytes Absolute 0.06 #; Lymphocytes # 2.1 10*3/uL (1.4-4.0); Lymphocytes % 14.8 % (21.2-54.2); Mean Corpuscular Volume 98.1 FL (87-102); Mean Platelet Volume 11.3 FL (9.6-12.0); Monocytes % 10.3 % (1.7-12.7); Neutrophils % 74.1 % (38.7-73.9); Platelet Count 419 T/CUMM (130-400); Red Blood Count 4.65 MC/CUMM (3.8-5.5); Red Cell Distribution Width 13.2 % (9.3-17.3); White Blood Count 13.9 T/CUMM (4-12)
[2019-10-02 21:05] LABS: ABG Base Excess 3.4 MMOL/L (-2.5-2.5); ABG HCO3 25.8 MMOL/L (20-26); ABG Oxygen Saturation 94.2 % (95-100); ABG PCO2 32.9 MM HG (35-48); ABG PH 7.513 (7.35-7.45); ABG PO2 68.2 MM HG (80-95); ABG TCO2 26.9 MMOL/L (23-27); Allen Test Positive
[2019-10-02 21:12] LABS: Alanine Aminotransferase 14 U/L (16-61); Albumin 2.5 G/DL (3.4-5.0); Alkaline Phosphatase 123 U/L (45-117); Aspartate Amino Transferase 14 U/L (0-37); Bilirubin,Total < 0.39 MG/DL (0.2-1.0); Blood Urea Nitrogen 47 MG/DL (7-18); Calcium 8.2 MG/DL (8.5-10.1); Estimated Glom Filtration Rate 61 ML/MIN; Glucose 348 MG/DL (74-106); Osmolality,Calculated 324.9 MOS/KG (273-304); Total Protein 7.5 G/DL (6.4-8.3)
[2019-10-02] MEDS ORDERED: LEVOFLOXACIN INJ 500 MG in PREMIX 1 EACH IV STA (21:47)
[2019-10-03] MEDS ORDERED: GLUCAGON 1 MG VIAL IM PRN (01:54)
[2019-10-03] MEDS ORDERED: DEXTROSE 50% 25 GM/50 ML SYRINGE IV PRN (01:54)
[2019-10-03] MEDS ORDERED: ALBUTEROL 2.5 MG/3 ML NEB RESP TX PRN (01:54)
[2019-10-03] MEDS: ALBUTEROL/IPRATROPIUM 3 ML NEB RESP TX SCH ×4 (02:20→19:00)
[2019-10-03] MEDS: SODIUM CHLORIDE 0.45% 1,000 ML IV SCH ×4 (02:40→17:04)
[2019-10-03] MEDS: AMPICILLIN/SULBACTAM 3,000 MG in SODIUM CHLORIDE 0.9% 100 ML IV SCH ×4 (02:41→21:58)
[2019-10-03 02:48] LABS: Basophils % 0.2 % (0.0-0.8); Eosinophils % 0.1 % (0.00-10.9); Hematocrit 39.5 VOL% (42.0-52.0); Hemoglobin 11.7 GM/DL (14.0-18.0); Immature Granulocytes % 0.3 %; Immature Granulocytes Absolute 0.04 #; Lymphocytes # 1.8 10*3/uL (1.4-4.0); Lymphocytes % 14.7 % (21.2-54.2); Mean Corpuscular HGB Conc 29.6 GM/DL (32-36); Mean Corpuscular Volume 98.5 FL (87-102); Mean Platelet Volume 11.3 FL (9.6-12.0); Monocytes % 9.7 % (1.7-12.7); Platelet Count 339 T/CUMM (130-400); Red Blood Count 4.01 MC/CUMM (3.8-5.5); Red Cell Distribution Width 13.2 % (9.3-17.3); White Blood Count 11.9 T/CUMM (4-12)
[2019-10-03 02:52] LABS: Calcium 8.5 MG/DL (8.5-10.1); Osmolality,Calculated 322.1 MOS/KG (273-304)
[2019-10-03] MEDS: INSULIN LISPRO 100 UNIT/ML SUBCUT SCH ×3 (06:49→17:04)
[2019-10-03] MEDS: ACETAMINOPHEN 325 MG TABLET PEG PRN ×3 (07:00→18:29)
[2019-10-03] MEDS: PANTOPRAZOLE 40 MG VIAL IV SCH (08:26)
[2019-10-03] MEDS: INSULIN GLARGINE 100 UNIT/ML SUBCUT SCH (09:44)
[2019-10-03] MEDS: TRIAMCINOLONE 0.1% CREAM 15 GM TUBE TOP SCH ×2 (12:52→21:58)
[2019-10-04] MEDS: ALBUTEROL/IPRATROPIUM 3 ML NEB RESP TX SCH ×4 (00:15→19:44)
[2019-10-04] MEDS: AMPICILLIN/SULBACTAM 3,000 MG in SODIUM CHLORIDE 0.9% 100 ML IV SCH ×4 (02:30→21:04)
[2019-10-04] MEDS: INSULIN LISPRO 100 UNIT/ML SUBCUT SCH ×4 (05:01→18:10)
[2019-10-04 05:20] LABS: Basophils % 0.2 % (0.0-0.8); Hematocrit 36.2 VOL% (42.0-52.0); Immature Granulocytes % 0.9 %; Immature Granulocytes Absolute 0.11 #; Lymphocytes # 1.9 10*3/uL (1.4-4.0); Lymphocytes % 15.7 % (21.2-54.2); Mean Corpuscular HGB Conc 29.6 GM/DL (32-36); Mean Corpuscular Volume 98.9 FL (87-102); Mean Platelet Volume 11.4 FL (9.6-12.0); Monocytes % 7.5 % (1.7-12.7); Neutrophils % 75.7 % (38.7-73.9); Platelet Count 260 T/CUMM (130-400); Red Blood Count 3.66 MC/CUMM (3.8-5.5); Red Cell Distribution Width 13.2 % (9.3-17.3); White Blood Count 12.4 T/CUMM (4-12)
[2019-10-04 05:41] LABS: Calcium 8.3 MG/DL (8.5-10.1); Osmolality,Calculated 323.6 MOS/KG (273-304)
[2019-10-04 05:56] LABS: Hemoglobin 10.9 GM/DL (14.0-18.0)
[2019-10-04 06:15] LABS: Hypochromasia 1+; Microcytosis 1+
[2019-10-04 06:16] LABS: Platelet Estimate Normal; Spherocytes Slight
[2019-10-04] MEDS: PANTOPRAZOLE 40 MG VIAL IV SCH (08:43)
[2019-10-04] MEDS: SODIUM CHLORIDE 0.45% 1,000 ML IV SCH ×4 (08:46→23:42)
[2019-10-04] MEDS: TRIAMCINOLONE 0.1% CREAM 15 GM TUBE TOP SCH ×2 (08:46→21:07)
[2019-10-04] MEDS: INSULIN GLARGINE 100 UNIT/ML SUBCUT SCH (08:47)
[2019-10-04] MEDS ORDERED: METOPROLOL TARTRATE 5 MG/5 ML VIAL IV ONE (17:57)
[2019-10-04] MEDS: BUDESONIDE 0.5 MG/2 ML NEB RESP TX SCH (19:44)
[2019-10-04] MEDS: AMIODARONE 200 MG TABLET PEG SCH (21:08)
[2019-10-05] MEDS: INSULIN LISPRO 100 UNIT/ML SUBCUT SCH ×4 (00:27→17:58)
[2019-10-05] MEDS: ALBUTEROL/IPRATROPIUM 3 ML NEB RESP TX SCH ×4 (00:51→19:12)
[2019-10-05] MEDS: AMPICILLIN/SULBACTAM 3,000 MG in SODIUM CHLORIDE 0.9% 100 ML IV SCH ×4 (02:01→20:17)
[2019-10-05] MEDS: SODIUM CHLORIDE 0.45% 1,000 ML IV SCH ×2 (02:02→09:02)
[2019-10-05 05:52] LABS: Basophils % 0.1 % (0.0-0.8); Hematocrit 32.9 VOL% (42.0-52.0); Hemoglobin 9.7 GM/DL (14.0-18.0); Immature Granulocytes % 0.7 %; Immature Granulocytes Absolute 0.09 #; Lymphocytes # 1.8 10*3/uL (1.4-4.0); Lymphocytes % 14.6 % (21.2-54.2); Mean Corpuscular HGB Conc 29.5 GM/DL (32-36); Mean Corpuscular Volume 99.1 FL (87-102); Mean Platelet Volume 11.9 FL (9.6-12.0); Neutrophils % 76.6 % (38.7-73.9); Platelet Count 284 T/CUMM (130-400); Red Blood Count 3.32 MC/CUMM (3.8-5.5); Red Cell Distribution Width 13.2 % (9.3-17.3); White Blood Count 12.3 T/CUMM (4-12)
[2019-10-05 06:19] LABS: Calcium 8.3 MG/DL (8.5-10.1); Osmolality,Calculated 317.4 MOS/KG (273-304); Prealbumin 12.7 MG/DL (20-40)
[2019-10-05 06:21] LABS: Hypochromasia 1+; Lymphocytes 13 % (20-55); Microcytosis 1+; Platelet Estimate Adequate; Segmented Neutrophils 81 % (50-85); Total Cells Counted 100
[2019-10-05] MEDS: BUDESONIDE 0.5 MG/2 ML NEB RESP TX SCH ×2 (08:08→19:12)
[2019-10-05] MEDS: AMIODARONE 200 MG TABLET PEG SCH ×2 (08:53→20:17)
[2019-10-05] MEDS: PANTOPRAZOLE 40 MG VIAL IV SCH (08:53)
[2019-10-05] MEDS: TRIAMCINOLONE 0.1% CREAM 15 GM TUBE TOP SCH ×2 (09:01→20:23)
[2019-10-05] MEDS: INSULIN GLARGINE 100 UNIT/ML SUBCUT SCH (09:01)
[2019-10-05] MEDS: POTASSIUM CHLORIDE RIDER 10 MEQ in PREMIX 1 EACH IV PRN ×3 (10:20→23:23)
[2019-10-05] MEDS ORDERED: MINERAL OIL ENEMA 133 ML BOTTLE RECTAL ONE (11:56)
[2019-10-05] MEDS: DEXTROSE 5% 1,000 ML IV SCH (13:07)
[2019-10-05] MEDS ORDERED: MAGNESIUM HYDROXIDE SUSP 30 ML UDCUP PO PRN (16:14)
[2019-10-05] MEDS: ACETAMINOPHEN 325 MG TABLET PEG PRN (18:51)
[2019-10-06] MEDS: ALBUTEROL/IPRATROPIUM 3 ML NEB RESP TX SCH ×4 (00:42→20:30)
[2019-10-06] MEDS: ACETAMINOPHEN 325 MG TABLET PEG PRN (01:29)
[2019-10-06] MEDS: POTASSIUM CHLORIDE RIDER 10 MEQ in PREMIX 1 EACH IV PRN (01:38)
[2019-10-06] MEDS: INSULIN LISPRO 100 UNIT/ML SUBCUT SCH ×3 (01:47→12:59)
[2019-10-06] MEDS: DEXTROSE 5% 1,000 ML IV SCH (01:49)
[2019-10-06] MEDS: AMPICILLIN/SULBACTAM 3,000 MG in SODIUM CHLORIDE 0.9% 100 ML IV SCH ×4 (02:51→22:20)
[2019-10-06 05:09] LABS: Basophils % 0.2 % (0.0-0.8); Eosinophils % 0.3 % (0.00-10.9); Hematocrit 32.2 VOL% (42.0-52.0); Hemoglobin 9.4 GM/DL (14.0-18.0); Immature Granulocytes % 0.5 %; Immature Granulocytes Absolute 0.05 #; Lymphocytes # 1.6 10*3/uL (1.4-4.0); Mean Corpuscular HGB Conc 29.2 GM/DL (32-36); Mean Corpuscular Volume 99.4 FL (87-102); Mean Platelet Volume 11.4 FL (9.6-12.0); Platelet Count 271 T/CUMM (130-400); Red Blood Count 3.24 MC/CUMM (3.8-5.5); Red Cell Distribution Width 12.9 % (9.3-17.3); White Blood Count 10.4 T/CUMM (4-12)
[2019-10-06] MEDS: BUDESONIDE 0.5 MG/2 ML NEB RESP TX SCH ×2 (07:20→20:30)
[2019-10-06] MEDS: AMIODARONE 200 MG TABLET PEG SCH ×2 (09:47→22:00)
[2019-10-06] MEDS: INSULIN GLARGINE 100 UNIT/ML SUBCUT SCH ×3 (09:47→22:00)
[2019-10-06] MEDS: PANTOPRAZOLE 40 MG VIAL IV SCH (09:48)
[2019-10-06] MEDS: TRIAMCINOLONE 0.1% CREAM 15 GM TUBE TOP SCH ×2 (12:11→22:00)
[2019-10-06] MEDS: MINERAL OIL 30 ML UDCUP PEG SCH (22:00)
[2019-10-07] MEDS: INSULIN LISPRO 100 UNIT/ML SUBCUT SCH ×5 (00:20→19:20)
[2019-10-07] MEDS: ALBUTEROL/IPRATROPIUM 3 ML NEB RESP TX SCH ×4 (00:30→19:53)
[2019-10-07] MEDS: AMPICILLIN/SULBACTAM 3,000 MG in SODIUM CHLORIDE 0.9% 100 ML IV SCH ×3 (03:16→14:13)
[2019-10-07 05:25] LABS: Basophils % 0.1 % (0.0-0.8); Eosinophils # 0.2 10*3/uL (0.0-0.87); Eosinophils % 1.8 % (0.00-10.9); Hematocrit 31.3 VOL% (42.0-52.0); Hemoglobin 9.2 GM/DL (14.0-18.0); Immature Granulocytes % 0.4 %; Immature Granulocytes Absolute 0.04 #; Lymphocytes # 1.5 10*3/uL (1.4-4.0); Lymphocytes % 14.8 % (21.2-54.2); Mean Corpuscular HGB Conc 29.4 GM/DL (32-36); Mean Corpuscular Volume 98.1 FL (87-102); Mean Platelet Volume 11.4 FL (9.6-12.0); Monocytes % 6.8 % (1.7-12.7); Neutrophils % 76.1 % (38.7-73.9); Platelet Count 291 T/CUMM (130-400); Red Blood Count 3.19 MC/CUMM (3.8-5.5); Red Cell Distribution Width 12.8 % (9.3-17.3)
[2019-10-07] MEDS: BUDESONIDE 0.5 MG/2 ML NEB RESP TX SCH ×2 (07:07→19:53)
[2019-10-07] MEDS: INSULIN GLARGINE 100 UNIT/ML SUBCUT SCH ×2 (09:18→21:38)
[2019-10-07] MEDS: PANTOPRAZOLE 40 MG VIAL IV SCH (09:26)
[2019-10-07] MEDS: AMIODARONE 200 MG TABLET PEG SCH ×2 (09:27→21:34)
[2019-10-07] MEDS: TRIAMCINOLONE 0.1% CREAM 15 GM TUBE TOP SCH ×2 (14:16→21:38)
[2019-10-07] MEDS ORDERED: LEVOFLOXACIN INJ 750 MG in PREMIX 1 EACH IV SCH (20:00)
[2019-10-07] MEDS: MINERAL OIL 30 ML UDCUP PEG SCH (21:34)
[2019-10-07] MEDS: SULFAMETH/TRIMETH INJ 160 MG in DEXTROSE 5% 250 ML IV SCH (21:37)
[2019-10-07 22:40] LABS: ABG Base Excess -0.7 MMOL/L (-2.5-2.5); ABG HCO3 23.8 MMOL/L (20-26); ABG Oxygen Saturation 97.3 % (95-100); ABG PCO2 24.1 MM HG (35-48); ABG PH 7.544 (7.35-7.45); ABG PO2 71.5 MM HG (80-95)
[2019-10-08 00:04] LABS: Osmolality,Calculated 302.4 MOS/KG (273-304)
[2019-10-08] MEDS: ALBUTEROL/IPRATROPIUM 3 ML NEB RESP TX SCH ×4 (00:17→20:25)
[2019-10-08] MEDS ORDERED: ALBUTEROL/IPRATROPIUM 3 ML NEB RESP TX PRN (00:41)
[2019-10-08] MEDS: INSULIN LISPRO 100 UNIT/ML SUBCUT SCH ×4 (00:55→17:41)
[2019-10-08] MEDS: SULFAMETH/TRIMETH INJ 160 MG in DEXTROSE 5% 250 ML IV SCH ×4 (01:08→20:55)
[2019-10-08 05:11] LABS: Basophils % 0.1 % (0.0-0.8); Eosinophils # 0.1 10*3/uL (0.0-0.87); Eosinophils % 1.3 % (0.00-10.9); Hematocrit 30.5 VOL% (42.0-52.0); Immature Granulocytes % 0.5 %; Immature Granulocytes Absolute 0.05 #; Lymphocytes # 1.5 10*3/uL (1.4-4.0); Lymphocytes % 14.5 % (21.2-54.2); Mean Corpuscular HGB Conc 29.5 GM/DL (32-36); Mean Corpuscular Volume 98.1 FL (87-102); Mean Platelet Volume 10.8 FL (9.6-12.0); Monocytes % 6.3 % (1.7-12.7); Neutrophils % 77.3 % (38.7-73.9); Platelet Count 346 T/CUMM (130-400); Red Blood Count 3.11 MC/CUMM (3.8-5.5)
[2019-10-08 05:29] LABS: Calcium 7.8 MG/DL (8.5-10.1); Osmolality,Calculated 300.6 MOS/KG (273-304)
[2019-10-08] MEDS: BUDESONIDE 0.5 MG/2 ML NEB RESP TX SCH ×2 (08:48→20:25)
[2019-10-08 08:54] LABS: ABG Base Excess -0.3 MMOL/L (-2.5-2.5); ABG HCO3 24.1 MMOL/L (20-26); ABG Oxygen Saturation 96.2 % (95-100); ABG PCO2 31.4 MM HG (35-48); ABG PH 7.469 (7.35-7.45); ABG PO2 76.1 MM HG (80-95); Allen Test Positive; Pt O2 Delivery Device Other
[2019-10-08] MEDS: AMIODARONE 200 MG TABLET PEG SCH ×2 (09:40→20:55)
[2019-10-08] MEDS: TRIAMCINOLONE 0.1% CREAM 15 GM TUBE TOP SCH ×2 (09:40→20:56)
[2019-10-08] MEDS: INSULIN GLARGINE 100 UNIT/ML SUBCUT SCH ×2 (09:40→20:55)
[2019-10-08] MEDS: PANTOPRAZOLE 40 MG VIAL IV SCH (09:41)
[2019-10-08] MEDS: MINERAL OIL 30 ML UDCUP PEG SCH (20:55)
[2019-10-09] MEDS: INSULIN LISPRO 100 UNIT/ML SUBCUT SCH ×4 (00:44→19:33)
[2019-10-09] MEDS: ALBUTEROL/IPRATROPIUM 3 ML NEB RESP TX SCH ×4 (02:28→19:37)
[2019-10-09] MEDS: SULFAMETH/TRIMETH INJ 160 MG in DEXTROSE 5% 250 ML IV SCH ×3 (02:52→17:01)
[2019-10-09 05:25] LABS: Calcium 7.8 MG/DL (8.5-10.1); Osmolality,Calculated 296.8 MOS/KG (273-304)
[2019-10-09] MEDS: BUDESONIDE 0.5 MG/2 ML NEB RESP TX SCH ×2 (07:48→19:37)
[2019-10-09] MEDS: AMIODARONE 200 MG TABLET PEG SCH (09:06)
[2019-10-09] MEDS: INSULIN GLARGINE 100 UNIT/ML SUBCUT SCH (09:06)
[2019-10-09] MEDS: TRIAMCINOLONE 0.1% CREAM 15 GM TUBE TOP SCH (09:07)
[2019-10-09] MEDS: PANTOPRAZOLE 40 MG VIAL IV SCH (09:07)
[2019-10-09] MEDS ORDERED: ALBUTEROL 2.5 MG/3 ML NEB RESP TX PRN (11:12)
[2019-10-09] MEDS ORDERED: ALBUTEROL/IPRATROPIUM 3 ML NEB RESP TX SCH (13:00)
[2019-10-09] MEDS ORDERED: cefTRIAXone 2,000 MG in SYRINGE 1 EACH IV SCH (16:00)
[2019-10-09 17:18] VITALS: BP 92/53
[2019-10-09] MEDS ORDERED: BRIMONIDINE 0.15% OPH SOLN 1 DROP/DROPS BOTTLE BOTH EYES SCH (19:00)
[2019-10-09] MEDS ORDERED: LATANOPROST 0.005% OPH SOLN 2.5 ML BOTTLE BOTH EYES SCH (19:00)
[2019-10-09] MEDS ORDERED: TIMOLOL 0.5% OPH SOLN 5 ML BOTTLE BOTH EYES SCH (21:00)
[2019-10-10] MEDS ORDERED: RANITIDINE 150 MG/10 ML 30 ML BOTTLE PEG SCH (09:00)
[2019-10-10] MEDS ORDERED: LEVOTHYROXINE 100 MCG TABLET PEG SCH (09:00)
[2019-10-10] MEDS ORDERED: AMIODARONE 200 MG TABLET PEG SCH (09:00)
[2019-10-10] MEDS ORDERED: INSULIN GLARGINE 15 UNIT SUBCUT SCH (09:00)
== END 2019-10-09 19:42 | DRG 871 ==
LOC: EDUNIT# → EDBD → N.ED 19:55 → N.EDINP 10-03 00:17 → SUATTDRO 10-03 00:30 → N.EDINP 10-03 00:30 → N.5E 10-03 01:40
PROVIDERS: ADMIT Family Medicine; ATTEND Internal Medicine

== ENCOUNTER 2019-11-03 17:05 | Inpatient (IN) ==
[2019-11-03] MEDS ORDERED: SODIUM CHLORIDE 0.9% 1,000 ML IV STA ×3 (17:44→21:14)
[2019-11-03] MEDS ORDERED: ETOMIDATE 20 MG/10 ML VIAL IV ONE (17:45)
[2019-11-03] MEDS ORDERED: ROCURONIUM 100 MG/10 ML VIAL IV ONE (17:46)
[2019-11-03 18:42] LABS: INR 1.1; PT Patient Result 11.6 SECS (9.6-12.2)
[2019-11-03 18:49] LABS: Basophils % 0.1 % (0.0-0.8); Hematocrit 41.7 VOL% (42.0-52.0); Hemoglobin 12.1 GM/DL (14.0-18.0); Immature Granulocytes % 0.3 %; Immature Granulocytes Absolute 0.03 #; Lymphocytes # 1.2 10*3/uL (1.4-4.0); Lymphocytes % 13.5 % (21.2-54.2); Mean Corpuscular Volume 101.7 FL (87-102); Mean Platelet Volume 10.7 FL (9.6-12.0); Neutrophils % 73.1 % (38.7-73.9); Platelet Count 453 T/CUMM (130-400); Red Cell Distribution Width 15.6 % (9.3-17.3); White Blood Count 9.1 T/CUMM (4-12)
[2019-11-03] MEDS ORDERED: VANCOMYCIN INJ 1,000 MG in SODIUM CHLORIDE 0.9% 250 ML IV STA ×2 (18:50→20:38)
[2019-11-03] MEDS ORDERED: PIPERACILLIN/TAZOBACTAM 3,375 MG in SODIUM CHLORIDE 0.9% 100 ML IV STA (18:50)
[2019-11-03 18:53] LABS: Alanine Aminotransferase 121 U/L (16-61); Albumin 2.4 G/DL (3.4-5.0); Alkaline Phosphatase 146 U/L (45-117); Aspartate Amino Transferase 52 U/L (0-37); Blood Urea Nitrogen 89 MG/DL (7-18); Calcium 8.9 MG/DL (8.5-10.1); Osmolality,Calculated 346.4 MOS/KG (273-304); Total Protein 8.7 G/DL (6.4-8.3)
[2019-11-03 18:58] LABS: Estimated Glom Filtration Rate 0 ML/MIN; Glucose 604 MG/DL (74-106); Troponin I 0.152 NG/ML (0.00-0.045)
[2019-11-03] MEDS ORDERED: INSULIN REGULAR 100 UNIT/ML IV STA (19:19)
[2019-11-03 19:29] LABS: Lymphocytes 14 % (20-55); Platelet Estimate Increased; Segmented Neutrophils 73 % (50-85); Total Cells Counted 100
[2019-11-03 19:31] LABS: Macrocytosis Slight; Ovalocytes Slight
[2019-11-03 20:36] LABS: Amorphous Crystals,Urine Occasional /HPF (Few); Apearance,Urine Slightly Hazy (Clear); Bilirubin,Urine Negative (Negative); Blood, Urine Negative (Negative); Glucose,Urine (UA) >=500 mg/dL (Negative); Hyaline Casts,Urine 1 /LPF (0-3); Ketones,Urine Negative (Negative); Mucus,Urine Occasional /LPF (Occasional); Nitrite,Urine Negative (Negative); Protein,Urine 30 MG/DL; RBC,Urine 3 /HPF (0-4); Urine Color Yellow (Yellow); Urine Specific Gravity 1.018 (1.001-1.035); Urine Urobilinogen < 2.0 EU/DL (0.2-1.0)
[2019-11-03] MEDS ORDERED: NOREPINEPHRINE 8 MG in SODIUM CHLORIDE 0.9% 242 ML IV PRN (22:04)
[2019-11-03] MEDS ORDERED: ALBUTEROL 2.5 MG/3 ML NEB RESP TX PRN (23:03)
[2019-11-03] MEDS ORDERED: DEXTROSE 50% 25 GM/50 ML SYRINGE IV PRN (23:11)
[2019-11-03] MEDS ORDERED: GLUCAGON 1 MG VIAL IM PRN (23:11)
[2019-11-03] MEDS ORDERED: ENOXAPARIN 40 MG/0.4 ML SYRINGE SUBCUT SCH (23:30)
[2019-11-04] MEDS ORDERED: BISACODYL 5 MG TABLET PO PRN (00:22)
[2019-11-04] MEDS ORDERED: MAGNESIUM HYDROXIDE SUSP 30 ML UDCUP PEG PRN (00:22)
[2019-11-04] MEDS: ALBUTEROL/IPRATROPIUM 3 ML NEB RESP TX SCH ×4 (01:08→18:04)
[2019-11-04] MEDS: INSULIN REGULAR 100 UNIT/ML SUBCUT SCH ×3 (01:23→17:52)
[2019-11-04] MEDS ORDERED: INSULIN LISPRO 100 UNIT/ML ONE (02:46)
[2019-11-04] MEDS: PIPERACILLIN/TAZOBACTAM 3,375 MG in SODIUM CHLORIDE 0.9% 100 ML IV SCH ×3 (02:52→18:57)
[2019-11-04] MEDS: INSULIN LISPRO 100 UNIT/ML SUBCUT SCH ×6 (03:06→12:51)
[2019-11-04] MEDS ORDERED: PHENYLEPHRINE INJ 160 MG in SODIUM CHLORIDE 0.9% 234 ML IV PRN (03:45)
[2019-11-04] MEDS ORDERED: SODIUM CHLORIDE 0.9% 1,000 ML IV ONE (03:45)
[2019-11-04 04:00] LABS: ABG Base Excess -6.7 MMOL/L (-2.5-2.5); ABG Oxygen Saturation 99.7 % (95-100); ABG PH 7.404 (7.35-7.45); ABG TCO2 15.2 MMOL/L (23-27); Allen Test Positive; Pt O2 Delivery Device Ventilator
[2019-11-04 04:22] LABS: Albumin 1.8 G/DL (3.4-5.0); Bilirubin,Total 0.4 MG/DL (0.2-1.0); Calcium 7.2 MG/DL (8.5-10.1); Osmolality,Calculated 343.7 MOS/KG (273-304); Total Protein 6.6 G/DL (6.4-8.3)
[2019-11-04 04:46] LABS: Basophils % 0.2 % (0.0-0.8); Hematocrit 33.8 VOL% (42.0-52.0); Hemoglobin 9.6 GM/DL (14.0-18.0); Immature Granulocytes Absolute 0.12 #; Lymphocytes # 1.5 10*3/uL (1.4-4.0); Lymphocytes % 12.3 % (21.2-54.2); Mean Corpuscular HGB Conc 28.4 GM/DL (32-36); Mean Corpuscular Volume 105.3 FL (87-102); Mean Platelet Volume 10.5 FL (9.6-12.0); Monocytes % 11.1 % (1.7-12.7); Neutrophils % 75.4 % (38.7-73.9); Platelet Count 367 T/CUMM (130-400); Red Blood Count 3.21 MC/CUMM (3.8-5.5); Red Cell Distribution Width 15.7 % (9.3-17.3)
[2019-11-04 04:51] LABS: Band Neutrophils 14 % (0-10); Lymphocytes 13 % (20-55); Platelet Estimate Normal; Segmented Neutrophils 68 % (50-85); Total Cells Counted 100
[2019-11-04 04:52] LABS: Anisocytosis Slight; Macrocytosis Slight
[2019-11-04 04:53] LABS: Polychromasia Slight
[2019-11-04] MEDS ORDERED: POTASSIUM CHLORIDE RIDER 20 MEQ in PREMIX 1 EACH IV PRN (05:17)
[2019-11-04] MEDS: POTASSIUM CHLORIDE 20 MEQ/15 ML UDCUP PER TUBE PRN ×2 (05:42→17:43)
[2019-11-04] MEDS: LEVOTHYROXINE 125 MCG TABLET PEG SCH (05:42)
[2019-11-04] MEDS: AMIODARONE 200 MG TABLET PEG SCH (09:43)
[2019-11-04] MEDS: PANTOPRAZOLE 40 MG TABLET PO SCH (09:43)
[2019-11-04] MEDS: ASPIRIN CHEW 81 MG TABLET PO SCH (09:43)
[2019-11-04] MEDS: SODIUM CHLORIDE 0.9% 1,000 ML IV SCH ×2 (09:45→15:52)
[2019-11-04] MEDS ORDERED: INSULIN REGULAR DRIP 100 ML IV PRN (10:04)
[2019-11-04] MEDS: TIMOLOL 0.5% OPH SOLN 5 ML BOTTLE BOTH EYES SCH ×2 (11:27→21:45)
[2019-11-04] MEDS: NOREPINEPHRINE 16 MG in SODIUM CHLORIDE 0.9% 234 ML IV PRN ×2 (11:27→21:46)
[2019-11-04] MEDS ORDERED: INSULIN GLARGINE 100 UNIT/ML SUBCUT ONE ×2 (16:06→16:11)
[2019-11-04] MEDS ORDERED: DEXTROSE 50% 25 GM/50 ML VIAL IV PRN (16:07)
[2019-11-04] MEDS ORDERED: GLUCAGON 1 MG VIAL IM PRN (16:07)
[2019-11-04 16:42] LABS: Calcium 7.9 MG/DL (8.5-10.1); Osmolality,Calculated 329.6 MOS/KG (273-304)
[2019-11-04] MEDS ORDERED: VANCOMYCIN INJ 1,000 MG in SODIUM CHLORIDE 0.9% 250 ML IV SCH (17:00)
[2019-11-04] MEDS: SODIUM CHLORIDE 0.45% 1,000 ML IV SCH (17:42)
[2019-11-04] MEDS: HEPARIN 5,000 UNIT/1 ML VIAL SUBCUT SCH (18:28)
[2019-11-04] MEDS: MINERAL OIL 30 ML UDCUP PEG SCH (21:45)
[2019-11-04] MEDS: POLYVINYL ALCOHOL 1.4% OPH SOLN 15 ML BOTTLE BOTH EYES PRN (21:45)
[2019-11-04] MEDS: LATANOPROST 0.005% OPH SOLN 2.5 ML BOTTLE BOTH EYES SCH (21:50)
[2019-11-05] MEDS: ALBUTEROL/IPRATROPIUM 3 ML NEB RESP TX SCH ×4 (00:49→19:11)
[2019-11-05] MEDS: INSULIN REGULAR 100 UNIT/ML SUBCUT SCH ×4 (01:07→17:54)
[2019-11-05] MEDS: SODIUM CHLORIDE 0.45% 1,000 ML IV SCH ×2 (03:17→13:17)
[2019-11-05] MEDS: PIPERACILLIN/TAZOBACTAM 3,375 MG in SODIUM CHLORIDE 0.9% 100 ML IV SCH ×3 (03:18→18:02)
[2019-11-05 04:16] LABS: ABG Base Excess -5.2 MMOL/L (-2.5-2.5); ABG HCO3 20.1 MMOL/L (20-26); ABG Oxygen Saturation 98.5 % (95-100); ABG PCO2 28.7 MM HG (35-48); ABG PH 7.415 (7.35-7.45); ABG TCO2 16.8 MMOL/L (23-27); Pt O2 Delivery Device Ventilator
[2019-11-05 05:08] LABS: Alanine Aminotransferase 71 U/L (16-61); Albumin 1.8 G/DL (3.4-5.0); Alkaline Phosphatase 100 U/L (45-117); Aspartate Amino Transferase 36 U/L (0-37); Bilirubin,Total < 0.39 MG/DL (0.2-1.0); Blood Urea Nitrogen 43 MG/DL (7-18); Calcium 7.9 MG/DL (8.5-10.1); Estimated Glom Filtration Rate 68 ML/MIN; Glucose 294 MG/DL (74-106); Osmolality,Calculated 328.3 MOS/KG (273-304); Total Protein 6.7 G/DL (6.4-8.3)
[2019-11-05 05:15] LABS: Basophils % 0.2 % (0.0-0.8); Hematocrit 32.3 VOL% (42.0-52.0); Hemoglobin 9.1 GM/DL (14.0-18.0); Immature Granulocytes Absolute 0.18 #; Lymphocytes # 3.1 10*3/uL (1.4-4.0); Lymphocytes % 17.6 % (21.2-54.2); Mean Corpuscular HGB Conc 28.2 GM/DL (32-36); Mean Corpuscular Volume 104.9 FL (87-102); Mean Platelet Volume 10.1 FL (9.6-12.0); Monocytes % 9.6 % (1.7-12.7); NRBC # 0.02 10*3/uL; Neutrophils % 71.6 % (38.7-73.9); Platelet Count 366 T/CUMM (130-400); Red Blood Count 3.08 MC/CUMM (3.8-5.5); Red Cell Distribution Width 15.8 % (9.3-17.3); White Blood Count 17.9 T/CUMM (4-12)
[2019-11-05 05:19] LABS: Band Neutrophils 5 % (0-10); Lymphocytes 20 % (20-55); Segmented Neutrophils 67 % (50-85); Total Cells Counted 100
[2019-11-05] MEDS: HEPARIN 5,000 UNIT/1 ML VIAL SUBCUT SCH ×2 (05:19→17:55)
[2019-11-05] MEDS: LEVOTHYROXINE 125 MCG TABLET PEG SCH (05:19)
[2019-11-05 05:20] LABS: Anisocytosis 1+; Hypochromasia Slight; Platelet Estimate Normal
[2019-11-05] MEDS: NOREPINEPHRINE 16 MG in SODIUM CHLORIDE 0.9% 234 ML IV PRN (06:18)
[2019-11-05] MEDS ORDERED: INSULIN GLARGINE 100 UNIT/ML SUBCUT SCH (09:00)
[2019-11-05] MEDS: AMIODARONE 200 MG TABLET PEG SCH (09:26)
[2019-11-05] MEDS: PANTOPRAZOLE 40 MG TABLET PO SCH (09:26)
[2019-11-05] MEDS: ASPIRIN CHEW 81 MG TABLET PO SCH (09:26)
[2019-11-05] MEDS: TIMOLOL 0.5% OPH SOLN 5 ML BOTTLE BOTH EYES SCH ×2 (09:49→20:55)
[2019-11-05] MEDS: DEXTROSE 5% 1,000 ML IV SCH (15:01)
[2019-11-05] MEDS: DOXYCYCLINE HYCLATE INJ 100 MG in SODIUM CHLORIDE 0.9% 100 ML IV SCH (15:01)
[2019-11-05] MEDS: ACETAMINOPHEN 325 MG TABLET PO PRN (20:36)
[2019-11-05] MEDS: MINERAL OIL 30 ML UDCUP PEG SCH (20:37)
[2019-11-05] MEDS: LATANOPROST 0.005% OPH SOLN 2.5 ML BOTTLE BOTH EYES SCH (20:54)
[2019-11-05] MEDS: INSULIN GLARGINE 100 UNIT/ML SUBCUT SCH (21:45)
[2019-11-06] MEDS: ALBUTEROL/IPRATROPIUM 3 ML NEB RESP TX SCH ×4 (00:09→19:55)
[2019-11-06] MEDS: INSULIN REGULAR 100 UNIT/ML SUBCUT SCH ×5 (00:17→23:45)
[2019-11-06] MEDS: DEXTROSE 5% 1,000 ML IV SCH (00:55)
[2019-11-06] MEDS: DOXYCYCLINE HYCLATE INJ 100 MG in SODIUM CHLORIDE 0.9% 100 ML IV SCH ×2 (03:41→14:51)
[2019-11-06] MEDS: PIPERACILLIN/TAZOBACTAM 3,375 MG in SODIUM CHLORIDE 0.9% 100 ML IV SCH ×2 (03:52→11:15)
[2019-11-06 04:00] LABS: ABG Base Excess -3.4 MMOL/L (-2.5-2.5); ABG HCO3 21.6 MMOL/L (20-26); ABG Oxygen Saturation 99.2 % (95-100); ABG PCO2 33.2 MM HG (35-48); Pt O2 Delivery Device Ventilator
[2019-11-06 04:36] LABS: Basophils % 0.2 % (0.0-0.8); Eosinophils # 0.1 10*3/uL (0.0-0.87); Eosinophils % 0.6 % (0.00-10.9); Hematocrit 26.9 VOL% (42.0-52.0); Hemoglobin 7.7 GM/DL (14.0-18.0); Immature Granulocytes % 0.7 %; Immature Granulocytes Absolute 0.11 #; Lymphocytes # 3.1 10*3/uL (1.4-4.0); Mean Corpuscular HGB Conc 28.6 GM/DL (32-36); Mean Corpuscular Volume 104.7 FL (87-102); Mean Platelet Volume 11.1 FL (9.6-12.0); Monocytes % 7.5 % (1.7-12.7); NRBC # 0.04 10*3/uL; Platelet Count 311 T/CUMM (130-400); Red Blood Count 2.57 MC/CUMM (3.8-5.5); Red Cell Distribution Width 15.8 % (9.3-17.3); White Blood Count 15.4 T/CUMM (4-12)
[2019-11-06 04:55] LABS: Albumin 1.5 G/DL (3.4-5.0); Bilirubin,Total 0.6 MG/DL (0.2-1.0); Calcium 7.4 MG/DL (8.5-10.1); Osmolality,Calculated 316.9 MOS/KG (273-304); Total Protein 5.3 G/DL (6.4-8.3)
[2019-11-06 04:56] LABS: Calcium 7.7 MG/DL (8.5-10.1); Osmolality,Calculated 314.1 MOS/KG (273-304); Prealbumin 11.4 MG/DL (20-40)
[2019-11-06 05:05] LABS: Band Neutrophils 1 % (0-10); Eosinophils 1 % (0-10); Hypochromasia 1+; Lymphocytes 21 % (20-55); Platelet Estimate Adequate; Segmented Neutrophils 73 % (50-85); Total Cells Counted 100
[2019-11-06] MEDS: HEPARIN 5,000 UNIT/1 ML VIAL SUBCUT SCH ×2 (05:33→19:41)
[2019-11-06] MEDS: LEVOTHYROXINE 125 MCG TABLET PEG SCH (05:33)
[2019-11-06] MEDS: NOREPINEPHRINE 16 MG in SODIUM CHLORIDE 0.9% 234 ML IV PRN (05:40)
[2019-11-06] MEDS: SODIUM CHLORIDE 0.45% 1,000 ML IV SCH ×2 (08:46→19:28)
[2019-11-06] MEDS: AMIODARONE 200 MG TABLET PEG SCH (09:19)
[2019-11-06] MEDS: ASPIRIN CHEW 81 MG TABLET PO SCH (09:19)
[2019-11-06] MEDS: INSULIN GLARGINE 100 UNIT/ML SUBCUT SCH ×2 (09:20→20:37)
[2019-11-06] MEDS: TIMOLOL 0.5% OPH SOLN 5 ML BOTTLE BOTH EYES SCH ×2 (09:21→20:39)
[2019-11-06] MEDS: PANTOPRAZOLE 40 MG TABLET PO SCH (09:21)
[2019-11-06] MEDS: MENTHOL/ZINC OXIDE OINT 71 GM JAR TOP SCH ×2 (12:15→20:39)
[2019-11-06] MEDS: POTASSIUM PHOS/SOD PHOS POWDER 250 MG PACK PEG SCH (20:37)
[2019-11-06] MEDS: MINERAL OIL 30 ML UDCUP PEG SCH (20:38)
[2019-11-06] MEDS: LATANOPROST 0.005% OPH SOLN 2.5 ML BOTTLE BOTH EYES SCH (20:39)
[2019-11-07] MEDS: ALBUTEROL/IPRATROPIUM 3 ML NEB RESP TX SCH ×5 (00:50→23:58)
[2019-11-07] MEDS: DOXYCYCLINE HYCLATE INJ 100 MG in SODIUM CHLORIDE 0.9% 100 ML IV SCH ×2 (02:16→15:26)
[2019-11-07 03:11] LABS: ABG Base Excess -0.7 MMOL/L (-2.5-2.5); ABG HCO3 23.8 MMOL/L (20-26); ABG Oxygen Saturation 98.8 % (95-100); ABG PCO2 32.8 MM HG (35-48); ABG PH 7.449 (7.35-7.45); ABG TCO2 20.8 MMOL/L (23-27); Allen Test Positive; Pt O2 Delivery Device Ventilator
[2019-11-07 03:30] LABS: Basophils % 0.2 % (0.0-0.8); Eosinophils # 0.7 10*3/uL (0.0-0.87); Eosinophils % 4.8 % (0.00-10.9); Hematocrit 28.1 VOL% (42.0-52.0); Hemoglobin 8.2 GM/DL (14.0-18.0); Immature Granulocytes % 0.7 %; Lymphocytes # 3.2 10*3/uL (1.4-4.0); Lymphocytes % 23.6 % (21.2-54.2); Mean Corpuscular HGB Conc 29.2 GM/DL (32-36); Mean Corpuscular Volume 101.4 FL (87-102); Mean Platelet Volume 10.7 FL (9.6-12.0); Monocytes % 5.1 % (1.7-12.7); NRBC # 0.02 10*3/uL; Neutrophils % 65.6 % (38.7-73.9); Platelet Count 308 T/CUMM (130-400); Red Blood Count 2.77 MC/CUMM (3.8-5.5); White Blood Count 13.4 T/CUMM (4-12)
[2019-11-07 03:50] LABS: Band Neutrophils 1 % (0-10); Eosinophils 8 % (0-10); Lymphocytes 19 % (20-55); Platelet Estimate Normal; Segmented Neutrophils 70 % (50-85); Total Cells Counted 100
[2019-11-07 03:51] LABS: Macrocytosis Slight
[2019-11-07 03:52] LABS: Polychromasia Slight
[2019-11-07] MEDS: SODIUM CHLORIDE 0.45% 1,000 ML IV SCH ×3 (05:42→15:33)
[2019-11-07] MEDS: HEPARIN 5,000 UNIT/1 ML VIAL SUBCUT SCH ×2 (05:42→18:34)
[2019-11-07] MEDS: LEVOTHYROXINE 125 MCG TABLET PEG SCH (05:42)
[2019-11-07] MEDS: INSULIN REGULAR 100 UNIT/ML SUBCUT SCH ×4 (05:42→23:13)
[2019-11-07] MEDS ORDERED: DEXTROSE 10% 250 ML IV SCH ×2 (06:00→18:30)
[2019-11-07] MEDS: ASPIRIN CHEW 81 MG TABLET PO SCH (09:08)
[2019-11-07] MEDS: AMIODARONE 200 MG TABLET PEG SCH (09:08)
[2019-11-07] MEDS: OMEPRAZOLE ODT 20 MG TABLET NG SCH (09:08)
[2019-11-07] MEDS: POTASSIUM PHOS/SOD PHOS POWDER 250 MG PACK PEG SCH ×2 (09:08→20:51)
[2019-11-07] MEDS: MENTHOL/ZINC OXIDE OINT 71 GM JAR TOP SCH ×2 (09:09→20:50)
[2019-11-07] MEDS: TIMOLOL 0.5% OPH SOLN 5 ML BOTTLE BOTH EYES SCH ×2 (09:10→20:52)
[2019-11-07] MEDS: INSULIN GLARGINE 100 UNIT/ML SUBCUT SCH (10:35)
[2019-11-07] MEDS: NOREPINEPHRINE 16 MG in SODIUM CHLORIDE 0.9% 234 ML IV PRN (10:56)
[2019-11-07] MEDS ORDERED: DEXTROSE 10% 250 ML IV ONE (18:18)
[2019-11-07] MEDS: DEXTROSE 5% NACL 0.45% 1,000 ML IV SCH (18:31)
[2019-11-07] MEDS: MINERAL OIL 30 ML UDCUP PEG SCH (20:50)
[2019-11-07] MEDS: POLYVINYL ALCOHOL 1.4% OPH SOLN 15 ML BOTTLE BOTH EYES PRN (20:51)
[2019-11-07] MEDS: LATANOPROST 0.005% OPH SOLN 2.5 ML BOTTLE BOTH EYES SCH (20:52)
[2019-11-07] MEDS: ACETAMINOPHEN 325 MG TABLET PO PRN (20:55)
[2019-11-07] MEDS ORDERED: INSULIN GLARGINE 100 UNIT/ML SUBCUT SCH (21:00)
[2019-11-08] MEDS: DOXYCYCLINE HYCLATE INJ 100 MG in SODIUM CHLORIDE 0.9% 100 ML IV SCH ×2 (03:26→15:16)
[2019-11-08] MEDS: DEXTROSE 5% NACL 0.45% 1,000 ML IV SCH (03:26)
[2019-11-08 03:44] LABS: ABG Base Excess -3.6 MMOL/L (-2.5-2.5); ABG HCO3 19.8 MMOL/L (20-26); ABG PCO2 29.2 MM HG (35-48); ABG PO2 109.8 MM HG (80-95); ABG TCO2 20.7 MMOL/L (23-27); Allen Test Positive; Pt O2 Delivery Device Ventilator
[2019-11-08 05:40] LABS: Basophils % 0.1 % (0.0-0.8); Eosinophils # 0.4 10*3/uL (0.0-0.87); Eosinophils % 3.6 % (0.00-10.9); Hemoglobin 7.1 GM/DL (14.0-18.0); Immature Granulocytes % 0.7 %; Immature Granulocytes Absolute 0.07 #; Lymphocytes # 1.8 10*3/uL (1.4-4.0); Mean Corpuscular HGB Conc 29.6 GM/DL (32-36); Mean Corpuscular Volume 101.3 FL (87-102); Mean Platelet Volume 10.9 FL (9.6-12.0); NRBC # 0.02 10*3/uL; Neutrophils % 71.6 % (38.7-73.9); Platelet Count 280 T/CUMM (130-400); Red Blood Count 2.37 MC/CUMM (3.8-5.5); Red Cell Distribution Width 15.4 % (9.3-17.3); White Blood Count 9.7 T/CUMM (4-12)
[2019-11-08 05:51] LABS: Calcium 7.8 MG/DL (8.5-10.1)
[2019-11-08] MEDS: INSULIN REGULAR 100 UNIT/ML SUBCUT SCH ×3 (05:55→19:18)
[2019-11-08 06:01] LABS: Band Neutrophils 1 % (0-10); Eosinophils 5 % (0-10); Hypochromasia 1+; Lymphocytes 22 % (20-55); Platelet Estimate Adequate; Segmented Neutrophils 67 % (50-85); Total Cells Counted 100
[2019-11-08] MEDS: POTASSIUM CHLORIDE 20 MEQ/15 ML UDCUP PER TUBE PRN (06:16)
[2019-11-08] MEDS: HEPARIN 5,000 UNIT/1 ML VIAL SUBCUT SCH ×2 (06:16→19:23)
[2019-11-08] MEDS: LEVOTHYROXINE 125 MCG TABLET PEG SCH (06:16)
[2019-11-08] MEDS: ALBUTEROL/IPRATROPIUM 3 ML NEB RESP TX SCH ×3 (07:08→19:58)
[2019-11-08] MEDS ORDERED: MAGNESIUM SULF RIDER 2 GM in PREMIX 1 EACH IV ONE (08:29)
[2019-11-08] MEDS: AMIODARONE 200 MG TABLET PEG SCH (09:07)
[2019-11-08] MEDS: TIMOLOL 0.5% OPH SOLN 5 ML BOTTLE BOTH EYES SCH ×2 (09:07→21:19)
[2019-11-08] MEDS: MENTHOL/ZINC OXIDE OINT 71 GM JAR TOP SCH ×2 (09:07→21:19)
[2019-11-08] MEDS: ASPIRIN CHEW 81 MG TABLET PO SCH (09:08)
[2019-11-08] MEDS: POTASSIUM PHOS/SOD PHOS POWDER 250 MG PACK PEG SCH (09:08)
[2019-11-08] MEDS: OMEPRAZOLE ODT 20 MG TABLET NG SCH (09:08)
[2019-11-08] MEDS: DEXTROSE 5% LACTATED RINGERS 1,000 ML IV SCH ×2 (09:14→22:34)
[2019-11-08] MEDS: POTASSIUM CHLORIDE 20 MEQ/15 ML UDCUP PER TUBE SCH ×2 (09:20→11:38)
[2019-11-08] MEDS: INSULIN GLARGINE 100 UNIT/ML SUBCUT SCH (21:18)
[2019-11-08] MEDS: MINERAL OIL 30 ML UDCUP PEG SCH (21:18)
[2019-11-08] MEDS: LATANOPROST 0.005% OPH SOLN 2.5 ML BOTTLE BOTH EYES SCH (21:19)
[2019-11-09] MEDS: INSULIN REGULAR 100 UNIT/ML SUBCUT SCH ×4 (00:13→18:08)
[2019-11-09] MEDS: ALBUTEROL/IPRATROPIUM 3 ML NEB RESP TX SCH ×4 (00:24→19:31)
[2019-11-09] MEDS: DOXYCYCLINE HYCLATE INJ 100 MG in SODIUM CHLORIDE 0.9% 100 ML IV SCH ×2 (03:33→15:21)
[2019-11-09] MEDS: MORPHINE 4 MG/1 ML VIAL IV PRN ×2 (04:28→12:37)
[2019-11-09 05:11] LABS: ABG Base Excess -1.8 MMOL/L (-2.5-2.5); ABG HCO3 22.9 MMOL/L (20-26); ABG Oxygen Saturation 99.2 % (95-100); ABG PH 7.431 (7.35-7.45); ABG TCO2 20.5 MMOL/L (23-27); Pt O2 Delivery Device Ventilator
[2019-11-09 05:33] LABS: Basophils % 0.1 % (0.0-0.8); Eosinophils # 0.3 10*3/uL (0.0-0.87); Eosinophils % 3.3 % (0.00-10.9); Hemoglobin 6.8 GM/DL (14.0-18.0); Immature Granulocytes % 1.3 %; Immature Granulocytes Absolute 0.11 #; Lymphocytes % 24.2 % (21.2-54.2); Mean Corpuscular HGB Conc 28.3 GM/DL (32-36); Mean Corpuscular Volume 105.3 FL (87-102); Mean Platelet Volume 10.6 FL (9.6-12.0); Monocytes % 6.6 % (1.7-12.7); NRBC # 0.02 10*3/uL; Neutrophils % 64.5 % (38.7-73.9); Platelet Count 320 T/CUMM (130-400); Red Blood Count 2.28 MC/CUMM (3.8-5.5); Red Cell Distribution Width 15.7 % (9.3-17.3); White Blood Count 8.4 T/CUMM (4-12)
[2019-11-09 06:08] LABS: Calcium 7.9 MG/DL (8.5-10.1); Osmolality,Calculated 299.4 MOS/KG (273-304)
[2019-11-09] MEDS: LEVOTHYROXINE 125 MCG TABLET PEG SCH (06:08)
[2019-11-09] MEDS: HEPARIN 5,000 UNIT/1 ML VIAL SUBCUT SCH ×2 (06:08→17:19)
[2019-11-09] MEDS ORDERED: FUROSEMIDE 40 MG/4 ML VIAL IV ONE (07:41)
[2019-11-09] MEDS ORDERED: SODIUM CHLORIDE 0.9% 1,000 ML IV PRN (08:30)
[2019-11-09] MEDS: OMEPRAZOLE ODT 20 MG TABLET NG SCH (09:09)
[2019-11-09] MEDS: ASPIRIN CHEW 81 MG TABLET PO SCH (09:09)
[2019-11-09] MEDS: AMIODARONE 200 MG TABLET PEG SCH (09:09)
[2019-11-09] MEDS: MENTHOL/ZINC OXIDE OINT 71 GM JAR TOP SCH ×2 (09:10→20:32)
[2019-11-09] MEDS: TIMOLOL 0.5% OPH SOLN 5 ML BOTTLE BOTH EYES SCH ×2 (09:10→20:29)
[2019-11-09] MEDS: INSULIN GLARGINE 100 UNIT/ML SUBCUT SCH (20:28)
[2019-11-09] MEDS: MINERAL OIL 30 ML UDCUP PEG SCH (20:29)
[2019-11-09] MEDS: LATANOPROST 0.005% OPH SOLN 2.5 ML BOTTLE BOTH EYES SCH (20:30)
[2019-11-10] MEDS: INSULIN REGULAR 100 UNIT/ML SUBCUT SCH ×4 (00:15→17:40)
[2019-11-10] MEDS: ALBUTEROL/IPRATROPIUM 3 ML NEB RESP TX SCH ×4 (00:54→18:56)
[2019-11-10] MEDS: DOXYCYCLINE HYCLATE INJ 100 MG in SODIUM CHLORIDE 0.9% 100 ML IV SCH ×2 (03:23→15:07)
[2019-11-10 04:08] LABS: Allen Test Positive; Pt O2 Delivery Device Ventilator
[2019-11-10 04:11] LABS: ABG HCO3 25.3 MMOL/L (20-26); ABG Oxygen Saturation 97.6 % (95-100); ABG PCO2 34.6 MM HG (35-48); ABG PO2 86.2 MM HG (80-95); ABG TCO2 22.7 MMOL/L (23-27)
[2019-11-10 04:44] LABS: Basophils % 0.1 % (0.0-0.8); Eosinophils # 0.3 10*3/uL (0.0-0.87); Eosinophils % 3.4 % (0.00-10.9); Hematocrit 28.4 VOL% (42.0-52.0); Immature Granulocytes % 1.7 %; Immature Granulocytes Absolute 0.15 #; Lymphocytes # 2.4 10*3/uL (1.4-4.0); Lymphocytes % 27.9 % (21.2-54.2); Mean Corpuscular HGB Conc 29.2 GM/DL (32-36); Mean Corpuscular Volume 102.2 FL (87-102); Mean Platelet Volume 10.7 FL (9.6-12.0); Monocytes % 7.2 % (1.7-12.7); Neutrophils % 59.7 % (38.7-73.9); Platelet Count 341 T/CUMM (130-400); Red Cell Distribution Width 16.1 % (9.3-17.3); White Blood Count 8.6 T/CUMM (4-12)
[2019-11-10 05:04] LABS: Hemoglobin 8.3 GM/DL (14.0-18.0); Red Blood Count 2.78 MC/CUMM (3.8-5.5)
[2019-11-10 05:10] LABS: Calcium 8.3 MG/DL (8.5-10.1)
[2019-11-10] MEDS: LEVOTHYROXINE 125 MCG TABLET PEG SCH (05:35)
[2019-11-10] MEDS: HEPARIN 5,000 UNIT/1 ML VIAL SUBCUT SCH ×2 (05:35→17:48)
[2019-11-10] MEDS: FUROSEMIDE 40 MG/4 ML VIAL IV SCH (09:04)
[2019-11-10] MEDS: POTASSIUM CHLORIDE 20 MEQ/15 ML UDCUP PER TUBE PRN (09:04)
[2019-11-10] MEDS: MORPHINE 4 MG/1 ML VIAL IV PRN ×5 (09:04→18:53)
[2019-11-10] MEDS: AMIODARONE 200 MG TABLET PEG SCH (09:05)
[2019-11-10] MEDS: ASPIRIN CHEW 81 MG TABLET PO SCH (09:06)
[2019-11-10] MEDS: MENTHOL/ZINC OXIDE OINT 71 GM JAR TOP SCH ×2 (09:06→21:13)
[2019-11-10] MEDS: OMEPRAZOLE ODT 20 MG TABLET NG SCH (09:06)
[2019-11-10] MEDS: TIMOLOL 0.5% OPH SOLN 5 ML BOTTLE BOTH EYES SCH ×2 (09:07→21:13)
[2019-11-10] MEDS: INSULIN GLARGINE 100 UNIT/ML SUBCUT SCH (21:13)
[2019-11-10] MEDS: LATANOPROST 0.005% OPH SOLN 2.5 ML BOTTLE BOTH EYES SCH (21:13)
[2019-11-10] MEDS: MINERAL OIL 30 ML UDCUP PEG SCH (21:13)
[2019-11-11] MEDS: INSULIN REGULAR 100 UNIT/ML SUBCUT SCH ×4 (00:16→19:04)
[2019-11-11] MEDS: ALBUTEROL/IPRATROPIUM 3 ML NEB RESP TX SCH ×4 (00:40→18:56)
[2019-11-11 03:08] LABS: ABG Base Excess 3.1 MMOL/L (-2.5-2.5); ABG HCO3 27.2 MMOL/L (20-26); ABG Oxygen Saturation 98.8 % (95-100); ABG PCO2 35.8 MM HG (35-48); ABG PH 7.478 (7.35-7.45); ABG TCO2 24.3 MMOL/L (23-27); Allen Test Positive; Pt O2 Delivery Device Ventilator
[2019-11-11] MEDS: DOXYCYCLINE HYCLATE INJ 100 MG in SODIUM CHLORIDE 0.9% 100 ML IV SCH (03:36)
[2019-11-11 04:42] LABS: Basophils % 0.2 % (0.0-0.8); Eosinophils # 0.4 10*3/uL (0.0-0.87); Eosinophils % 4.2 % (0.00-10.9); Hematocrit 29.7 VOL% (42.0-52.0); Hemoglobin 8.7 GM/DL (14.0-18.0); Immature Granulocytes % 2.6 %; Immature Granulocytes Absolute 0.22 #; Lymphocytes # 2.6 10*3/uL (1.4-4.0); Lymphocytes % 30.7 % (21.2-54.2); Mean Corpuscular HGB Conc 29.3 GM/DL (32-36); Mean Corpuscular Volume 101.4 FL (87-102); Mean Platelet Volume 10.1 FL (9.6-12.0); Monocytes % 9.1 % (1.7-12.7); NRBC # 0.03 10*3/uL; Neutrophils % 53.2 % (38.7-73.9); Platelet Count 424 T/CUMM (130-400); Red Blood Count 2.93 MC/CUMM (3.8-5.5); Red Cell Distribution Width 16.1 % (9.3-17.3); White Blood Count 8.6 T/CUMM (4-12)
[2019-11-11 05:18] LABS: Calcium 8.7 MG/DL (8.5-10.1); Osmolality,Calculated 294.1 MOS/KG (273-304)
[2019-11-11] MEDS: LEVOTHYROXINE 125 MCG TABLET PEG SCH (06:40)
[2019-11-11] MEDS: HEPARIN 5,000 UNIT/1 ML VIAL SUBCUT SCH ×2 (07:01→19:04)
[2019-11-11] MEDS: MORPHINE 4 MG/1 ML VIAL IV PRN ×4 (07:56→19:05)
[2019-11-11] MEDS: AMIODARONE 200 MG TABLET PEG SCH (08:06)
[2019-11-11] MEDS: ASPIRIN CHEW 81 MG TABLET PO SCH (08:06)
[2019-11-11] MEDS: FUROSEMIDE 40 MG/4 ML VIAL IV SCH ×2 (08:06→16:51)
[2019-11-11] MEDS: OMEPRAZOLE ODT 20 MG TABLET NG SCH (08:06)
[2019-11-11] MEDS: TIMOLOL 0.5% OPH SOLN 5 ML BOTTLE BOTH EYES SCH ×2 (08:08→20:09)
[2019-11-11] MEDS: MENTHOL/ZINC OXIDE OINT 71 GM JAR TOP SCH ×2 (09:20→20:12)
[2019-11-11] MEDS: SODIUM CHLORIDE 0.9% IV SCH (14:55)
[2019-11-11] MEDS: AMIKACIN IV SCH (14:55)
[2019-11-11] MEDS: INSULIN GLARGINE 100 UNIT/ML SUBCUT SCH (20:07)
[2019-11-11] MEDS: LATANOPROST 0.005% OPH SOLN 2.5 ML BOTTLE BOTH EYES SCH (20:08)
[2019-11-11] MEDS: MINERAL OIL 30 ML UDCUP PEG SCH (20:17)
[2019-11-12] MEDS: INSULIN REGULAR 100 UNIT/ML SUBCUT SCH ×4 (00:25→18:11)
[2019-11-12] MEDS: ALBUTEROL/IPRATROPIUM 3 ML NEB RESP TX SCH ×4 (01:19→19:31)
[2019-11-12 03:31] LABS: Allen Test Positive
[2019-11-12 03:32] LABS: ABG Base Excess 7.1 MMOL/L (-2.5-2.5); ABG HCO3 30.8 MMOL/L (20-26); ABG Oxygen Saturation 92.7 % (95-100); ABG PCO2 40.4 MM HG (35-48); ABG PH 7.493 (7.35-7.45); ABG PO2 57.7 MM HG (80-95); ABG TCO2 28.3 MMOL/L (23-27)
[2019-11-12] MEDS: MORPHINE 4 MG/1 ML VIAL IV PRN ×6 (05:50→22:11)
[2019-11-12 06:12] LABS: Basophils % 0.1 % (0.0-0.8); Eosinophils # 0.3 10*3/uL (0.0-0.87); Eosinophils % 2.8 % (0.00-10.9); Hematocrit 31.5 VOL% (42.0-52.0); Hemoglobin 9.5 GM/DL (14.0-18.0); Immature Granulocytes Absolute 0.18 #; Lymphocytes # 2.9 10*3/uL (1.4-4.0); Lymphocytes % 31.8 % (21.2-54.2); Mean Corpuscular HGB Conc 30.2 GM/DL (32-36); Mean Platelet Volume 9.9 FL (9.6-12.0); Monocytes % 9.3 % (1.7-12.7); NRBC # 0.02 10*3/uL; Platelet Count 539 T/CUMM (130-400); Red Blood Count 3.15 MC/CUMM (3.8-5.5); White Blood Count 9.1 T/CUMM (4-12)
[2019-11-12 06:15] LABS: Osmolality,Calculated 286.7 MOS/KG (273-304)
[2019-11-12] MEDS: HEPARIN 5,000 UNIT/1 ML VIAL SUBCUT SCH ×2 (06:33→18:03)
[2019-11-12] MEDS: LEVOTHYROXINE 125 MCG TABLET PEG SCH (06:34)
[2019-11-12] MEDS: FUROSEMIDE 40 MG/4 ML VIAL IV SCH ×2 (08:22→16:32)
[2019-11-12] MEDS: MENTHOL/ZINC OXIDE OINT 71 GM JAR TOP SCH ×2 (09:29→20:31)
[2019-11-12] MEDS: TIMOLOL 0.5% OPH SOLN 5 ML BOTTLE BOTH EYES SCH ×2 (09:29→20:31)
[2019-11-12] MEDS: ASPIRIN CHEW 81 MG TABLET PO SCH (09:29)
[2019-11-12] MEDS: AMIODARONE 200 MG TABLET PEG SCH (09:29)
[2019-11-12] MEDS: OMEPRAZOLE ODT 20 MG TABLET NG SCH (09:29)
[2019-11-12] MEDS: POTASSIUM CHLORIDE 20 MEQ/15 ML UDCUP PER TUBE PRN (10:59)
[2019-11-12] MEDS: AMIKACIN IV SCH (14:23)
[2019-11-12] MEDS: SODIUM CHLORIDE 0.9% IV SCH (14:23)
[2019-11-12] MEDS: INSULIN GLARGINE 100 UNIT/ML SUBCUT SCH (20:30)
[2019-11-12] MEDS: LATANOPROST 0.005% OPH SOLN 2.5 ML BOTTLE BOTH EYES SCH (20:31)
[2019-11-12] MEDS: MINERAL OIL 30 ML UDCUP PEG SCH (20:32)
[2019-11-13] MEDS: INSULIN REGULAR 100 UNIT/ML SUBCUT SCH ×4 (00:12→17:39)
[2019-11-13] MEDS: ALBUTEROL/IPRATROPIUM 3 ML NEB RESP TX SCH ×3 (01:18→13:26)
[2019-11-13 04:30] LABS: Basophils % 0.2 % (0.0-0.8); Eosinophils # 0.3 10*3/uL (0.0-0.87); Hematocrit 32.2 VOL% (42.0-52.0); Hemoglobin 9.6 GM/DL (14.0-18.0); Immature Granulocytes % 0.9 %; Immature Granulocytes Absolute 0.09 #; Lymphocytes # 2.7 10*3/uL (1.4-4.0); Lymphocytes % 28.8 % (21.2-54.2); Mean Corpuscular HGB Conc 29.8 GM/DL (32-36); Mean Corpuscular Volume 101.6 FL (87-102); Mean Platelet Volume 9.3 FL (9.6-12.0); Monocytes % 9.1 % (1.7-12.7); Platelet Count 577 T/CUMM (130-400); Red Blood Count 3.17 MC/CUMM (3.8-5.5); Red Cell Distribution Width 15.9 % (9.3-17.3); White Blood Count 9.5 T/CUMM (4-12)
[2019-11-13 04:41] LABS: Calcium 9.2 MG/DL (8.5-10.1)
[2019-11-13] MEDS: LEVOTHYROXINE 125 MCG TABLET PEG SCH (05:49)
[2019-11-13] MEDS: HEPARIN 5,000 UNIT/1 ML VIAL SUBCUT SCH ×2 (05:49→17:39)
[2019-11-13] MEDS: OMEPRAZOLE ODT 20 MG TABLET NG SCH (08:14)
[2019-11-13] MEDS: ASPIRIN CHEW 81 MG TABLET PO SCH (08:14)
[2019-11-13] MEDS: FUROSEMIDE 40 MG/4 ML VIAL IV SCH (08:14)
[2019-11-13] MEDS: MENTHOL/ZINC OXIDE OINT 71 GM JAR TOP SCH (08:14)
[2019-11-13] MEDS: TIMOLOL 0.5% OPH SOLN 5 ML BOTTLE BOTH EYES SCH (08:15)
[2019-11-13] MEDS: AMIODARONE 200 MG TABLET PEG SCH (08:19)
[2019-11-13] MEDS ORDERED: traMADol 50 MG TABLET PO PRN (11:06)
[2019-11-13] MEDS ORDERED: INSULIN GLARGINE 100 UNIT/ML SUBCUT SCH (11:30)
[2019-11-13] MEDS ORDERED: PIPERACILLIN/TAZOBACTAM 3,375 MG in SODIUM CHLORIDE 0.9% 100 ML IV SCH (11:30)
[2019-11-13 12:06] VITALS: BP 99/65
[2019-11-13] MEDS ORDERED: BRIMONIDINE 0.15% OPH SOLN 1 DROP/DROPS BOTTLE BOTH EYES SCH (19:00)
== END 2019-11-13 19:10 | DRG 870 ==
LOC: EDUNIT# → N.ED 17:05 → N.EDINP 21:55 → SUATTDRO 21:55 → N.CC 22:48 → N.ICU 11-05 18:47
PROVIDERS: ADMIT Internal Medicine; ATTEND Internal Medicine